=== PATIENT | female | born 1960 | race Caucasian/White ===

== ENCOUNTER 2023-03-13 11:05 | Outpatient (OUT) | payer MEDICARE, SELFPAY ==
[2023-03-13 11:37] LABS: Basophils Percent Auto 0.5 % (0.2-2.0); Eosinophils Absolute Auto 0.1 10^3/uL (0.0-0.7); Eosinophils Percent Auto 1.6 % (0.9-7.0); Hematocrit 42.7 % (36.0-48.0); Hemoglobin 14.7 g/dL (12.0-16.0); Immature Granulocytes Abs Auto 0.04 10^3/uL (0.00-0.03); Immature Granulocytes Pct Auto 0.7 % (0.0-0.5); Lymphocytes Absolute Auto 1.5 10^3/uL (1.2-3.8); Lymphocytes Percent Auto 26.3 % (20.5-60.0); Mean Corpuscular HGB Conc 34.4 g/dL (29.9-35.2); Mean Corpuscular Hemoglobin 30.5 pg (26.7-34.0); Mean Corpuscular Volume 88.6 fL (81.0-99.0); Mean Platelet Volume 9.7 fL (9.5-13.5); Monocytes Absolute Auto 0.6 10^3/uL (0.3-0.8); Monocytes Percent Auto 10.2 % (1.7-12.0); Neutrophils Absolute Auto 3.5 10^3/uL (1.4-6.5); Neutrophils Percent Auto 60.7 % (43.0-75.0); Platelet Count 196 10^3/uL (150-450); Red Blood Count 4.82 10^6/uL (4.20-5.40); Red Cell Distribution Width 14.4 % (11.0-15.0); White Blood Count 5.7 10^3/uL (4.0-11.0)
[2023-03-13 12:03] LABS: Estimated Average Glucose 97 mg/dL
[2023-03-13 12:42] LABS: Alanine Aminotransferase 31 U/L (14-59); Albumin Globulin Ratio 1.2; Albumin Level 4.4 g/dL (3.4-5.0); Alkaline Phosphatase 134 U/L (46-116); Anion Gap 17.7; Aspartate Amino Transferase 35 U/L (15-37); BUN Creatinine Ratio 5.8; Bilirubin Total 0.5 mg/dL (0.2-1.0); Calcium 9.4 mg/dL (8.5-10.1); Carbon Dioxide 20.7 mmol/L (21.0-32.0); Chloride 100 mmol/L (98-107); Chol HDL Ratio 3.2; Cholesterol 279 mg/dL (<=200); Estimated GFR (African America 55 (>=60); Estimated GFR (Non-African Ame 45 (>=60); Free T3 2.73 pg/mL (2.18-3.98); Globulin 3.6 g/dL; Glucose 124 mg/dL (74-106); HDL Cholesterol 86 mg/dL (40-60); Potassium 3.4 mmol/L (3.5-5.1); Sodium 135 mmol/L (136-145); Thyroid Stimulating Hormone 4.624 uIU/mL (0.358-3.740); Triglycerides 234 mg/dL (<=150); Uric Acid 11.4 mg/dL (2.6-6.0); VLDL CHOLESTEROL 46.8 mg/dL
[2023-03-14 15:31] LABS: Bilirubin Urine NEGATIVE (NEGATIVE); Blood Urine NEGATIVE (NEGATIVE); Clarity Urine CLEAR (CLEAR); Color Urine LT. YELLOW (YELLOW); Glucose Urine UA NEGATIVE (NEGATIVE); Ketones Urine NEGATIVE (NEGATIVE); Leukocyte Esterase Urine NEGATIVE (NEGATIVE); Nitrite Urine NEGATIVE (NEGATIVE); Protein Urine NEGATIVE (NEG/TRACE); Urobilinogen Urine 0.2 EU/dL (0.2-1.0)
[2023-03-14 15:36] LABS: Bacteria Urine NONE SEEN #/HPF (NONE SEEN); Cast Seen? NONE SEEN #/LPF (NONE SEEN); Crystals Seen? None Seen #/HPF (None Seen); Mucus Urine NONE SEEN (NONE SEEN); RBC Urine NONE SEEN #/HPF (0-2); Squamous Epithelial Cell Urine MANY #/LPF (NONE/RARE); WBC Urine NONE SEEN #/HPF (NONE SEEN)
== END 2023-03-13 11:06 | disposition home or self-care (01) ==
PROVIDERS: PCP Nurse Practitioner; Visit Provider Nurse Practitioner
DX: E03.9 Hypothyroidism, unspecified (principal); E55.9 Vitamin D deficiency, unspecified; M10.9 Gout, unspecified; R73.9 Hyperglycemia, unspecified; F10.21 Alcohol dependence, in remission
CPT/HCPCS: 36415; 80053; 80061; 81001; 82306; 82607; 83036; 84443; 84481; 84550; 85025

== ENCOUNTER 2023-10-15 09:18 | Outpatient (OUT) | payer MEDICARE, SELFPAY ==
[2023-10-15 10:01] LABS: Basophils Percent Auto 0.4 % (0.2-2.0); Eosinophils Absolute Auto 0.2 10^3/uL (0.0-0.7); Eosinophils Percent Auto 2.9 % (0.9-7.0); Hematocrit 35.9 % (36.0-48.0); Hemoglobin 11.6 g/dL (12.0-16.0); Immature Granulocytes Abs Auto 0.05 10^3/uL (0.00-0.03); Lymphocytes Absolute Auto 1.2 10^3/uL (1.2-3.8); Lymphocytes Percent Auto 23.2 % (20.5-60.0); Mean Corpuscular HGB Conc 32.3 g/dL (29.9-35.2); Mean Corpuscular Hemoglobin 31.1 pg (26.7-34.0); Mean Corpuscular Volume 96.2 fL (81.0-99.0); Monocytes Absolute Auto 0.4 10^3/uL (0.3-0.8); Monocytes Percent Auto 7.5 % (1.7-12.0); Neutrophils Absolute Auto 3.4 10^3/uL (1.4-6.5); Platelet Count 116 10^3/uL (150-450); Red Blood Count 3.73 10^6/uL (4.20-5.40); Red Cell Distribution Width 14.6 % (11.0-15.0); White Blood Count 5.2 10^3/uL (4.0-11.0)
[2023-10-15 10:39] LABS: Creatinine Urine Random 70.98 mg/dL (20.00-300.00); Microalbum Creatinine Ratio Ur 18.3 mg/g (0.0-29.9); Microalbumin Urine Random <1.3 mg/dL (<=30.0)
[2023-10-15 11:02] LABS: Alanine Aminotransferase 27 U/L (14-59); Albumin Globulin Ratio 1.3; Albumin Level 3.9 g/dL (3.4-5.0); Alkaline Phosphatase 133 U/L (46-116); Anion Gap 18.7; Aspartate Amino Transferase 27 U/L (15-37); BUN Creatinine Ratio 6.7; Bilirubin Total 0.3 mg/dL (0.2-1.0); Calcium 8.9 mg/dL (8.5-10.1); Carbon Dioxide 20.7 mmol/L (21.0-32.0); Chloride 104 mmol/L (98-107); Estimated GFR (African America >60 (>=60); Estimated GFR (Non-African Ame 53 (>=60); Glucose 122 mg/dL (74-106); Potassium 4.4 mmol/L (3.5-5.1); Sodium 139 mmol/L (136-145); TSH W/ REFLEX FT4 3.418 uIU/mL (0.358-3.740); Total Protein 6.9 g/dL (6.4-8.2)
[2023-10-15 11:29] LABS: Bilirubin Urine NEGATIVE (NEGATIVE); Blood Urine NEGATIVE (NEGATIVE); Clarity Urine CLEAR (CLEAR); Color Urine YELLOW (YELLOW); Glucose Urine UA NEGATIVE (NEGATIVE); Ketones Urine NEGATIVE (NEGATIVE); Leukocyte Esterase Urine NEGATIVE (NEGATIVE); Nitrite Urine NEGATIVE (NEGATIVE); Protein Urine NEGATIVE (NEG/TRACE); Urobilinogen Urine 0.2 EU/dL (0.2-1.0)
[2023-10-15 11:33] LABS: Urine Microscopic Indicated NO
[2023-10-15 17:06] LABS: Estimated Average Glucose 105 mg/dL; Glycohemoglobin A1C 5.3 % (4.5-6.2)
== END 2023-10-15 09:19 | disposition home or self-care (01) ==
LOC: LAB 09:20
PROVIDERS: PCP Nurse Practitioner; Visit Provider Nurse Practitioner
DX: E03.9 Hypothyroidism, unspecified (principal); E55.9 Vitamin D deficiency, unspecified; E53.8 Deficiency of other specified B group vitamins; R42 Dizziness and giddiness; I10 Essential (primary) hypertension; E59 Dietary selenium deficiency; R73.09 Other abnormal glucose
CPT/HCPCS: 36415; 80053; 81001; 81003; 82043; 82306; 82570; 82607; 83036; 84443; 85025

== ENCOUNTER 2024-01-02 16:16 | Observation (INO) | payer MEDICARE, SELFPAY ==
[2024-01-02] VITALS (31 sets, daily range): BP systolic 119–167; BP diastolic 75–108; PULSE 48–68; TEMP 36.4–36.9; O2SAT 48–99; BMI 25.4
--- NOTE | 2024-01-02 16:59 | CT_ITS ---
[facility] [address] [place], [place] [address] Patient Name: ROSENDA ALEXANDER MRN: [id number] date: 1960 Sex: F Assigned Patient Location: ER Current Patient Location: .[facility] Accession/Order Number: [id number] Exam Date: 01/02/2024 18:05 Report Date: 01/02/2024 20:01 At the request of: JEAN CLAUDE CARLOS Procedure: CT abdomen pelvis w con EXAM: CT abdomen pelvis w con HISTORY: Abdominal pain . Nausea, vomiting, diarrhea, and dizziness for one month. COMPARISON: None. TECHNIQUE: Enhanced helical acquisition obtained through the abdomen and the pelvis. FINDINGS: Moderate calcifications of the partially included coronary arteries. There is mild image degradation secondary to patient motion. The visualized lung bases and pleural spaces are clear. Hepatic steatosis. Prior cholecystectomy. The spleen, pancreas, and the adrenal glands are unremarkable. Moderate bilateral renal cortical scarring. Bilateral renal cysts, the largest arising exophytically from the posterior right renal cortex measuring 2.3 cm. Retroaortic left renal vein, anatomic variant. Moderate diffuse atherosclerotic disease throughout the abdominal aorta and iliac arteries. No enlarged lymph nodes within the abdomen or the pelvis. Normal appendix. There appears to be mild diffuse colonic wall thickening with minimal adjacent pericolonic edema, which raises concern for an underlying mild pancolitis. Trace ascites within the pelvis. CT/CT abdomen pelvis w con IMPRESSION: 1. There appears to be mild diffuse colonic wall thickening with minimal adjacent pericolonic edema which suggests a diffuse mild pancolitis. Recommend correlation for C. difficile. 2. Trace ascites. 3. Normal appendix. 4. Bilateral renal cortical scarring. Bilateral renal cysts. 5. Hepatic steatosis. Prior cholecystectomy. Electronically authenticated by: MOLLY CONTE Date: 01/02/2024 20:01
--- NOTE | 2024-01-02 16:59 | ECG_ITS ---
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
--- NOTE | 2024-01-02 17:00 | ED.GENADUL1 ---
HPI HPI - General Adult General Chief complaint: Nausea/Vomiting/Diarrhea Stated complaint: Nausea/Vomiting/Diarrhea Time Seen by Provider: 01/02/24 16:42 Source: patient Mode of arrival: walk-in Limitations: no limitations History of Present Illness HPI narrative: Patient is a 63-year-old female with a history of alcoholism who presents to the emergency department for a 1 month history of constant nausea. She reports associated vomiting and diarrhea. She states she last had 2 beers yesterday. She reports diffuse abdominal pain. She has not had any blood in her stool but states she has vomited and seen a small amount of blood. She had an EGD years ago showing a bleeding ulcer. She has not had any persistent hematemesis. She states she called her PCP office but could not get in and came to the ER. She has no fevers, upper respiratory symptoms, chest pain, syncope, urinary symptoms. Related Data Allergies Allergy/AdvReac Type Severity Reaction Status Date / Time Penicillins Allergy Mild Verified 01/02/24 16:21 Opioid HPI Opioid Management Most Recent Opioid Data: No Data to Display Review of Systems ROS Constitutional Denies: fever or chills Ears, nose, mouth, and throat Denies: throat pain or nasal congestion Cardiovascular Denies: chest pain Respiratory Denies: shortness of breath Gastrointestinal Reports: abdominal pain, nausea, vomiting and diarrhea Musculoskeletal Denies: back pain or neck pain Integumentary/Breast Denies: rash Neurological Denies: headache Hematologic/Lymphatic Denies: easy bruising or easy bleeding Exam Narrative Exam Narrative: Gen.: Awake, alert, in no distress Head: Normocephalic, atraumatic ENT: Moist mucous membranes Respiratory: No respiratory distress, lungs clear bilaterally Cardio: Regular rate and rhythm Gastrointestinal: Abdomen is soft, nondistended and nontender to palpation Extremities: Moves extremities equally Psych: Normal mood and affect Neuro: No focal neuro deficit Skin: Warm, dry, intact Constitutional Vital Signs, click to edit/add: Last Vital Signs Temp 98.5 F 01/02/24 16:21 Pulse 64 01/02/24 16:21 Resp 18 01/02/24 16:21 BP 138/75 01/02/24 16:21 Pulse Ox 99 01/02/24 16:21 O2 Del Method Room Air 01/02/24 16:21 Course Vital Signs Vital signs: Vital Signs Temperature 98.5 F 01/02/24 16:21 Pulse Rate 64 01/02/24 16:21 Respiratory Rate 18 01/02/24 16:21 Blood Pressure 138/75 01/02/24 16:21 Pulse Oximetry 99 01/02/24 16:21 Oxygen Delivery Method Room Air 01/02/24 16:21 Temperature 98.5 F 01/02/24 16:21 Pulse Rate 64 01/02/24 16:21 Respiratory Rate 18 01/02/24 16:21 Blood Pressure 138/75 01/02/24 16:21 Pulse Oximetry 99 01/02/24 16:21 Oxygen Delivery Method Room Air 01/02/24 16:21 Medical Decision Making MDM Narrative Medical decision making narrative: Patient treated with IV fluids, banana bag. Zofran given for nausea. Patient reports still feeling nauseous, she feels generally weak. Labs show low magnesium, low potassium. She was treated with a banana bag, oral potassium and IV magnesium. CT shows pancolitis with concern for possible C. difficile. Stool culture is pending, patient treated with IV Cipro and FlagylShe will be admitted for IV fluids, symptom control. Stable at time of admission to the hospitalist. She was strongly encouraged to give a stool specimen to rule out C. difficile. Medical Records Medical records reviewed: Yes I reviewed the patient's medical records Lab Data Lab results reviewed: Yes I reviewed the patient's lab results Labs: Lab Results 01/02/24 Range/Units 17:05 WBC 4.7 (4.0-11.0) 10^3/uL RBC 4.24 (4.20-5.40) 10^6/uL Hgb 13.2 (12.0-16.0) g/dL Hct 38.8 (36.0-48.0) % MCV 91.5 (81.0-99.0) fL MCH 31.1 (26.7-34.0) pg MCHC 34.0 (29.9-35.2) g/dL RDW 13.5 (11.0-15.0) % Plt Count 130 L (150-450) 10^3/uL MPV 11.2 (9.5-13.5) fL Neut % (Auto) 60.7 (43.0-75.0) % Lymph % (Auto) 26.0 (20.5-60.0) % [place] % (Auto) 9.5 (1.7-12.0) % Eos % (Auto) 2.1 (0.9-7.0) % Baso % (Auto) 0.6 (0.2-2.0) % Neut # (Auto) 2.9 (1.4-6.5) 10^3/uL Lymph # (Auto) 1.2 (1.2-3.8) 10^3/uL [place] # (Auto) 0.5 (0.3-0.8) 10^3/uL Eos # (Auto) 0.1 (0.0-0.7) 10^3/uL Baso # (Auto) 0.0 (0.0-0.1) 10^3/uL Abs Immat Gran (auto) 0.05 H (0.00-0.03) 10^3/uL Imm/Tot Granulo (auto) 1.1 H (0.0-0.5) % Sodium 138 (136-145) mmol/L Potassium 3.2 L (3.5-5.1) mmol/L Chloride 99 (98-107) mmol/L Carbon Dioxide 20.3 L (21.0-32.0) mmol/L Anion Gap 21.9 BUN 3.0 L (7.0-18.0) mg/dL Creatinine 0.84 (0.55-1.02) mg/dL Est GFR ( Amer) >60 (>=60) Est GFR (Non-Af Amer) >60 (>=60) BUN/Creatinine Ratio 3.6 Glucose 109 H (74-106) mg/dL Lactate 2.3 H* (0.4-2.0) mmol/L Calcium 9.1 (8.5-10.1) mg/dL Magnesium 1.7 L (1.8-2.4) mg/dL Total Bilirubin 0.5 (0.2-1.0) mg/dL AST 171 H (15-37) U/L ALT 104 H (14-59) U/L Alkaline Phosphatase 164 H (46-116) U/L Total Protein 7.2 (6.4-8.2) g/dL Albumin 3.4 (3.4-5.0) g/dL Globulin 3.8 g/dL Albumin/Globulin Ratio 0.9 Lipase 70.0 (16.0-77.0) U/L Ethanol Quant 4 mg/dL Imaging Data CT scan - abdomen: Attestation: I have reviewed the pertinent imaging results. Radiologist's impression: ITS Impressions Abdomen/Pelvis CT 01/02/24 16:59 IMPRESSION: 1. There appears to be mild diffuse colonic wall thickening with minimal adjacent pericolonic edema which suggests a diffuse mild pancolitis. Recommend correlation for C. difficile. 2. Trace ascites. 3. Normal appendix. 4. Bilateral renal cortical scarring. Bilateral renal cysts. 5. Hepatic steatosis. Prior cholecystectomy. Electronically authenticated by: MOLLY CONTE Date: 01/02/2024 19:33 Discharge Plan Discharge Chief Complaint: Nausea/Vomiting/Diarrhea Patient Disposition: Admitted as Observation Time of Disposition Decision: 19:54 Print Language: Belarusian Referrals: Roopa Galo NP [Primary Care Provider] - 1 week
[2024-01-02 17:11] LABS: Basophils Percent Auto 0.6 % (0.2-2.0); Eosinophils Absolute Auto 0.1 10^3/uL (0.0-0.7); Eosinophils Percent Auto 2.1 % (0.9-7.0); Hematocrit 38.8 % (36.0-48.0); Hemoglobin 13.2 g/dL (12.0-16.0); Immature Granulocytes Abs Auto 0.05 10^3/uL (0.00-0.03); Immature Granulocytes Pct Auto 1.1 % (0.0-0.5); Lymphocytes Absolute Auto 1.2 10^3/uL (1.2-3.8); Mean Corpuscular Hemoglobin 31.1 pg (26.7-34.0); Mean Corpuscular Volume 91.5 fL (81.0-99.0); Mean Platelet Volume 11.2 fL (9.5-13.5); Monocytes Absolute Auto 0.5 10^3/uL (0.3-0.8); Monocytes Percent Auto 9.5 % (1.7-12.0); Neutrophils Absolute Auto 2.9 10^3/uL (1.4-6.5); Neutrophils Percent Auto 60.7 % (43.0-75.0); Platelet Count 130 10^3/uL (150-450); Red Blood Count 4.24 10^6/uL (4.20-5.40); Red Cell Distribution Width 13.5 % (11.0-15.0); White Blood Count 4.7 10^3/uL (4.0-11.0)
[2024-01-02] MEDS: ONDANSETRON PF 4 MG/2 ML VIAL IV (17:15)
[2024-01-02] MEDS: MULTIVIT INFUSN,ADULT 4,VIT K 10 ML in 0.9 % SODIUM CHLORIDE 1,000 ML 125 ML IV (17:16)
[2024-01-02 17:33] LABS: Alanine Aminotransferase 104 U/L (14-59); Albumin Globulin Ratio 0.9; Albumin Level 3.4 g/dL (3.4-5.0); Alkaline Phosphatase 164 U/L (46-116); Anion Gap 21.9; Aspartate Amino Transferase 171 U/L (15-37); BUN Creatinine Ratio 3.6; Bilirubin Total 0.5 mg/dL (0.2-1.0); Calcium 9.1 mg/dL (8.5-10.1); Carbon Dioxide 20.3 mmol/L (21.0-32.0); Chloride 99 mmol/L (98-107); Estimated GFR (African America >60 (>=60); Estimated GFR (Non-African Ame >60 (>=60); Globulin 3.8 g/dL; Glucose 109 mg/dL (74-106); Potassium 3.2 mmol/L (3.5-5.1); Sodium 138 mmol/L (136-145); Total Protein 7.2 g/dL (6.4-8.2)
[2024-01-02 17:58] LABS: Lactate/Lactic Acid 2.3 mmol/L (0.4-2.0)
[2024-01-02 18:02] LABS: Ethanol 4 mg/dL; Magnesium 1.7 mg/dL (1.8-2.4)
[2024-01-02] MEDS: POTASSIUM CHLORIDE 10 MEQ ER TABLET 40 MEQ PO (19:58)
[2024-01-02] MEDS: PROMETHAZINE HCL 12.5 MG in 0.9 % SODIUM CHLORIDE 50 ML 202 MG IV (19:58)
[2024-01-02] MEDS: MAGNESIUM SULFATE IN WATER 2 GM/50 ML PREMIX IV (19:59)
[2024-01-02] MEDS: CIPROFLOXACIN IN 5 % DEXTROSE 400 MG/200 ML PIGGYBACK 200 MG IV (19:59)
[2024-01-02] MEDS: METRONIDAZOLE/SODIUM CHLORIDE 500 MG/100 ML PREMIX 100 MG IV (19:59)
[2024-01-02 20:27] LABS: Lactate/Lactic Acid 0.8 mmol/L (0.4-2.0)
[2024-01-02 22:18] LABS: Bilirubin Urine NEGATIVE (NEGATIVE); Blood Urine NEGATIVE (NEGATIVE); Clarity Urine CLEAR (CLEAR); Color Urine LT. YELLOW (YELLOW); Glucose Urine UA NEGATIVE (NEGATIVE); Ketones Urine NEGATIVE (NEGATIVE); Leukocyte Esterase Urine NEGATIVE (NEGATIVE); Nitrite Urine NEGATIVE (NEGATIVE); Protein Urine NEGATIVE (NEG/TRACE); Specific Gravity Urine <=1.005 (1.005-1.025); Urine Microscopic Indicated NO; pH Urine 6.5 (5.0-9.0)
[2024-01-02] MEDS: LACTATED RINGER'S SOLUTION 1,000 ML 125 ML IV (23:11)
[2024-01-02] MEDS: TRAZODONE HCL 50 MG TABLET 100 MG PO (23:11)
[2024-01-02] MEDS: CLONIDINE HCL 0.2 MG TABLET 0.200000000000000011 MG PO (23:11)
[2024-01-03] VITALS (15 sets, daily range): BP systolic 107–122; BP diastolic 66–77; PULSE 45–65; TEMP 36.3–36.8; O2SAT 49–97
[2024-01-03 05:27] LABS: Basophils Percent Auto 0.3 % (0.2-2.0); Eosinophils Absolute Auto 0.1 10^3/uL (0.0-0.7); Eosinophils Percent Auto 2.2 % (0.9-7.0); Hematocrit 33.3 % (36.0-48.0); Hemoglobin 11.1 g/dL (12.0-16.0); Immature Granulocytes Abs Auto 0.02 10^3/uL (0.00-0.03); Immature Granulocytes Pct Auto 0.5 % (0.0-0.5); Lymphocytes Absolute Auto 1.3 10^3/uL (1.2-3.8); Lymphocytes Percent Auto 36.3 % (20.5-60.0); Mean Corpuscular HGB Conc 33.3 g/dL (29.9-35.2); Mean Corpuscular Hemoglobin 31.4 pg (26.7-34.0); Mean Corpuscular Volume 94.1 fL (81.0-99.0); Mean Platelet Volume 11.1 fL (9.5-13.5); Monocytes Absolute Auto 0.5 10^3/uL (0.3-0.8); Monocytes Percent Auto 13.8 % (1.7-12.0); Neutrophils Absolute Auto 1.7 10^3/uL (1.4-6.5); Neutrophils Percent Auto 46.9 % (43.0-75.0); Platelet Count 95 10^3/uL (150-450); Red Blood Count 3.54 10^6/uL (4.20-5.40); Red Cell Distribution Width 13.8 % (11.0-15.0); White Blood Count 3.7 10^3/uL (4.0-11.0)
[2024-01-03] MEDS: METRONIDAZOLE/SODIUM CHLORIDE 500 MG/100 ML PREMIX 100 MG IV ×3 (05:41→22:31)
[2024-01-03 05:49] LABS: Alanine Aminotransferase 70 U/L (14-59); Albumin Globulin Ratio 0.9; Albumin Level 2.7 g/dL (3.4-5.0); Alkaline Phosphatase 125 U/L (46-116); Anion Gap 10.2; Aspartate Amino Transferase 80 U/L (15-37); BUN Creatinine Ratio 5.5; Bilirubin Total 0.3 mg/dL (0.2-1.0); Calcium 8.7 mg/dL (8.5-10.1); Carbon Dioxide 25.1 mmol/L (21.0-32.0); Chloride 107 mmol/L (98-107); Estimated GFR (African America >60 (>=60); Estimated GFR (Non-African Ame >60 (>=60); Globulin 2.9 g/dL; Glucose 111 mg/dL (74-106); Potassium 3.3 mmol/L (3.5-5.1); Sodium 139 mmol/L (136-145); Total Protein 5.6 g/dL (6.4-8.2)
[2024-01-03] MEDS: CLONIDINE HCL 0.2 MG TABLET 0.200000000000000011 MG PO ×2 (08:10→20:57)
[2024-01-03] MEDS: POTASSIUM CHLORIDE 10 MEQ ER TABLET 40 MEQ PO ×2 (08:10→13:19)
[2024-01-03] MEDS: ALLOPURINOL 100 MG TABLET 200 MG PO (08:11)
[2024-01-03] MEDS: THIAMINE MONONITRATE (VIT B1) 100 MG TABLET PO (08:11)
[2024-01-03] MEDS: COLCHICINE 0.6 MG TABLET 0.599999999999999978 MG PO ×2 (08:11→20:58)
[2024-01-03] MEDS: MULTIVITAMIN TABLET 1 TAB PO (08:11)
[2024-01-03] MEDS: FOLIC ACID 1 MG TABLET PO (08:11)
[2024-01-03] MEDS: METOPROLOL TARTRATE 25 MG TABLET 12.5 MG PO ×2 (08:11→20:57)
[2024-01-03] MEDS: ESCITALOPRAM 10 MG TABLET 20 MG PO (08:11)
[2024-01-03] MEDS: risperiDONE 1 MG TABLET PO (08:11)
[2024-01-03] MEDS: CIPROFLOXACIN IN 5 % DEXTROSE 400 MG/200 ML PIGGYBACK 200 MG IV ×2 (08:12→20:54)
[2024-01-03] MEDS: LACTATED RINGER'S SOLUTION 1,000 ML 125 ML IV ×2 (08:12→17:02)
[2024-01-03] MEDS: PANTOPRAZOLE SODIUM 40 MG VIAL IV (08:13)
[2024-01-03] MEDS: LORAZEPAM 1 MG TABLET PO ×2 (08:55→20:39)
[2024-01-03] MEDS: ONDANSETRON PF 4 MG/2 ML VIAL IV (08:55)
[2024-01-03 09:34] LABS: Magnesium 2.3 mg/dL (1.8-2.4)
--- NOTE | 2024-01-03 11:46 | CM.NOTE ---
Rounds made with Dr. Sosa. Samantha states she is feeling hungry now and Dr. Sosa was agreeable to advance diet as tolerated. Discussed need for stool sample. No discharge today.
--- NOTE | 2024-01-03 13:52 | P.HP_ITS ---
<Statement entered by Vic Sosa MD - 01/03/24 21:41> Patient seen and examined, agree with assessment and plan below. Presented with abdominal pain and diarrhea for several weeks. Increased pain and to ER. CT showed colitis and admitted. Started cipro and flagyl. Started clear liquid and tolerated. Resumed home medication Diagnosis: 1. Colitis 2. Abdominal pain 3. Nausea and vomiting 4. Alcohol abuse 5. HTN HPI H&P: HPI History of Present Illness Chief complaint: Nausea/Vomiting/Diarrhea, Colitis Narrative: 01/03/24 1000 This is a 63-year-old female patient with a past medical history as outlined below including hypertension, depression, anxiety, hypothyroidism, gout, tobacco dependence, and history of EtOH abuse; who presented to the ED yesterday afternoon complaining of 1 month course of nausea and vomiting and diarrhea and diffuse abdominal pain. The patient reports near daily nausea and vomiting and diarrhea up to 10 episodes per day. She reports 1 emesis mixed with blood about 3 weeks ago, but otherwise no further hematemesis. The patient reports her stools have been watery and nearly uncontrollable. She denies any fevers at home. She was trying to take care of this issue herself but finally presented to the ED for further evaluation. Workup in the ED revealed mild hypokalemia (3.2), hypomagnesemia (1.7), mild lactic acidosis (2.3, 0.8 after IV fluids), and transaminitis (AST 171, ALT 104, alk phos 164). An EtOH level was [address] of the abdomen and pelvis revealed pancolitis suspicious for C. difficile and hepatic steatosis. She was admitted in observation last night to the hospitalist service for pancolitis, rule out C. difficile, and transaminitis. At the time of my exam the patient is resting comfortably in bed. She has been unable to produce a stool sample since admission so presence of C. difficile toxin is still unknown. We will continue treatment with Cipro and Flagyl for general infectious colitis pending stool culture results. Should C. difficile be identified we will change her treatment to p.o. vancomycin. Patient's hypokalemia was repleted in the ED yesterday but it still persist on a.m. labs and we will give further KCl doses today. Additional workup for the patient's transaminitis will be ordered with an ultrasound of the liver and an acute hepatitis panel. Although we suspect alcoholic etiology, we must rule out other possible etiologies as well. Opioid HPI Opioid Management Most Recent Opioid Data: Last Pain Assessment 01/03/24 13:25 Last ORT Total Score 4 01/02/24 21:43 Last ORT Risk Category Moderate Risk 01/02/24 21:43 Review of Systems ROS Status of ROS 10 or more systems reviewed and unremark able except as noted in history and below PFSH PFS Medical History (Updated 01/03/24 @ 14:10 by Nora Dupree NP) Tobacco dependence ?F17.200 - Nicotine dependence, unspecified, uncomplicated (ICD-10) Hypertension ?I10 - Essential (primary) hypertension (ICD-10) Alcohol abuse ?F10.10 - Alcohol abuse, uncomplicated (ICD-10) Hypothyroidism ?E03.9 - Hypothyroidism, unspecified (ICD-10) Heart palpitations ?R00.2 - Palpitations (ICD-10) Anxiety ?F41.9 - Anxiety disorder, unspecified (ICD-10) Depression ?F32.A - Depression, unspecified (ICD-10) Gout ?M10.9 - Gout, unspecified (ICD-10) Family History (Updated 01/02/24 @ 21:32 by Niurka Willis RN) Other Family history of hypertension Family history of myocardial infarction Social History (Updated 01/02/24 @ 21:34 by Niurka Willis RN) Within the past year, how often did you have a drink containing alcohol: 4 or more times a week Within the past year, how many standard drinks containing alcohol did you have on a typical day: 7 to 9 Within the past year, how often did you have six or more drinks on one occasion: daily or almost daily Total score: 10 Score interpretation: A score of 3 or more indicates drinking is likely to affect patient's safety. Smoking status: Current every day smoker Non-prescribed substance use: denies use Highest level of school completed/degree received: 10th grade In a typical week, how many times do you talk on the telephone with family, friends, or neighbors: twice per week How often do you get together with friends or relatives: twice per week How often do you attend bahai or pentecostal services: never Little interest or pleasure in doing things: several days Feeling down, depressed, or hopeless: several days Feel stressed/tense/nervous/anxious/difficulty sleeping: very much Do you think of yourself as: straight/heterosexual Gender Identity: female Meds Home Medications and Allergies Home Medications ?Medication ?Instructions ?Recorded ?Confirmed ?Type allopurinol 100 mg tablet 200 mg PO DAILY 01/02/24 01/02/24 History clonidine HCl 0.2 mg tablet 0.2 mg PO Q12H 01/02/24 01/02/24 History colchicine 0.6 mg tablet 0.6 mg PO BID 01/02/24 01/02/24 History escitalopram oxalate 20 mg tablet 20 mg PO DAILY 01/02/24 01/02/24 History metoprolol tartrate 25 mg tablet 12.5 mg PO Q12H 01/02/24 01/02/24 History risperidone 1 mg tablet 1 mg PO DAILY 01/02/24 01/02/24 History trazodone 100 mg tablet 100 mg PO DAILY 01/02/24 01/02/24 History Allergies Allergy/AdvReac Type Severity Reaction Status Date / Time Penicillins Allergy Mild Verified 01/02/24 16:21 Exam Constitutional Vital Signs, click to edit/add: Last Vital Signs Temp 97.4 F L 01/03/24 13:25 Pulse 49 L 01/03/24 13:25 Resp 16 01/03/24 13:25 BP 114/71 01/03/24 13:25 Pulse Ox 95 01/03/24 13:25 O2 Del Method Room Air 01/03/24 13:25 Common normals: no apparent distress, oriented x3, alert and well nourished General appearance: cooperative Orientation/consciousness: Yes awake [facility] Common normals: normocephalic, head/scalp atraumatic, hearing grossly normal bilaterally, external nose normal and moist oral mucous membranes Eye Common normals: PERRL, EOMs intact bilaterally, conjunctivae normal and no scleral icterus Alignment: alignment normal Eyelid: eyelids normal Neck & C-Spine Common normals: full ROM, supple and no JVD Chest Common normals: inspection of chest normal Chest: symmetrical chest wall rise Respiratory Common normals: normal respiratory effort, no retractions, no use of accessory muscles and clear to auscultation bilaterally Effort & inspection: able to speak in complete sentences Auscultation: diminished lung sounds (BLL) Cardio Common normals: no JVD, regular rate, regular rhythm, S1 normal heart sound, S2 normal heart sound, no gallops, no clicks, no murmurs, no rub and peripheral pulses 2+ throughout GI Common normals: Normal to inspection, nondistended, normoactive bowel sounds present, soft to palpation, no hepatosplenomegaly, no masses and no bruits Palpation: tender (Diffuse, non-focal, mild); no guarding, not rigid and no rebound tenderness present Bladder/kidney exam: bladder normal to palpation Extremity Common normals: normal capillary refill and no pedal edema General: normal exam except as noted; no clubbing and no cyanosis Neuro Tushar Coma Scale: GCS not evaluated Common normals: CN's II-XII intact bilaterally, moves all extremities, no focal motor deficits and no sensory deficits noted Speech: speech normal Motor exam: strength 5/5 throughout Psych Common normals: mental status grossly normal, thought process normal, affect normal and activity/motor behavior normal Results Labs Labs: Short CBC 01/02/24 01/03/24 Range/Units 17:05 04:47 WBC 4.7 3.7 L (4.0-11.0) 10^3/uL Hgb 13.2 11.1 L (12.0-16.0) g/dL Hct 38.8 33.3 L (36.0-48.0) % Plt Count 130 L 95 L (150-450) 10^3/uL BMP 01/02/24 01/03/24 17:05 04:47 Sodium 138 139 Potassium 3.2 L 3.3 L Chloride 99 107 Carbon Dioxide 20.3 L 25.1 BUN 3.0 L 5.0 L Creatinine 0.84 0.91 Glucose 109 H 111 H Calcium 9.1 8.7 Liver Function 01/02/24 01/03/24 Range/Units 17:05 04:47 Total Bilirubin 0.5 0.3 (0.2-1.0) mg/dL AST 171 H 80 H (15-37) U/L ALT 104 H 70 H (14-59) U/L Alkaline Phosphatase 164 H 125 H (46-116) U/L Albumin 3.4 2.7 L (3.4-5.0) g/dL Urine 01/02/24 Range/Units 22:07 Urine Color Lt. yellow (YELLOW) Urine Clarity Clear (CLEAR) Urine pH 6.5 (5.0-9.0) Ur Specific [place] <=1.005 A (1.005-1.025) Urine Protein Negative (NEG/TRACE) mg/dL Urine Glucose (UA) Negative (NEGATIVE) mg/dL Pulse Oximetry Attestation: I have reviewed the pertinent pulse oximetry results. Imaging CT scan - abdomen: Attestation: I have reviewed the pertinent imaging results. Radiologist's impression: IMPRESSION: 1. There appears to be mild diffuse colonic wall thickening with minimal adjacent pericolonic edema which suggests a diffuse mild pancolitis. Recommend correlation for C. difficile. 2. Trace ascites. 3. Normal appendix. 4. Bilateral renal cortical scarring. Bilateral renal cysts. 5. Hepatic steatosis. Prior cholecystectomy. Assessment and Plan Assessment and Plan (1) Pancolitis: Assessment and Plan: Acute * Adm observation * IVPB Cipro/flagyl * Obtain stool sample for C-diff toxin and culture * Switch to PO Vancomycin in C-diff is positive * No stool sample to date * Clear liquid diet - AAT to bland diet * Zofran for nausea (2) Transaminitis: Assessment and Plan: Acute * Suspect 2/2 EtOH abuse * Pt report hx of 8-10 beer intake daily * More recently no more than 6 daily d/t N/V/D * No prior hx of transaminitis on previous labs * Ac hepatitis panel ordered - pending * US liver in AM to assess for cirrhosis - npo after midnight * Pt advised to pursue complete EtOH cessation (3) Hypokalemia: Assessment and Plan: Acute * Mild, K+ 3.2 in ED * Repleted w/ 40 meq PO x 1 in ED * K+ only 3.3 on AM labs today * Give additional 40 meq PO q6h x 2 doses * Likely 2/2 chronic EtOH abuse * CMP daily (4) Hypomagnesemia: Assessment and Plan: Acute * Mild, Mag 1.7 in ED * Repleted w/ 2gm Mag sulfate IVPB overnight * Recheck mag level this morning and in AM and replete as needed (5) Tobacco dependence: Assessment and Plan: Chronic * 1PPD smoking habit * Pt refuses nicoderm patch as they cause nightmares * No evidence of tobacco cravings so far (6) Hypertension: Assessment and Plan: Chronic * Continue home clonidine and lopressor (7) Alcohol abuse: Assessment and Plan: Chronic * EtOH w/d protocol w/ CIWA scoring * PRN ativan per CIWA scale * Seizure precautions * Daily multivite, folic acid, thiamine (8) Depression: Assessment and Plan: Chronic * Continue home lexapro, risperidone, and trazodone (9) Gout: Assessment and Plan: Chronic * Continue home colchicine
--- NOTE | 2024-01-03 15:22 | CM.NOTE ---
Medicare Outpatient Observation Notice reviewed and discussed with patient. Pt. verbalized understanding and signed the form. Original given to patient and copy placed in patient?s chart.
[2024-01-03] MEDS: TRAZODONE HCL 50 MG TABLET 100 MG PO (21:00)
[2024-01-04] VITALS (9 sets, daily range): BP systolic 125–153; BP diastolic 74–77; PULSE 52–70; TEMP 36.3–36.7; O2SAT 57–96
[2024-01-04] MEDS: LACTATED RINGER'S SOLUTION 1,000 ML 125 ML IV (03:33)
[2024-01-04 05:07] LABS: HBsAg Screen Negative (Negative); HCV Ab Non Reactive (Non Reactive); Hep A Ab, IgM Negative (Negative); Hep B Core Ab, IgM Negative (Negative)
[2024-01-04 05:20] LABS: Basophils Percent Auto 0.3 % (0.2-2.0); Eosinophils Absolute Auto 0.1 10^3/uL (0.0-0.7); Eosinophils Percent Auto 2.2 % (0.9-7.0); Hematocrit 31.3 % (36.0-48.0); Hemoglobin 10.3 g/dL (12.0-16.0); Immature Granulocytes Abs Auto 0.03 10^3/uL (0.00-0.03); Immature Granulocytes Pct Auto 0.9 % (0.0-0.5); Lymphocytes Absolute Auto 1.2 10^3/uL (1.2-3.8); Lymphocytes Percent Auto 37.7 % (20.5-60.0); Mean Corpuscular HGB Conc 32.9 g/dL (29.9-35.2); Mean Corpuscular Hemoglobin 31.3 pg (26.7-34.0); Mean Corpuscular Volume 95.1 fL (81.0-99.0); Mean Platelet Volume 11.7 fL (9.5-13.5); Monocytes Absolute Auto 0.5 10^3/uL (0.3-0.8); Monocytes Percent Auto 14.8 % (1.7-12.0); Neutrophils Absolute Auto 1.4 10^3/uL (1.4-6.5); Neutrophils Percent Auto 44.1 % (43.0-75.0); Platelet Count 83 10^3/uL (150-450); Red Blood Count 3.29 10^6/uL (4.20-5.40); Red Cell Distribution Width 14.3 % (11.0-15.0); White Blood Count 3.2 10^3/uL (4.0-11.0)
[2024-01-04 05:34] LABS: Alanine Aminotransferase 55 U/L (14-59); Albumin Globulin Ratio 0.9; Albumin Level 2.5 g/dL (3.4-5.0); Alkaline Phosphatase 122 U/L (46-116); Anion Gap 11.3; Aspartate Amino Transferase 50 U/L (15-37); Bilirubin Total 0.2 mg/dL (0.2-1.0); Calcium 8.9 mg/dL (8.5-10.1); Carbon Dioxide 24.1 mmol/L (21.0-32.0); Chloride 109 mmol/L (98-107); Estimated GFR (African America >60 (>=60); Estimated GFR (Non-African Ame 55 (>=60); Globulin 2.7 g/dL; Glucose 121 mg/dL (74-106); Magnesium 1.7 mg/dL (1.8-2.4); Potassium 4.4 mmol/L (3.5-5.1); Sodium 140 mmol/L (136-145); Total Protein 5.2 g/dL (6.4-8.2)
[2024-01-04] MEDS: METRONIDAZOLE/SODIUM CHLORIDE 500 MG/100 ML PREMIX 100 MG IV (06:03)
--- NOTE | 2024-01-04 07:00 | US_ITS ---
[facility] [id number] Patient Name: ROSENDA ALEXANDER MRN: [id number] date: 1960 Sex: F Assigned Patient Location: Current Patient Location: Accession/Order Number: [id number] Exam Date: 01/04/2024 08:00 Report Date: 01/04/2024 08:40 At the request of: MICHELLE MORA Procedure: US right upper quadrant EXAM: US right upper quadrant HISTORY: Assess cirrhosis vs alcoholic steatosis COMPARISON: None. TECHNIQUE: Grayscale, color and Doppler FINDINGS: The liver is normal in contour. Prominent in size measuring 19.5 cm in length. Diffuse increase in hepatic echotexture with no focal mass. Hepatopedal flow in the main portal vein. The visualized pancreas is normal. The pancreatic tail was not visualized. The gallbladder is surgically absent. Negative sonographic Chavez sign. Common bile duct measures 5.7 mm, normal. The right kidney measures 5.5 x 4.1 x 3.6 cm. The cortex measures 1.4 cm. 2.1 cm area of anechoic echogenicity upper pole, simple cyst. US/US right upper quadrant IMPRESSION: Borderline enlarged, echogenic liver suggesting hepatic steatosis Electronically authenticated by: ELEAZAR KING Date: 01/04/2024 08:40
[2024-01-04] MEDS: MAGNESIUM SULFATE IN WATER 2 GM/50 ML PREMIX IV (07:26)
--- NOTE | 2024-01-04 08:48 | CM.NOTE ---
Rounds made with Dr. Sosa. Able to tolerate a bland diet and is agreeable to discharge to home. Follow up in one week with PCP.
[2024-01-04] MEDS: CIPROFLOXACIN IN 5 % DEXTROSE 400 MG/200 ML PIGGYBACK 125 MG IV (09:02)
[2024-01-04] MEDS: MULTIVITAMIN TABLET 1 TAB PO (09:04)
[2024-01-04] MEDS: FOLIC ACID 1 MG TABLET PO (09:04)
[2024-01-04] MEDS: METOPROLOL TARTRATE 25 MG TABLET 12.5 MG PO (09:04)
[2024-01-04] MEDS: PANTOPRAZOLE SODIUM 40 MG VIAL IV (09:04)
[2024-01-04] MEDS: CLONIDINE HCL 0.2 MG TABLET 0.200000000000000011 MG PO (09:04)
[2024-01-04] MEDS: ALLOPURINOL 100 MG TABLET 200 MG PO (09:04)
[2024-01-04] MEDS: COLCHICINE 0.6 MG TABLET 0.599999999999999978 MG PO (09:04)
[2024-01-04] MEDS: ESCITALOPRAM 10 MG TABLET 20 MG PO (09:04)
[2024-01-04] MEDS: THIAMINE MONONITRATE (VIT B1) 100 MG TABLET PO (09:04)
--- NOTE | 2024-01-04 10:04 | PM.DS1 ---
DS: Providers Provider Date of admission: 01/02/24 21:03 Primary care physician: Roopa Galo NP Consults: 01/02/24 Consult to Dietitian Routine Reason for consultation: weight loss DS: Diagnosis Discharge Diagnosis (1) Pancolitis: (2) Alcoholic fatty liver: (3) Hypomagnesemia: (4) Abdominal pain: (5) Nausea & vomiting: (6) Alcohol abuse: (7) Hypertension: DS: Summary Hospital Course Hospital Course: Reason for admission: See ER note and H&P for details. 63 y/o female with history of alcohol abuse presents to ER with nausea and vomiting x 1 month. C/o diffuse abdominal pain and diarrhea. Continued pain and to ER. CT showed colitis and fatty liver. Admitted for treatment. Hospital course: Started cipro and flagyl. Initially NPO and then started clear liquids. Slowly improved. Pain mild and no further diarrhea. Tolerating clear liquids and advanced to regular. US RUQ showed fatty liver. Afebrile. Symptoms improved and discharged home. Flagyl contraindicated due to alcohol abuse and potential for disulfiram like reaction. Reports allergy to PCN and not able to use augmentin. Will discharge on 10 days of cipro. Resume home medication as directed. Follow up with PCP in 1-2 weeks. Time Spent with Patient Time attestation: Total time spent providing and/or coordinating discharge services: Time spent: greater than 30 minutes Exam Constitutional Vital Signs, click to edit/add: Last Vital Signs Temp 97.9 F 01/04/24 07:39 Pulse 70 01/04/24 09:52 Resp 20 01/04/24 07:39 BP 149/74 H 01/04/24 07:39 Pulse Ox 93 L 01/04/24 07:39 O2 Del Method Room Air 01/04/24 07:39 Documenting provider has reviewed patient's vital signs: yes Common normals: no apparent distress, oriented x3 and alert HENMT Common normals: normocephalic Eye Common normals: PERRL and EOMs intact bilaterally Respiratory Common normals: normal respiratory effort and clear to auscultation bilaterally Cardio Common normals: regular rate, regular rhythm, no gallops, no murmurs and no rub GI Auscultation: normoactive bowel sounds Palpation: tender (Mild diffuse TTP); no guarding Extremity Common normals: no pedal edema DS: Data Data Completed and Pending Labs on day of discharge: Labs from last 24 hours 01/04/24 01/02/24 04:07 17:05 WBC 3.2 L RBC 3.29 L Hgb 10.3 L Hct 31.3 L MCV 95.1 MCH 31.3 MCHC 32.9 RDW 14.3 Plt Count 83 L MPV 11.7 Neut % (Auto) 44.1 Lymph % (Auto) 37.7 [place] % (Auto) 14.8 H Eos % (Auto) 2.2 Baso % (Auto) 0.3 Neut # (Auto) 1.4 Lymph # (Auto) 1.2 [place] # (Auto) 0.5 Eos # (Auto) 0.1 Baso # (Auto) 0.0 Abs Immat Gran (auto) 0.03 Imm/Tot Granulo (auto) 0.9 H Sodium 140 Potassium 4.4 Chloride 109 H Carbon Dioxide 24.1 Anion Gap 11.3 BUN 4.0 L Creatinine 1.01 Est GFR ( Amer) >60 Est GFR (Non-Af Amer) 55 L BUN/Creatinine Ratio 4.0 Glucose 121 H Calcium 8.9 Magnesium 1.7 L Total Bilirubin 0.2 AST 50 H ALT 55 Alkaline Phosphatase 122 H Total Protein 5.2 L Albumin 2.5 L Globulin 2.7 Albumin/Globulin Ratio 0.9 Hepatitis A IgM Ab Negative Hep Bs Antigen Negative Hep B Core IgM Ab Negative Hepatitis C Antibody Non reactive Hepatitis C Interp Comment Discharge Plan Discharge Disposition: Home, Self-Care Condition: Good Discharge Medications: New ondansetron 4 mg tablet,disintegrating 4 mg PO Q6H PRN (Reason: nausea and vomiting) Qty: 20 0RF ciprofloxacin HCl 500 mg tablet 500 mg PO BID 10 Days Qty: 20 0RF Continued clonidine HCl 0.2 mg tablet 0.2 mg PO Q12H allopurinol 100 mg tablet 200 mg PO DAILY colchicine 0.6 mg tablet 0.6 mg PO BID escitalopram oxalate 20 mg tablet 20 mg PO DAILY metoprolol tartrate 25 mg tablet 12.5 mg PO Q12H risperidone 1 mg tablet 1 mg PO DAILY trazodone 100 mg tablet 100 mg PO DAILY Patient Comments: at bedtime Activity: increase activity as tolerated Diet: advance to your usual diet Print Language: Turkmen Patient Instructions: Ciprofloxacin (By mouth), Ondansetron (By mouth), Abdominal Pain (DC) Forms: Portal Instructions
--- NOTE | 2024-01-07 15:37 | CM.DCFOLLOWU ---
1st attempt 01/07/24, no answer
--- NOTE | 2024-01-08 15:21 | CM.DCFOLLOWU ---
Person spoke with: patient How are you feeling? well How is your pain? fine Did you understand your discharge instructions? yes Do you have any questions about your discharge instructions? no Were you given any prescriptions at discharge? yes Were you able to get your prescriptions filled? yes Do you understand how to take your medications as ordered? yes Do you have any questions about your follow up appointment and do you plan to keep your follow up appointment? no questions, has follow up Is there anything else that you would like to discuss? no Questions/Comments/Concerns/Other: no
== END 2024-01-04 11:47 | disposition home or self-care (01) ==
LOC: ER 19:54 → MS 21:07
PROVIDERS: Nurse Practitioner; Physician Assistant; Registered Nurse; Admitting Provider Family Medicine; Emergency Provider Emergency Medicine; PCP Nurse Practitioner; Visit Provider Family Medicine
DX: K52.9 Noninfective gastroenteritis and colitis, unspecified (principal); K70.0 Alcoholic fatty liver; E83.42 Hypomagnesemia; R10.9 Unspecified abdominal pain; R11.2 Nausea with vomiting, unspecified; F10.10 Alcohol abuse, uncomplicated; I10 Essential (primary) hypertension; F41.9 Anxiety disorder, unspecified; F32.A Depression, unspecified; E03.9 Hypothyroidism, unspecified; R74.01 Elevation of levels of liver transaminase levels; E87.6 Hypokalemia; M1A.9XX0 Chronic gout, unspecified, without tophus (tophi); F17.200 Nicotine dependence, unspecified, uncomplicated; Z79.899 Other long term (current) drug therapy
CPT/HCPCS: 36415; 74177; 76705; 80053; 80074; 80320; 81003; 83605; 83690; 83735; 85025; 87045; 87493; 93005; 96361; 96365; 96366; 96368; 96375; 96376; 99285; G0378; J0744; J1836; J2250; J2405; J3475; Q9967

== ENCOUNTER 2024-01-28 08:44 | Outpatient (OUT) | payer MEDICARE, SELFPAY ==
--- OUTSIDE RECORDS SUMMARY | 2024-01-28 09:07 | XMS_ITS | CCD ---
Author Organization [facility] Care Team Providers Care Supervisor Component Assembler Name Role Phone INDURTI, PAUL V Unavailable Unavailable INDURTI, PAUL V Unavailable Unavailable CONSUELO, JOYCE Unavailable Unavailable Manav Lo Admitting Unavailable Manav Lo Attending Unavailable Manav Lo Primary Care Unavailable Charli Laurent Admitting Unavailable Charli Laurent Attending Unavailable Charli Laurent Referring Unavailable NONE, XXXX Primary Care Unavailable AICHHOLZ, INSURANCE CLAIMS EXAMINER CHEMA Admitting Unavailable AICHHOLZ, INSURANCE CLAIMS EXAMINER CHEMA Attending Unavailable AICHHOLZ, INSURANCE CLAIMS EXAMINER CHEMA Primary Care Unavailable AICHHOLZ, INSURANCE CLAIMS EXAMINER CHEMA Consulting Unavailable BEDOCS, DR DAVID Alston Admitting Unavailable BEDOCS, DR DAVID Alston Attending Unavailable AICHHOLZ, INSURANCE CLAIMS EXAMINER CHEMA Primary Care Unavailable BEDOCS, DR DAVID Alston Consulting Unavailable AICHHOLZ, CHEMA Attending Unavailable AICHHOLZ, CHEMA Attending Unavailable AICHHOLZ, CHEMA Attending Unavailable Allergies Allergy Classification Reported Allergen(s) Allergy Type Date of Onset Reaction(s) Facility (1 source) Clindamycin Drug Allergy 02-27-2014 [facility] Repository (1 source) Penicillins Drug allergy (disorder) [facility] Problems Problem Classification Problem Date Documented Da te Episodic/Chronic Gout and other crystal arthropathies (1 source) Gout, unspecified; Translations: [GOUT UNSPECIFIED] Onset: 03-01-2022 Chronic Nutritional deficiencies (1 source) Vitamin D deficiency, unspecified; Translations: [VITAMIN D DEFICIENCY UNSPECIFIED] Onset: 03-01-2022 Chronic Other inflammatory condition of skin (4 sources) Psoriasis vulgaris; Translations: [PSORIASIS VULGARIS] Onset: 03-30-2022 Chronic Other inflammatory condition of skin (1 source) Other psoriatic arthropathy; Translations: [OTHER PSORIATIC ARTHROPATHY] Onset: 04-02-2022 Chronic Skin and subcutaneous tissue infections (1 source) Cutaneous abscess of left hand; Translations: [Cutaneous abscess of left hand] Onset: 10-30-2017 Episodic Thyroid disorders (4 sources) Hypothyroidism, unspecified; Translations: [HYPOTHYROIDISM UNSPECIFIED] Onset: 02-27-2022 Chronic Results Test Name Value Interpretation Reference Range Facility QUANTIFERON TB GOLD PLUSon 0 04-01-2022 QuantiFERON Criteria Comment Normal [facility] Comment on above: Result Comment: Juan tiFERON-TB Gold Plus is a qualitative indirect test for M tuberculosis infection (including disease) and is intended for use in conjunction with risk assessment, radiography, and other medical and diagnostic evaluations. The QuantiFERON-TB Gold Plus result is determined by subtracting the Nil value from either TB antigen (Ag) value. The Mitogen tube serves as a control for the test. Performed By: #### Q NTTB #### [facility] [address] [place] [address] Dr. Jewel Rascon QuantiFERON Incubation Incubation performed. Normal [facility] Comment on above: Performed By: #### Q NTTB #### [facility] [address] [place] [address] Dr. Jewel Rascon QuantiFERON Mitogen Value >10.00 Normal [facility] Comment on above: Performed By: #### Q NTTB #### [facility] [address] [place] [address] Dr. Jewel Rascon QuantiFERON Nil Value 0.03 IU/mL Normal [facility] Comment on above: Performed By: #### Q NTTB #### [facility] [address] [place] [address] Dr. Jewel Rascon QuantiFERON TB1 Ag Value 0.09 IU/mL Normal [facility] Comment on above: Performed By: #### Q NTTB #### [facility] [address] [place] [address] Dr. Jewel Rascon QuantiFERON TB2 Ag Value 0.08 IU/mL Normal [facility] Comment on above: Performed By: #### Q NTTB #### [facility] [address] [place] [address] Dr. Jewel Rascon QuantiFERON-TB Gold Plus Negative Normal Negative [facility] Comment on above: Result Comment: No r esponse to M tuberculosis antigens detected. Infection with M tuberculosis is unlikely, but high risk individuals should be considered for additional testing (ATS/IDSA/CDC Clinical Practice Guidelines, 2017). The reference range is an Antigen minus Nil result of <0.35 IU/mL. Chemiluminescence immunoassay methodology Performed By: #### Q NTTB #### [facility] [address] [place] [address] Dr. Jewel Rascon HEP B COREon 03-31-2022 Hep B Core Ab, Tot Negative Normal Negative [facility] Comment on above: Performed By: #### H BCORE #### [facility] [address] [place] [address] Dr. Jewel Rascon HEP B SURFACE ANTIGEN SCREEN on 03-31-2022 HBsAg Screen Negative Normal Negative [facility] Comment on above: Performed By: #### H EPBSRF #### [facility] [address] [place] [address] Dr. Jewel Rascon HEPATITIS B SURFACE ANTIBODY , QUANTon 03-31-2022 Hepatitis B Surf AB Quant <3.1 Critically low Immunity>9. 9 [facility] Comment on above: Result Comment: Stat us of Immunity Anti-HBs Level Inconsistent with Immunity 0.0 - 9.9 Consistent with Immunity >9.9 Performed By: #### H EPBSRF #### [facility] [address] [place] [address] Dr. Jewel Rascon HEPATITIS C ANTIBODYon 03-31 Hep C Virus Ab <0.1 Normal 0.0-0.9 [facility] Comment on above: Result Comment: Nega tive: < 0.8 Indeterminate: 0.8 - 0.9 Positive: > 0.9 . HCV antibody alone does not differentiate between previous resolved infection and active infection. The CDC and current clinical guidelines recommend that a positive HCV antibody result be followed up with an HCV RNA test to support the diagnosis of acute HCV infection. [facility] offers Hepatitis C Virus (HCV) RNA, Diagnosis, MEGHAN (303539) and Hepatitis C Virus (HCV) Antibody with reflex to Quantitative Real-time PCR (610321). Performed By: #### H CV #### [facility] [address] [address] [address] Jewel Rascon CBC AUTO DIFFon 03-30-2022 BASO # 0.0 103/ul Normal 0.0-0.1 [facility] Comment on above: Performed By: #### C BC #### [facility] [address] [address] [address] Jewel Rascon Basophils/100 WBC (Bld) 0.8 % Normal 0.2-2.0 [facility] Comment on above: Performed By: #### C BC #### [facility] [address] [place] [address] Dr. Jewel Rascon EO # 0.2 103/ul Normal 0.0-0.7 [facility] Comment on above: Performed By: #### C BC #### [facility] [address] [place] [address] Dr. Jewel Rascon Eosinophils/100 WBC (Bld) 3.0 % Normal 0.9-7.0 [facility] Comment on above: Performed By: #### C BC #### [facility] [address] [place] [address] Dr. Jewel Rascon Erythrocyte distribution width (RBC) [Ratio] 13.3 % Normal 11.0-15.0 [facility] Comment on above: Performed By: #### C BC #### [facility] [address] [place] [address] Dr. Jewel Rascon Hematocrit (Bld) [Volume fraction] 35.8 % Critically low 36.0-48.0 [facility] Comment on above: Performed By: #### C BC #### [facility] [address] [place] [address] Dr. Jewel Rasocn Hemoglobin (Bld) [Mass/Vol] 11.6 g/dL Critically low 12.0-16.0 [facility] Comment on above: Performed By: #### C BC #### [facility] [address] [place] [address] Dr. Jewel Rascon IG # 0.02 10e3/ul Normal 0.00-0.03 [facility] Comment on above: Performed By: #### C BC #### [facility] [address] [place] [address] Dr. Jewel Rascon IG % 0.4 % Normal 0.0-0.5 [facility] Comment on above: Performed By: #### C BC #### [facility] [address] [place] [address] Dr. Jewel Rascon LYMPH # 1.7 103/ul Normal 1.2-3.8 [facility] Comment on above: Performed By: #### C BC #### [facility] [address] [place] [address] Dr. Jewel Rascon Lymphocytes/100 WBC (Bld) 32.2 % Normal 20.5-60.0 [facility] Comment on above: Performed By: #### C BC #### [facility] [address] [place] [address] Dr. Jewel Rascon MANUAL DIFF REQ NO Normal [facility] Comment on above: Performed By: #### C BC #### [facility] [address] [place] [address] Dr. Jewel Rascon MCH (RBC) [Entitic mass] 29.4 pg Normal 26.7-34.0 [facility] Comment on above: Performed By: #### C BC #### [facility] [address] [place] [address] Dr. Jewel Rascon MCHC (RBC) [Mass/Vol] 32.4 g/dL Normal 29.9-35.2 [facility] Comment on above: Performed By: #### C BC #### [facility] [address] [place] [address] Dr. Jewel Rascon MCV (RBC) [Entitic vol] 90.9 fL Normal 81.0-99.0 [facility] Comment on above: Performed By: #### C BC #### [facility] [address] [place] [address] Dr. Jewel Rascon MONO # 0.5 103/ul Normal 0.3-0.8 [facility] Comment on above: Performed By: #### C BC #### [facility] [address] [address] [address] Jewel Rascon Monocytes/100 WBC (Bld) 9.3 % Normal 1.7-12.0 [facility] Comment on above: Performed By: #### C BC #### [facility] [address] [address] [address] Jewel Rascon NEUT # 2.9 103/ul Normal 1.4-6.5 [facility] Comment on above: Performed By: #### C BC #### [facility] [address] [place] [address] Dr. Jewel Rascon Neutrophils/100 WBC (Bld) 54.3 % Normal 43.0-75.0 [facility] Comment on above: Performed By: #### C BC #### [facility] [address] [place] [address] Dr. Jewel Rascon Platelet mean volume (Bld) [Entitic vol] 9.6 fL Normal 9.5-13.5 [facility] Comment on above: Performed By: #### C BC #### [facility] [address] [place] [address] Dr. Jewel Rascon PLT 186 103/ul Normal 150-450 [facility] Comment on above: Performed By: #### C BC #### [facility] [address] [place] [address] Dr. Jewel Rascon RBC 3.94 106/ul Critically low 4.20-5.40 [facility] Comment on above: Performed By: #### C BC #### [facility] [address] [place] [address] Dr. Jewel Rascon WBC 5.3 103/ul Normal 4.0-11.0 [facility] Comment on above: Performed By: #### C BC #### [facility] [address] [place] [address] Dr. Jewel Rascon LIPID PROFILEon 03-30-2022 CHOL-HDL RATIO NORM SEE BELOW Normal [facility] Comment on above: Result Comment: 3.3 - 4.4 LOW RISK 4.4 - 7.1 AVERAGE RISK 7.1 - 11.0 MODERATE RISK >11.0 HIGH RISK Performed By: #### L IPID, LIVER, BMP #### [facility] [address] [place] [address] Dr. Jewel Rascon Cholesterol [Mass/Vol] 192 mg/dL Normal <=200 Th [facility] Comment on above: Performed By: #### L IPID, LIVER, BMP #### [facility] [address] [place] [address] Dr. Jewel Rascon Cholesterol in HDL [Mass/Vol] 57 mg/dL Normal 40-60 [facility] Comment on above: Performed By: #### L IPID, LIVER, BMP #### [facility] [address] [place] [address] Dr. Jewel Rascon Cholesterol in LDL [Mass/Vol] 82.2 mg/dL Normal [facility] Comment on above: Performed By: #### L IPID, LIVER, BMP #### [facility] [address] [place] [address] Dr. Jewel Rascon Cholesterol.total/Choles terol in HDL [Mass ratio] 3.4 {ratio} Normal [facility] Comment on above: Performed By: #### L IPID, LIVER, BMP #### [facility] [address] [place] [address] Dr. Jewel Rascon HDL NORMAL > or = 60 mg/dl - LO W CARDIOVASCULAR RISK <40 mg/dl - HIGH CARDIOVASCULAR RISK Normal [facility] Comment on above: Performed By: #### L IPID, LIVER, BMP #### [facility] [address] [place] [address] Dr. Jewel Rascon LDL CALC NORMAL SEE BELOW Normal [facility] Comment on above: Result Comment: <100 mg/dl OPTIMAL 100 - 129 mg/dl NEAR OR ABOVE OPTIMAL 130 - 159 mg/dl BORDERLINE HIGH 160 - 189 mg/dl HIGH >190 mg/dl VERY HIGH Performed By: #### L IPID, LIVER, BMP #### [facility] [address] [place] [address] Dr. Jewel Rascon Triglyceride [Mass/Vol] 264 mg/dL Critically high <=150 [facility] Comment on above: Performed By: #### L IPID, LIVER, BMP #### [facility] [address] [address] [address] Jewel Rascon VLDL CALC 52.8 mg/dL Normal [facility] Comment on above: Performed By: #### L IPID, LIVER, BMP #### [facility] [address] [place] [address] Dr. Jewel Rascon LIVER PROFILEon 03-30-2022 Albumin [Mass/Vol] 3.9 g/dL Normal 3.4-5.0 [facility] Comment on above: Performed By: #### L IPID, LIVER, BMP #### [facility] [address] [place] [address] Dr. Jewel Rascon Albumin/Globulin [Mass ratio] 1.1 {ratio} Normal [facility] Comment on above: Performed By: #### L IPID, LIVER, BMP #### [facility] [address] [place] [address] Dr. Jewel Rascon ALP [Catalytic activity/Vol] 150 U/L Critically high 46-116 [facility] Comment on above: Performed By: #### L IPID, LIVER, BMP #### [facility] [address] [place] [address] Dr. Jewel Rascon ALT [Catalytic activity/Vol] 31 U/L Normal 14-59 [facility] Comment on above: Performed By: #### L IPID, LIVER, BMP #### [facility] [address] [place] [address] Dr. Jewel Rascon AST [Catalytic activity/Vol] 27 U/L Normal 15-37 [facility] Comment on above: Performed By: #### L IPID, LIVER, BMP #### [facility] [address] [place] [address] Dr. Jewel Rascon BILI, CONJUGATED 0.1 mg/dL Normal 0.0-0.2 [facility] Comment on above: Performed By: #### L IPID, LIVER, BMP #### [facility] [address] [place] [address] Dr. Jewel Rascon Bilirubin [Mass/Vol] 0.2 mg/dL Normal 0.2-1.0 [facility] Comment on above: Performed By: #### L IPID, LIVER, BMP #### [facility] [address] [address] [address] Jewel Rascon Globulin (S) [Mass/Vol] 3.6 g/dL Normal T [facility] Comment on above: Performed By: #### L IPID, LIVER, BMP #### [facility] [address] [address] [address] Jewel Rascon Protein [Mass/Vol] 7.5 g/dL Normal 6.4-8.2 [facility] Comment on above: Performed By: #### L IPID, LIVER, BMP #### [facility] [address] [place] [address] Dr. Jewel Rascon PROF CHEM 8 (BAS METB)on Anion gap [Moles/Vol] 16.7 mmol/L Normal [facility] Comment on above: Performed By: #### L IPID, LIVER, BMP #### [facility] [address] [address] [address] Jewel Rascon Calcium [Mass/Vol] 9.4 mg/dL Normal 8.5-10.1 [facility] Comment on above: Performed By: #### L IPID, LIVER, BMP #### [facility] [address] [address] [address] Jewel Rascon Chloride [Moles/Vol] 108 mmol/L Critically high 98-107 [facility] Comment on above: Performed By: #### L IPID, LIVER, BMP #### [facility] [address] [address] [address] Jewel Rascon CO2 [Moles/Vol] 20.5 mmol/L Critically low 21.0-32.0 [facility] Comment on above: Performed By: #### L IPID, LIVER, BMP #### [facility] [address] [address] [address] Jewel Rascon Creatinine [Mass/Vol] 1.09 mg/dL Critically high 0.55-1.02 [facility] Comment on above: Performed By: #### L IPID, LIVER, BMP #### [facility] [address] [address] [address] Jewel Rascon EGFR-AF CENTRAL AFRICAN >60 Normal >=60 [facility] Comment on above: Performed By: #### L IPID, LIVER, BMP #### [facility] [address] [address] [address] Jewel Rascon EGFR-NON AF CENTRAL AFRICAN 51 mL/min/1.73m2 Critically low >=60 [facility] Comment on above: Performed By: #### L IPID, LIVER, BMP #### [facility] [address] [place] [address] Dr. Jewel Rascon Glucose [Mass/Vol] 108 mg/dL Critically high 74-106 T [facility] Comment on above: Performed By: #### L IPID, LIVER, BMP #### [facility] [address] [place] [address] Dr. Jewel Rascon Potassium [Moles/Vol] 4.2 mmol/L Normal 3.5-5.1 [facility] Comment on above: Performed By: #### L IPID, LIVER, BMP #### [facility] [address] [place] [address] Dr. Jewel Rascon Sodium [Moles/Vol] 141 mmol/L Normal 136-145 [facility] Comment on above: Performed By: #### L IPID, LIVER, BMP #### [facility] [address] [place] [address] Dr. Jewel Rascon Urea nitrogen [Mass/Vol] 14.0 mg/dL Normal 7.0-18.0 [facility] Comment on above: Performed By: #### L IPID, LIVER, BMP #### [facility] [address] [place] [address] Dr. Jewel Rascon Urea nitrogen/Creatinine [Mass ratio] 12.8 mg/mg Normal [facility] Comment on above: Performed By: #### L IPID, LIVER, BMP #### [facility] [address] [place] [address] Dr. Jewel Rascon VIT D 25-OH LABCORPon 2021 Vitamin D, 25-Hydroxy 50.9 ng/mL Normal 30.0-100.0 [facility] Comment on above: Result Comment: Stefanie min D deficiency has been defined by the [place] of [employer] and an Endocrine Society practice guideline as a level of serum 25-OH vitamin D less than 20 ng/mL (1,2). The Endocrine Society went on to further define vitamin D insufficiency as a level between 21 and 29 ng/mL (2). 1. IOM ([place] of [employer]). 2010. Dietary reference intakes for calcium and D. [place]: The National Academies Press. 2. Lety MF, Vipin NC, Elke TERESA, et al. Evaluation, treatment, and prevention of vitamin D deficiency: an Endocrine Society clinical practice guideline. JCEM. 2010; 96(7):1911-30. Performed By: #### V ITADLC #### [facility] [address] [address] [address] Jewel Rascon FREE T4on 02-27-2022 Free T4 [Mass/Vol] 0.80 ng/dL Normal 0.76-1.46 [facility] Comment on above: Performed By: #### F T4 #### [facility] [address] [place] [address] Dr. Jewel Rascon TSHon 02-27-2022 TSH 2.639 uIU/mL Normal 0.358-3.740 [facility] Comment on above: Performed By: #### H EPBSRF #### [facility] [address] [address] [address] Jewel Rascon URIC ACID SERUMon 02-27-2022 Urate [Mass/Vol] 8.7 mg/dL Critically high 2.6-6.0 [facility] Comment on above: Performed By: #### H EPBSRF #### [facility] [address] [place] [address] Dr. Jewel Rascon Coding Summary.on 08-17-2018 Coding Summary. CODING DATE: 019 [facility] STATUS: Home (Routine DC) PAYOR: Medicare APC DESCRIPTION 5522 Level 2 Imaging without Contrast ADMIT DX: REASON FOR VISIT DX: M79.662 Pain in left lower leg FINAL DX: PRINCIPAL: M79.662 Pain in left lower leg SECONDARY: PYMT PROC APC STAT DESCRIPTION DOCTOR NAME DATE NOTE: The code number assigned matches the documented diagnosis and / or procedure in the patient's chart. However, the narrative phrase printed from the coding software may appear abbreviated, or result in slightly different terminology. Coded By: Sunshine Stokes CphT Date Saved: 08/17/2018 07:12 am [facility] US LE Venous Duplex Lefton 0 08-10-2018 LE Venous Duplex Left Exam Date/Time: 08/09/2018 17:32 EST Reason for Exam: PAIN LEFT LOWER LEG Report IMPRESSION: NO DEEP VEIN THROMBOSIS CLINICAL HISTORY: PAIN LEFT LOWER LEG COMPARISON: NONE. FINDINGS: Left lower extremity venous duplex sonogram was performed. Deep veins are easily compressible. Normal deep venous blood flow is documented with color Doppler images and pulsed Doppler waveform images. Incidentally noted was evidence of venous insufficiency in the greater saphenous vein. FINAL REPORT Dictated: 08/10/2018 12:07 pm Aydee SALDIVAR, Denny Ponce. Signed (Electronic Signature): 08/10/2018 12:07 pm Signed by: Denny Bajwa MD Transcribed by: DWIGHT Technologist: ALO [facility] Cult,Funguson 12-03-2017 Cult,Fungus Specimen Description .HAND Performed at [address] [address] Special Requests NOT REPORTEDCulture NO GROWTH 30 DAYS Performed at [address] [address] Report Status FINAL 12/03/2017 [facility] Comment on above: Performed By: #### C DP, CP, TSH, LIPR ####[address] [address] #### T3, T4 ####[address] [address] DISCHARGE SUMMARYon 11-06-19 18 DISCHARGE SUMMARY [address] [id number] DISCHARGE SUMMARYPATIENT NAME: ROSENDA ALEXANDER : 1960MED REC NO: [id number] [id number]: [id number] ADMIT DATE: 10/30/2017PROVIDER: Paul Buckley DISCH DATE:HISTORY OF PRESENTING ILLNESS AND REASON FOR CURRENT ADMISSION: Thepatient is a 57-year-old female who is feeling depressed and sad, havingsuicidal thoughts and is planning to kill himself by inhaling fumes fromcar and . She is also drinking and she had long-term history of alcoholdependence. She had recent DUI that is her fifth or sixth one and she isgoing to go to alf for it.PAST PSYCHIATRIC HISTORY: History of major depression and alcoholdependence.MEDICAL AND SURGICAL HISTORY: She has hypothyroidism, psoriasis, liverdisease, hypertension and abscess of left hand, which was incised anddrained.ALLERGIES: She is allergic to CLINDAMYCIN and PENICILLINS.COURSE DURING THE HOSPITAL STAY: After getting admitted to the hospital,she was started on Rexulti 1 mg daily, colchicine 0.6 mg p.o. daily,Trintellix 10 mg p.o. daily. With this, she stabilized and she is beingdischarged home.MENTAL STATUS EXAMINATION: At the time of discharge, the patient iscooperative. She has adequate psychomotor activity. She has adequaterapport. Her speech is within normal limits. Her mood subjectively okay,objectively appears to be euthymic. She has appropriate affect. Thoughtprocess within normal limits. Thought contents predominantly within normallimits. She denies any hallucinations or delusion. She denies anysuicidal or homicidal thoughts or plans. She is of average intelligence. She is oriented to time, place and person. Her memory to recent, remoteand immediate events are within normal limits. She has adequate attentionand concentration. Her insight and judgment are fair. Her abstraction isfair.DIAGNOSIS: Major depressive disorder, alcohol dependence, psoriasis, gout,arthritis, abscess in the hand.TREATMENT AND PLAN: The patient is discharged. [facility]PAUL ANNID: 11/04/2017 22:01:58 [id number]#: [id number] Doc#: [id number]: Normal [facility] Cult,Aerobe/Anaerobeon 11-04 Cult,Aerobe/Anaerobe Specimen Descriptio n .HAND Performed at [address] [address] Special Requests NOT REPORTEDDirect Exam MODERATE NEUTROPHILS FEW GRAM POSITIVE COCCI IN PAIRS Culture METHICILLIN RESISTANT STAPHYLOCOCCUS AUREUS LIGHT GROWTH NO ANAEROBIC ORGANISMS ISOLATED AT 5 DAYS Performed at [address] [address] Report Status FINAL 11/07/2017SUSCEPTIBILITYO rganism MRSAMethod MICPenicillin >=0.5 RESISTANTCefoxitin Screen NOT REPORTEDCiprofloxacin NOT REPORTEDClindamycin <=0.25 SUSCEPTIBLEErythromycin 0.5 SUSCEPTIBLEGentamicin <=0.5 SUSCEPTIBLEInduced Clind Resist NOT REPORTEDLevofloxacin 1 SUSCEPTIBLELinezolid NOT REPORTEDMoxifloxacin NOT REPORTEDNitrofurantoin NOT REPORTEDOxacillin >=4 RESISTANTSynercid NOT REPORTEDRifampin NOT REPORTEDTetracycline <=1 SUSCEPTIBLETigecycline NOT REPORTEDTrimethoprim/Sulf a <=10 SUSCEPTIBLEVancomycin 1 SUSCEPTIBLE Normal [facility] Comment on above: Performed By: #### C DP, CP, TSH, LIPR ####[address] [address] #### T3, T4 ####[place] [address] APTTon 11-02-2017 aPTT 23.8 s Normal 23.0-31.0 [facility] Comment on above: Result Comment: IV H eparin Therapy Range: 64.3-87.8Performed at [address] [address] Performed By: #### C DP, CP, TSH, LIPR ####[address] [address] #### T3, T4 ####[facility] [facility] [place] [address] CBCon 11-02-2017 Erythrocyte distribution width Auto Ratio (RBC) 13.6 % Normal 11.5-14.9 [facility] Comment on above: Performed By: #### C BC, PT, PTT ####[facility] [place] [address] Erythrocytes (RBC) 3.73 10*6/uL Low 4.0-5.2 [facility] Comment on above: Performed By: #### C BC, PT, PTT ####[facility] [place] [address] Hematocrit (HCT) 34.2 % Low 36-46 [facility] Comment on above: Performed By: #### C BC, PT, PTT ####[facility] [place] [address] Hemoglobin mass conc (Bld) 11.1 g/dL Low 12.0-16.0 [facility] Comment on above: Performed By: #### C BC, PT, PTT ####[facility] [place] [address] MCH 29.7 pg Normal 26-34 [facility] Comment on above: Performed By: #### C BC, PT, PTT ####[facility] [place] [address] MCHC mass conc (RBC) 32.4 g/dL Normal 31-37 [facility] Comment on above: Performed By: #### C BC, PT, PTT ####[facility] [place] [address] MCV 91.7 fL Normal 80-100 [facility] Comment on above: Performed By: #### C BC, PT, PTT ####[address] [place] [address] Platelet mean volume (PMV) 8.1 fL Normal 6.0-12.0 [facility] Comment on above: Result Comment: Perf ormed at [address] [place] [address] Performed By: #### C BC, PT, PTT ####[address] [address] Platelets 208 10*3/uL Normal 150-450 [facility] Comment on above: Performed By: #### C BC, PT, PTT ####[address] [address] WBC (Leukocytes) 7.5 10*3/uL Normal 3.5-11.0 [facility] Comment on above: Performed By: #### C BC, PT, PTT ####[address] [address] Erythrocytes (RBC) NOT REPORTED Normal [facility] Comment on above: Performed By: #### C BC, PT, PTT ####[address] [address] PTon 11-02-2017 INR Coag RelTime (PPP) 0.9 {INR} Normal [facility] Comment on above: Result Comment: Non- therapeutic Range: INR = 0.9-1.2Therapeutic Range: Moderate Anticoagulant Intensity: INR = 2.0-3.0 High Anticoagulant Intensity: INR = 2.5-3.5Performed at [address] [address] Performed By: #### C DP, CP, TSH, LIPR ####[address] [address] #### T3, T4 ####[facility] [place] [address] Prothrombin time (PT) Coag time (PPP) 9.4 s Low 9.7-12.0 [facility] Comment on above: Performed By: #### C DP, CP, TSH, LIPR ####[facility] [place] [address] #### T3, T4 ####[address] [address] Lipid Profileon 11-01-2017 Cholesterol to HDL Ratio 1.7 {ratio} Normal <5 [facility] Comment on above: Performed By: #### L IPR ####[address] [address] HDL Cholesterol 132 mg/dL Normal >40 [facility] Comment on above: Result Comment: HDL Guidelines: <40 Undesirable 40-59 Borderline >59 Desirable Performed By: #### L IPR ####[facility] [place] [address] LDL Cholesterol 64 mg/dL Normal 0-130 [facility] Comment on above: Result Comment: LDL Guidelines: <100 Desirable 100-129 Near to/above Desirable 130-159 Borderline >159 UndesirableDirect (measured) LDL and calculated LDL are not interchangeable tests. Performed By: #### L IPR ####[facility] [place] [address] Cholesterol 218 mg/dL High <200 [facility] Comment on above: Result Comment: Chol esterol Guidelines: <200 Desirable 200-240 Borderline >240 Undesirable Performed By: #### L IPR ####[address] [place] [address] Triglyceride 108 mg/dL Normal <150 [facility] Comment on above: Result Comment: Trig lyceride Guidelines: <150 Desirable 150-199 Borderline 200-499 High >499 Very high Based on AHA Guidelines for fasting triglyceride, April 2012.Performed at [facility] [address] [place] [address] Performed By: #### L IPR ####[facility] [place] [address] Cholesterol in VLDL mass conc NOT REPORTED Normal 08-21 [facility] Comment on above: Performed By: #### L IPR ####[facility] [place] [address] XR HAND LEFT (2 VIEWS)on eGFR (non-black) EXAMINATION:2 VIEWS LEFT HAND11/01/2017 6:59 pmCOMPARISON:None.HISTORY :ORDERING SYSTEM PROVIDED HISTORY: pus draining from palm, check for foreignbodyTECHNOLOGIST PROVIDED HISTORY:Reason for exam:->pus draining from palm, check for foreign bodyOrdering Physician Provided Reason for Exam: Absess or wound on palm of [facility].FINDINGS:No radiopaque foreign body or subcutaneous gas.There is no evidence of acute fracture. There is normal alignment. No acutejoint abnormality. No focal osseous lesion. No focal soft tissue abnormality.IMPRESSION: No acute osseous abnormality.Interpreted by:JIMENA Garrettigned by:Teodoro Manley MD11/01/17inal result Normal [facility] CBC with Diffon 10-31-2017 Abs. Basophil 0.10 k/uL Normal 0.0-0.2 [facility] Comment on above: Result Comment: Perf ormed at [facility] [address] [place] [address] Performed By: #### C DP, CP, TSH, LIPR ####[facility] [place] [address] #### T3, T4 ####[address] [place] [address] Abs.Neutrophil (Seg) 7.30 k/uL Normal 1.3-9.1 [facility] Comment on above: Performed By: #### C DP, CP, TSH, LIPR ####[address] [address] #### T3, T4 ####[address] [address] Basophils/100 WBC Auto (Bld) 1 % Normal 0-2 [facility] Comment on above: Performed By: #### C DP, CP, TSH, LIPR ####[facility] [place] [address] #### T3, T4 ####[address] [address] Eosinophils 0.10 10*3/uL Normal 0.0-0.4 [facility] Comment on above: Performed By: #### C DP, CP, TSH, LIPR ####[address] [address] #### T3, T4 ####[address] [address] Eosinophils/100 leukocytes 1 % Normal 0-4 [facility] Comment on above: Performed By: #### C DP, CP, TSH, LIPR ####[address] [address] #### T3, T4 ####[address] [address] Erythrocyte distribution width Auto Ratio (RBC) 13.7 % Normal 11.5-14.9 [facility] Comment on above: Performed By: #### C DP, CP, TSH, LIPR ####[address] [address] #### T3, T4 ####[address] [address] Erythrocytes (RBC) 4.17 10*6/uL Normal 4.0-5.2 [facility] Comment on above: Performed By: #### C DP, CP, TSH, LIPR ####[facility] [place] [address] #### T3, T4 ####[address] [address] Hematocrit (HCT) 38.0 % Normal 36-46 [facility] Comment on above: Performed By: #### C DP, CP, TSH, LIPR ####[address] [address] #### T3, T4 ####[address] [address] Hemoglobin mass conc (Bld) 12.3 g/dL Normal 12.0-16.0 [facility] Comment on above: Performed By: #### C DP, CP, TSH, LIPR ####[address] [address] #### T3, T4 ####[address] [address] Lymphocytes 1.70 10*3/uL Normal 1.0-4.8 [facility] Comment on above: Performed By: #### C DP, CP, TSH, LIPR ####[facility] [place] [address] #### T3, T4 ####[address] [address] Lymphocytes/100 leukocytes 17 % Low 24-44 [facility] Comment on above: Performed By: #### C DP, CP, TSH, LIPR ####[facility] [place] [address] #### T3, T4 ####[address] [address] MCH 29.5 pg Normal 26-34 [facility] Comment on above: Performed By: #### C DP, CP, TSH, LIPR ####[address] [address] #### T3, T4 ####[address] [address] MCHC mass conc (RBC) 32.4 g/dL Normal 31-37 [facility] Comment on above: Performed By: #### C DP, CP, TSH, LIPR ####[address] [address] #### T3, T4 ####[address] [address] MCV 91.1 fL Normal 80-100 [facility] Comment on above: Performed By: #### C DP, CP, TSH, LIPR ####[address] [address] #### T3, T4 ####[address] [address] Monocytes 1.00 10*3/uL Normal 0.1-1.3 [facility] Comment on above: Performed By: #### C DP, CP, TSH, LIPR ####[address] [address] #### T3, T4 ####[address] [address] Monocytes/100 leukocytes 10 % High 1-7 [facility] Comment on above: Performed By: #### C DP, CP, TSH, LIPR ####[address] [address] #### T3, T4 ####[address] [address] Neutrophil (Seg) 71 % High 36-66 [facility] Comment on above: Performed By: #### C DP, CP, TSH, LIPR ####[address] [address] #### T3, T4 ####[address] [address] Platelet mean volume (PMV) 8.0 fL Normal 6.0-12.0 [facility] Comment on above: Performed By: #### C DP, CP, TSH, LIPR ####[address] [address] #### T3, T4 ####[address] [address] Platelets 271 10*3/uL Normal 150-450 [facility] Comment on above: Performed By: #### C DP, CP, TSH, LIPR ####[address] [address] #### T3, T4 ####[address] [address] WBC (Leukocytes) 10.2 10*3/uL Normal 3.5-11.0 [facility] Comment on above: Performed By: #### C DP, CP, TSH, LIPR ####[address] [address] #### T3, T4 ####[address] [address] Auto Diff Performed NOT REPORTED Normal [facility] Comment on above: Performed By: #### C DP, CP, TSH, LIPR ####[address] [address] #### T3, T4 ####[address] [address] Erythrocyte morphology NOT REPORTED Normal [facility] Comment on above: Performed By: #### C DP, CP, TSH, LIPR ####[address] [address] #### T3, T4 ####[address] [address] Erythrocytes (RBC) NOT REPORTED Normal [facility] Comment on above: Performed By: #### C DP, CP, TSH, LIPR ####[address] [address] #### T3, T4 ####[address] [address] Granulocytes/100 WBC (Bld) NOT REPORTED Normal 0.00-0.30 [facility] Comment on above: Performed By: #### C DP, CP, TSH, LIPR ####[address] [place] [address] #### T3, T4 ####[address] [address] Immature granulocytes #/vol (Bld) NOT REPORTED Normal 0 [facility] Comment on above: Performed By: #### C DP, CP, TSH, LIPR ####[address] [address] #### T3, T4 ####[address] [address] Platelets NOT REPORTED Normal [facility] Comment on above: Performed By: #### C DP, CP, TSH, LIPR ####[address] [address] #### T3, T4 ####[address] [address] WBC Morphology NOT REPORTED Normal [facility] Comment on above: Performed By: #### C DP, CP, TSH, LIPR ####[address] [address] #### T3, T4 ####[address] [address] Comp Metabolic Profon 2017 (cont.) Normal [facility] Comment on above: Result Comment: Aver age GFR for 50-59 years old: 93 mL/min/1.73sq mChronic Kidney Disease: <60 mL/min/1.73sq mKidney failure: <15 mL/min/1.73sq meGFR calculated using average adult body mass. Additional eGFR calculator available at:http://www.[employer]/multiple_crcl_2011.htmPerformed at [facility] [address] [place] [address] Performed By: #### C DP, CP, TSH, LIPR ####[address] [place] [address] #### T3, T4 ####[address] [place] [address] Alanine aminotransferase (ALT) 21 U/L Normal 5-33 [facility] Comment on above: Performed By: #### C DP, CP, TSH, LIPR ####[address] [place] [address] #### T3, T4 ####[address] [place] [address] Albumin 4.2 g/dL Normal 3.5-5.2 [facility] Comment on above: Performed By: #### C DP, CP, TSH, LIPR ####[address] [place] [address] #### T3, T4 ####[address] [address] Alkaline Phos 109 U/L High 35-104 [facility] Comment on above: Performed By: #### C DP, CP, TSH, LIPR ####[address] [place] [address] #### T3, T4 ####[address] [address] Anion gap 11 mmol/L Normal 9-17 [facility] Comment on above: Performed By: #### C DP, CP, TSH, LIPR ####[facility] [place] [address] [place] [address] #### T3, T4 ####[address] [address] Aspartate aminotransferase (AST) 23 U/L Normal <32 [facility] Comment on above: Performed By: #### C DP, CP, TSH, LIPR ####[address] [place] [address] #### T3, T4 ####[address] [address] Bilirubin Ql (U) 0.22 mg/dL Low 0.3-1.2 [facility] Comment on above: Performed By: #### C DP, CP, TSH, LIPR ####[address] [place] [address] #### T3, T4 ####[address] [address] Calcium 9.1 mg/dL Normal 8.6-10.4 [facility] Comment on above: Performed By: #### C DP, CP, TSH, LIPR ####[facility] [place] [address] #### T3, T4 ####[address] [address] Chloride 100 mmol/L Normal 98-107 [facility] Comment on above: Performed By: #### C DP, CP, TSH, LIPR ####[address] [address] #### T3, T4 ####[address] [address] CO2 26 mmol/L Normal 20-31 [facility] Comment on above: Performed By: #### C DP, CP, TSH, LIPR ####[facility] [place] [address] #### T3, T4 ####[address] [address] Creatinine 0.63 mg/dL Normal 0.50-0.90 [facility] Comment on above: Performed By: #### C DP, CP, TSH, LIPR ####[facility] [place] [address] #### T3, T4 ####[address] [address] eGFR (non-black) mL/min/{1.73_m2} Normal >[address] [facility] Comment on above: Performed By: #### C DP, CP, TSH, LIPR ####[facility] [place] [address] #### T3, T4 ####[facility] [place] [address] Glucose mass conc 89 mg/dL Normal 70-99 [facility] Comment on above: Performed By: #### C DP, CP, TSH, LIPR ####[facility] [place] [address] #### T3, T4 ####[facility] [place] [address] Potassium molar conc 4.0 mmol/L Normal 3.7-5.3 [facility] Comment on above: Performed By: #### C DP, CP, TSH, LIPR ####[address] [address] #### T3, T4 ####[address] [address] Protein 6.9 g/dL Normal 6.4-8.3 [facility] Comment on above: Performed By: #### C DP, CP, TSH, LIPR ####[address] [address] #### T3, T4 ####[address] [address] Sodium 137 mmol/L Normal 135-144 [facility] Comment on above: Performed By: #### C DP, CP, TSH, LIPR ####[address] [address] #### T3, T4 ####[address] [address] Urea nitrogen 16 mg/dL Normal 6-20 [facility] Comment on above: Performed By: #### C DP, CP, TSH, LIPR ####[facility] [place] [address] #### T3, T4 ####[address] [address] Albumin/Globulin Ratio NOT REPORTED Normal 1.0-2.5 [facility] Comment on above: Performed By: #### C DP, CP, TSH, LIPR ####[facility] [place] [address] [place] [address] #### T3, T4 ####[address] [address] BUN/CRE Ratio NOT REPORTED Normal 9-20 [facility] Comment on above: Performed By: #### C DP, CP, TSH, LIPR ####[facility] [place] [address] [place] [address] #### T3, T4 ####[address] [address] Staging: NOT REPORTED Normal [facility] Comment on above: Performed By: #### C DP, CP, TSH, LIPR ####[address] [place] [address] #### T3, T4 ####[address] [address] Lipid Profileon 10-31-2017 Cholesterol to HDL Ratio 1.5 {ratio} Normal <5 [facility] Comment on above: Performed By: #### C DP, CP, TSH, LIPR ####[address] [place] [address] #### T3, T4 ####[address] [address] HDL Cholesterol 142 mg/dL Normal >40 [facility] Comment on above: Result Comment: HDL Guidelines: <40 Undesirable 40-59 Borderline >59 Desirable Performed By: #### C DP, CP, TSH, LIPR ####[facility] [place] [address] #### T3, T4 ####[address] [address] LDL Cholesterol 52 mg/dL Normal 0-130 [facility] Comment on above: Result Comment: LDL Guidelines: <100 Desirable 100-129 Near to/above Desirable 130-159 Borderline >159 UndesirableDirect (measured) LDL and calculated LDL are not interchangeable tests. Performed By: #### C DP, CP, TSH, LIPR ####[address] [address] #### T3, T4 ####[address] [address] Cholesterol 220 mg/dL High <200 [facility] Comment on above: Result Comment: Chol esterol Guidelines: <200 Desirable 200-240 Borderline >240 Undesirable Performed By: #### C DP, CP, TSH, LIPR ####[address] [address] #### T3, T4 ####[address] [address] Triglyceride 131 mg/dL Normal <150 [facility] Comment on above: Result Comment: Trig lyceride Guidelines: <150 Desirable 150-199 Borderline 200-499 High >499 Very high Based on AHA Guidelines for fasting triglyceride, April 2012.Performed at [facility] [address] [place] [address] Performed By: #### C DP, CP, TSH, LIPR ####[address] [address] #### T3, T4 ####[address] [address] Cholesterol in VLDL mass conc NOT REPORTED Normal 08-21 [facility] Comment on above: Performed By: #### C DP, CP, TSH, LIPR ####[facility] [place] [address] #### T3, T4 ####[address] [address] Thyroid Stim. Horm.on 2017 Thyroid stimulating hormone (TSH) 5.28 m[IU]/L High 0.30-5.00 [facility] Comment on above: Result Comment: Perf ormed at [facility] [address] [place] [address] Performed By: #### C DP, CP, TSH, LIPR ####[facility] [place] [address] #### T3, T4 ####[address] [address] Thyroxine T4on 10-31-2017 Thyroxine (T4) 6.6 ug/dL Normal 4.5-12.0 [facility] Comment on above: Result Comment: Perf ormed at [address] [address] Performed By: #### C DP, CP, TSH, LIPR ####[facility] [place] [address] #### T3, T4 ####[address] [address] Triiodothyronine T3on 2017 Triiodothyronine T3 143 ng/dL Normal 80-200 [facility] Comment on above: Result Comment: Perf ormed at [address] [id number] [phone] Performed By: #### C DP, CP, TSH, LIPR ####[facility] [facility] [place] [address] #### T3, T4 ####[address] [place] [address] PSYCHIATRIC EVALUATIONon PSYCHIATRIC EVALUATION [address] [address] PSYCHIATRIC EVALUATIONPATIENT NAME: ROSENDA ALEXANDER : 1960MED REC NO: [id number] ROOM: [id number] NO: [id number] ADMIT DATE: 10/30/2017PROVIDER: Paul CasillasurtiCOMPREHENSIVE PSYCHIATRIC EVALUATIONHISTORY OF PRESENT ILLNESS: The patient is a 57-year-old female who isfeeling depressed and sad. She apparently got her fifth or sixth DUI, wassitting in the car, wanting to inhale carbon monoxide and kill herself. She feels that everybody in the family are against her, and they want tokill her and hurt her. She is angry, irritable and wants to end her life. With this, she is admitted from [facility].PAST PSYCHIATRIC HISTORY: History of major depressive disorder and alcoholdependence.MEDICAL AND SURGICAL HISTORY: She has a history of gout.ALLERGIES: She is allergic to CLINDAMYCIN and PENICILLIN.PERSONAL FAMILY AND SOCIAL HISTORY: The patient is refusing to give anydetails. She is upset, and she feels that she has no support, and she doesnot want to be with anybody.MENTAL STATUS EXAM: The patient is tearful, angry, irritable. She iscooperative to some extent. She has poor rapport and poor eye contact. Her psychomotor activity is mildly increased. Her speech is within normallimits. Her mood subjectively sad, objectively appears to have dysphoricmode and affect. Thought process within normal limits. She feelsdepressed, sad and suicidal, wants to kill herself and . She feels thatfamily members are against her, and they are trying to harm her. Shedenies any homicidal thoughts or plans. She denies any hallucinations. She is of average intelligence. She is oriented to time, place and person.Her memory to recent, remote and immediate events are within normal limits.She has poor attention and concentration. Her insight and judgment areimpaired. Her abstraction is concrete.DIAGNOSES:1. Major depressive disorder.2. Alcohol dependence.3. Gout.4. History of hypothyroidism.5. Hypertension.TREATMENT AND PLAN: Admit her. Start her back on medications. Stabilizeher. Treat the alcohol withdrawal.ESTIMATED LENGTH OF STAY: 10 days.PAUL INDURTID: 10/30/2017 17:32:31 SI/V_OPRIT_INJob#: [id number] Doc#: [id number]: Normal [facility] Coding Summary.on 09-12-2017 Coding Summary. CODING DATE: 018 [facility] STATUS: Home (Routine DC) PAYOR: Medicare ADMIT DX: REASON FOR VISIT DX: E78.5 Hyperlipidemia, unspecified FINAL DX: PRINCIPAL: E78.5 Hyperlipidemia, unspecified SECONDARY: I10 Essential (primary) hypertension E55.9 Vitamin D deficiency, unspecified R53.83 Other fatigue R63.4 Abnormal weight loss N95.1 Menopausal and female climacteric states L65.9 Nonscarring hair loss, unspecified PROCEDURES DOCTOR NAME DATE NOTE: The code number assigned matches the documented diagnosis and / or procedure in the patient's chart. However, the narrative phrase printed from the coding software may appear abbreviated, or result in slightly different terminology. Coded By: Alejandra Bowles Date Saved: 09/12/2017 06:55 am Normal [facility] Cortisolon 09-12-2017 Cortisol mass conc 14.9 microgram/dL [facility] Comment on above: Result Comment: [place] isol AM 6.2 - 19.4 Cortisol PM 2.3 - 11.9 Performed at: [facility] [id number] PhD Wilda Gunter Performed By: #### 2 375837, 4845869, 40590180, 9808509, 56855369, 5504432, 6835737, 3872701, 4442102, 5152268, 5191093, 7561202, 99317249, 8475082, 5706055 #### [facility] [address] [place] [address] DHEASon 09-12-2017 Dehydroepiandrosterone sulfate (DHEA-S) mass conc 54.3 microgram/dL 29.4-220.5 [facility] Comment on above: Result Comment: Perf ormed at: [address] [id number] PhD Wilda Gunter Performed By: #### 2 961707, 5058272, 48182199, 6915392, 82404960, 2655900, 5402812, 0211215, 4421855, 0341925, 0583722, 0984603, 83010314, 9459246, 8113979 #### [facility] [address] [place] [address] Estradiolon 09-12-2017 Estradiol (E2) mass conc pg/mL [facility] Comment on above: Result Comment: Adul t Female: Follicular phase 12.5 - 166.0 Ovulation phase 85.8 - 498.0 Luteal phase 43.8 - 211.0 Postmenopausal <6.0 - 54.7 1st trimester 215.0 - >4300.0 Girls (1-10 years) 6.0 - 27.0 Adeel ECLIA methodology Performed at: [address] [id number] PhD Wilda Gunter Performed By: #### 2 332547, 3319313, 85239108, 4504691, 53710150, 6254588, 5478579, 0774153, 5418362, 6872665, 6999579, 3576270, 84140722, 1559954, 9108447 #### [facility] [address] [place] [address] Testost Totalon 09-12-2017 Testosterone mass conc 12 ng/dL 3-41 [facility] Comment on above: Result Comment: Perf ormed at: [id number] [place], [place] [id number] PhD Wilda Gunter Performed By: #### 2 554637, 7084810, 71367734, 5090591, 49914673, 8782340, 9689517, 6134535, 0330639, 8164800, 0517701, 1688600, 59485129, 1300885, 7145493 #### [facility] [address] [place] [address] Auto Diffon 09-11-2017 Basophils #/vol (Bld) 0.7 % Normal 0.0-2.0 [facility] Comment on above: Order Comment: Order Added by Discern Expert. Performed By: #### 2 164149, 6715817, 93493223, 9386181, 40659644, 4608665, 1372728, 0414625, 1638327, 2644736, 0310656, 9377559, 16726205, 0741888, 9802981 #### [facility] [address] [place] [address] Basophils/Leukocytes Auto Pure number fraction (Bld) 0.0 E9/L Normal 0.0-0.2 [facility] Comment on above: Order Comment: Order Added by Discern Expert. Performed By: #### 2 676093, 0905066, 31721927, 8202656, 01804588, 5696219, 4408872, 5565562, 7102243, 3771229, 9724608, 1717451, 19057843, 9053828, 0549930 #### [facility] [address] [place] [address] Eosinophils/100 WBC (Bld) 3.1 % Normal 0.0-8.0 [facility] Comment on above: Order Comment: Order Added by Discern Expert. Performed By: #### 2 302534, 7186661, 37257111, 4311030, 77222196, 3650833, 5953698, 9748114, 7433724, 8685963, 6003374, 0083633, 68072632, 1249733, 1021693 #### [facility] [address] [place] [address] Eosinophils/Leukocytes Auto Pure number fraction (Bld) 0.2 E9/L Normal 0.0-0.5 [facility] Comment on above: Order Comment: Order Added by Discern Expert. Performed By: #### 2 840126, 3540425, 50631972, 4252910, 66727449, 5251627, 2364800, 2033639, 0619698, 8309791, 9038302, 6978616, 45033575, 6790007, 6928616 #### [facility] [address] [place] [address] Lymphocytes/100 WBC (Bld) 21.1 % Normal 14.0-50.0 [facility] Comment on above: Order Comment: Order Added by Discern Expert. Performed By: #### 2 734251, 8435071, 57912125, 1674176, 71401696, 4815210, 7562004, 1597873, 8987743, 9568996, 9582191, 0806599, 50218798, 4137688, 0969262 #### [facility] [address] [place] [address] Lymphocytes/Leukocytes Auto Pure number fraction (Bld) 1.1 E9/L Normal 1.0-4.0 [facility] Comment on above: Order Comment: Order Added by Discern Expert. Performed By: #### 2 031006, 2367906, 64094686, 3526702, 25168724, 4319137, 3922432, 1758065, 7819883, 3732898, 8379682, 7868917, 14374411, 6547163, 9958048 #### [facility] [address] [place] [address] Monocytes/100 WBC (Bld) 8.0 % Normal 4.0-14.0 [facility] Comment on above: Order Comment: Order Added by Discern Expert. Performed By: #### 2 174905, 2599519, 49003910, 8852828, 70272655, 7197684, 3602752, 0507524, 4357653, 9345728, 4217032, 9388470, 11451938, 5157955, 3438463 #### [facility] [address] [place] [address] Monocytes/Leukocytes Auto Pure number fraction (Bld) 0.4 E9/L Normal 0.2-1.0 [facility] Comment on above: Order Comment: Order Added by Discern Expert. Performed By: #### 2 574033, 2654354, 74377837, 9819268, 68873469, 7902084, 9794715, 6919184, 7181089, 3639248, 6080873, 3654562, 79848007, 5560369, 1169534 #### [facility] [address] [place] [address] Neutrophils/100 WBC (Bld) 67.1 % Normal 36.0-75.0 [facility] Comment on above: Order Comment: Order Added by Discern Expert. Performed By: #### 2 331407, 8371601, 47463094, 2626372, 32737504, 5330039, 5632335, 4438356, 1021528, 7197552, 1865745, 0973725, 53812440, 0484043, 7437694 #### [facility] [address] [place] [address] Neutrophils/Leukocytes Auto Pure number fraction (Bld) 3.5 E9/L Normal 2.0-7.5 [facility] Comment on above: Order Comment: Order Added by Discern Expert. Performed By: #### 2 797869, 7035332, 89993672, 7261628, 80005079, 3898440, 7266912, 0899948, 1889651, 5211866, 4083498, 2134423, 10766288, 6821852, 9073021 #### [facility] [address] [place] [address] CBC w/ Auto Diffon 8 Erythrocyte distribution width Ratio (RBC) 14.0 % Normal 10.9-14.2 [facility] Comment on above: Performed By: #### 2 477945, 4433888, 74093481, 4748516, 04484559, 9199605, 4424826, 4844024, 8803748, 9923891, 6386019, 0669479, 38516422, 3787371, 2572268 #### [facility] [address] [place] [address] Hematocrit Volume Fraction (Bld) 37.7 % Normal 34.0-46.0 [facility] Comment on above: Performed By: #### 2 241334, 5947907, 24381112, 5504293, 12309209, 2200958, 0497568, 4991502, 8141399, 2841246, 3308047, 2349444, 97298615, 2834874, 0960599 #### [facility] [address] [place] [address] Hemoglobin mass conc (Bld) 12.7 g/dL Normal 12.0-16.0 [facility] Comment on above: Performed By: #### 2 584802, 7279406, 43621791, 2154552, 50297331, 3507354, 7931785, 2670139, 3681133, 9326713, 2740609, 7471076, 69754191, 7858214, 6832776 #### [facility] [address] [place] [address] MCH Entitic mass (RBC) 31.5 pg Normal 27.0-34.0 [facility] Comment on above: Performed By: #### 2 515777, 9334251, 23329032, 1413964, 06423717, 3534106, 9253490, 5871796, 3560298, 7488277, 6571234, 4408646, 82058973, 3942585, 5772981 #### [facility] [address] [place] [address] MCHC mass conc (RBC) 33.8 g/dL Normal 31.4-39.3 [facility] Comment on above: Performed By: #### 2 531489, 1370756, 32814739, 0084993, 36955847, 6882628, 3189834, 7356560, 6043447, 0829371, 7715179, 9515401, 19418354, 2872767, 7322488 #### [facility] [address] [place] [address] MCV Entitic volume (RBC) 93.1 fL Normal 80.0-100.0 [facility] Comment on above: Performed By: #### 2 118648, 7621352, 84462582, 3430527, 65166667, 4331593, 5301759, 1247524, 6495529, 6034121, 7207599, 2110791, 32257323, 9179492, 2463154 #### [facility] [address] [place] [address] Platelet mean volume Entitic volume (Bld) 7.5 fL Normal 6.4-10.8 [facility] Comment on above: Performed By: #### 2 649150, 8028487, 81812282, 5217364, 72651724, 3121273, 1253101, 1309794, 6229758, 8031858, 5100223, 9342190, 62032739, 9028557, 7880165 #### [facility] [address] [place] [address] Platelets #/vol (Bld) 229.0 E9/L Normal 150.0-500.0 [facility] Comment on above: Performed By: #### 2 587027, 5940915, 95064799, 3996536, 51572330, 3530793, 8518997, 8869467, 8106292, 2814361, 4847207, 6801136, 58532791, 7611959, 2273238 #### [facility] [address] [place] [address] RBC #/vol (Bld) 4.0 E12/L Low 4.3-5.9 [facility] Comment on above: Performed By: #### 2 091769, 7816732, 90569829, 8796124, 70028599, 4100733, 7989251, 3635806, 8524572, 7542410, 8383318, 4200670, 77522918, 3049591, 0518148 #### [facility] [address] [place] [address] WBC corrected for nucl RBC Auto #/vol (Bld) 5.2 E9/L Normal 4.0-11.0 [facility] Comment on above: Performed By: #### 2 706607, 9058299, 46440938, 5175971, 52277769, 5068811, 1136731, 3715940, 4180867, 0423764, 1080249, 0376282, 74014345, 1897378, 0071413 #### [facility] [address] [place] [address] CMPon 09-11-2017 Albumin mass conc 1.4 g/dL Normal 1.1-2.2 [facility] Comment on above: Performed By: #### 2 705942, 3846978, 48387725, 0471361, 31214008, 4054632, 5354293, 4766084, 1931196, 4681976, 6233061, 7587082, 20579979, 1724442, 0150128 #### [facility] [address] [place] [address] Albumin mass conc 4.2 g/dL Normal 3.3-5.0 [facility] Comment on above: Performed By: #### 2 662921, 3144186, 19909308, 0803164, 94304443, 7001962, 3433751, 0092923, 8642872, 4674364, 3676271, 0729902, 90483340, 6259027, 0167396 #### [facility] [address] [place] [address] ALP enzyme act/vol 105 Int._Unit/L High 21-98 [facility] Comment on above: Performed By: #### 2 248088, 9530452, 54662610, 3428912, 76691110, 7352359, 5014670, 4818422, 2259090, 4776481, 7882478, 4426349, 37718966, 3656403, 9473179 #### [facility] [address] [place] [address] ALT No additional P-5'-P enzyme act/vol 18 Int._Unit/L Normal 6-46 [facility] Comment on above: Performed By: #### 2 420341, 3128119, 71009470, 1261922, 61089591, 3038632, 9790995, 8101417, 6501642, 0895157, 7273854, 4811164, 96421419, 9627693, 9622643 #### [facility] [address] [place] [address] Anion gap molar conc 11 mmol/L Normal 6-16 [facility] Comment on above: Performed By: #### 2 674324, 2903482, 91765757, 2130764, 33724675, 3646030, 5761261, 3327554, 5796346, 6947378, 0296699, 7489011, 95576241, 6990620, 1085716 #### [facility] [address] [place] [address] AST enzyme act/vol 26 Int._Unit/L Normal 5-43 [facility] Comment on above: Performed By: #### 2 858752, 1292308, 77796985, 4628395, 15875773, 5716849, 2458135, 4266113, 0639048, 6857870, 4412760, 3114706, 91672779, 7309054, 4818113 #### [facility] [address] [place] [address] Bilirubin mass conc 0.5 mg/dL Normal 0.0-1.1 [facility] Comment on above: Performed By: #### 2 741584, 5851639, 41855092, 1490376, 77439832, 3146508, 4348349, 5078142, 0542636, 6430027, 9370025, 8648488, 33500534, 1252667, 1273959 #### [facility] [address] [place] [address] Calcium mass conc 9.7 mg/dL Normal 8.9-11.1 [facility] Comment on above: Performed By: #### 2 807358, 3943600, 63946162, 3545276, 07137383, 1238576, 0909009, 2040790, 1156480, 8506582, 3296464, 0246068, 50902254, 0773937, 0990851 #### [facility] [address] [place] [address] Chloride molar conc 107 mmol/L Normal 101-111 [facility] Comment on above: Performed By: #### 2 732226, 2851179, 24333162, 3466398, 26395422, 4548930, 5709584, 5761432, 2032261, 2734324, 3962456, 7067424, 03887512, 9470829, 4954928 #### [facility] [address] [place] [address] CO2 molar conc 26 mmol/L Normal 21-31 [facility] Comment on above: Performed By: #### 2 028231, 4238388, 51359051, 7724974, 78482448, 4861513, 2033991, 7099191, 8796579, 9048241, 7609821, 8390855, 96901026, 1816809, 0467032 #### [facility] [address] [place] [address] Creatinine mass conc 0.6 mg/dL Normal 0.5-1.3 [facility] Comment on above: Performed By: #### 2 148513, 1057476, 27805098, 4158704, 76069004, 3562589, 7410659, 0144978, 7444408, 7979733, 5849710, 6794075, 63438446, 0756825, 7179165 #### [facility] [address] [place] [address] Globulin mass conc (S) 2.9 g/dL Normal 1.4-4.0 [facility] Comment on above: Performed By: #### 2 456026, 5554977, 53743606, 7367703, 80941304, 3317619, 6599715, 4517075, 4175587, 4363281, 5588680, 0914491, 67698755, 3347878, 9876217 #### [facility] [address] [place] [address] Glucose mass conc 88 mg/dL Normal 55-199 [facility] Comment on above: Result Comment: If t his glucose result represents a fasting glucose, interpretation should refer to the following reference range: 55-99 mg/dL Performed By: #### 2 878296, 2527746, 45023193, 1913408, 81806325, 7943109, 4573244, 5978253, 5607051, 9096589, 4142313, 7993628, 13893961, 9710821, 3690970 #### [facility] [address] [place] [address] Potassium molar conc 5.6 mmol/L High 3.5-5.3 [facility] Comment on above: Performed By: #### 2 705812, 1117019, 97896038, 4185131, 05268963, 4907966, 6162634, 6998692, 2599835, 3123366, 3365414, 8264086, 69982545, 0268815, 4976855 #### [facility] [address] [place] [address] Protein mass conc 7.1 g/dL Normal 6.0-7.8 [facility] Comment on above: Performed By: #### 2 237450, 1578691, 78756250, 5119258, 42574549, 9432361, 6602058, 5431922, 9914720, 5245689, 3901771, 9054727, 55967406, 9891071, 3239128 #### [facility] [address] [place] [address] Sodium molar conc 138 mmol/L Normal 135-145 [facility] Comment on above: Performed By: #### 2 169026, 3750177, 62466203, 3818035, 28664904, 1902636, 9295521, 2789335, 7003465, 7957780, 2345435, 9126786, 36303603, 7671302, 7773797 #### [facility] [address] [place] [address] Urea nitrogen mass conc 15 mg/dL Normal 5-21 [facility] Comment on above: Performed By: #### 2 531871, 6759226, 92010695, 5120189, 22693435, 7723214, 1691667, 3169450, 6419846, 9429682, 3565375, 6101869, 15104873, 8151753, 8850687 #### [facility] [address] [place] [address] Urea nitrogen/Creatinine mass ratio 25 No Units High - [facility] Comment on above: Performed By: #### 2 957802, 1752872, 39108751, 8632584, 75762396, 8382091, 5719123, 9822879, 4295707, 8778071, 3643783, 3164170, 17515951, 8128992, 6134170 #### [facility] [address] [place] [address] CRPon 09-11-2017 CRP mass conc mg/L Normal <=1.9 [facility] Comment on above: Performed By: #### 2 278124, 7671707, 95965982, 0349635, 86623390, 5048676, 8375560, 1832784, 5169845, 1229347, 8759268, 4552805, 70997816, 1929299, 6242356 #### [facility] [address] [place] [address] Free T4on 09-11-2017 T4 free mass conc 0.57 ng/dL Low 0.58-1.64 [facility] Comment on above: Performed By: #### 2 480691, 2093469, 80223804, 4191432, 04756882, 0079210, 2473849, 4818741, 7623231, 3194222, 5685343, 5960773, 09787811, 2747869, 9666456 #### [facility] [address] [place] [address] Lipid Panelon 09-11-2017 Cholesterol in HDL mass conc 126 mg/dL [facility] Comment on above: Result Comment: HDL > or equal to 60 mg/dL: Low cardiovascular risk HDL < 40 mg/dL : High cardiovascular risk Performed By: #### 2 903876, 2637343, 25282307, 9641080, 21424558, 4190380, 3619828, 8770841, 1463519, 5712039, 4921897, 7400196, 34786571, 7033548, 9598214 #### [facility] [address] [place] [address] Cholesterol in LDL mass conc 76 mg/dL Normal <=129 [facility] Comment on above: Performed By: #### 2 371129, 5740861, 44598167, 6090320, 68447046, 8936463, 9290240, 4318012, 9676079, 4442897, 1800901, 3321354, 29987141, 1242331, 2867809 #### [facility] [address] [place] [address] Cholesterol in VLDL mass conc 12 mg/dL Normal 7-40 [facility] Comment on above: Performed By: #### 2 085096, 9943356, 79272489, 3290160, 54000681, 3972688, 8509927, 4718222, 1940313, 3364646, 3110598, 2287204, 03462081, 7056574, 3214467 #### [facility] [address] [place] [address] Cholesterol mass conc 225 mg/dL High 120-200 [facility] Comment on above: Performed By: #### 2 754551, 2677183, 65138435, 0092186, 45532778, 8244841, 1473478, 3769272, 1980217, 8002765, 7893999, 1913857, 03338837, 6638660, 6028695 #### [facility] [address] [place] [address] Triglyceride mass conc 61 mg/dL Normal <=149 [facility] Comment on above: Performed By: #### 2 312208, 1319667, 92990980, 6568961, 10007911, 6876548, 8092934, 2768820, 1563703, 0810097, 9515843, 7142059, 30256399, 3723628, 4383301 #### [facility] [address] [place] [address] Progesteroneon 09-11-2017 Progesterone mass conc 0.30 ng/mL [facility] Comment on above: Result Comment: REFE RENCE RANGE Males 0.14-2.06 ng/mL Non- Females Follicular 0.10-0.60 ng/mL Luteal 3.00-17.5 ng/mL Midluteal 3.30-18.6 ng/mL Post-Menopausal 0.10-0.40 ng/mL First Trimester 8.30-66.5 ng/mL Second Trimester 18.9-66.1 ng/mL Third Trimester 35.8-312.4 ng/mL Performed By: #### 2 191543, 2604597, 52944741, 5217501, 70388398, 7257250, 5108397, 4815958, 8958168, 0605330, 9502265, 2957472, 43056832, 9566718, 0286479 #### [facility] [address] [place] [address] Sed Rate Automatedon 018 ESR Velocity (Bld) 13 mm/h Normal 0-34 [facility] Comment on above: Performed By: #### 2 331263, 5209220, 75260294, 2998070, 70819470, 7508592, 2280712, 0383587, 7944315, 7968814, 4555934, 8668044, 87359228, 4961787, 1434495 #### [facility] [address] [place] [address] TSHon 09-11-2017 Thyrotropin Qn 5.15 mcIU/mL Normal 0.34-5.60 [facility] Comment on above: Performed By: #### 2 317938, 8940257, 20897969, 3040520, 75298114, 3977973, 4247323, 8213809, 5462397, 7362965, 8892412, 7773149, 90650117, 4954269, 3855726 #### [facility] [address] [place] [address] Uric Acidon 09-11-2017 Urate mass conc 5.4 mg/dL Normal 2.2-7.4 [facility] Comment on above: Performed By: #### 2 794655, 1826634, 64122972, 4349709, 84994195, 8579177, 5745728, 7860243, 9786084, 8061878, 7443267, 2561084, 85159802, 9027945, 1188165 #### [facility] [address] [place] [address] eGFRon 09-11-2017 GFR/1.73 sq M predicted among blacks MDRD vol rate/area (S/P/Bld) mL/min/{1.73_m2} Normal >=59 [facility] Comment on above: Order Comment: Order added by Discern Expert. Result Comment: eGFR is race adjusted. AA=. Performed By: #### 2 919677, 2330885, 46132928, 0512011, 03759519, 9262943, 3571831, 5455359, 8735027, 0360682, 2478480, 9510291, 97134595, 5706647, 2299888 #### [facility] [address] [place] [address] GFR/1.73 sq M predicted among non-blacks MDRD vol rate/area (S/P/Bld) mL/min/{1.73_m2} Normal >=59 [facility] Comment on above: Order Comment: Order added by Discern Expert. Result Comment: [place]er leon kidney disease could be indicated at eGFR's of less than 60 mL/min/1.73m2. Kidney failure is indicated at less than 15 mL/min/1.73m2. Performed By: #### 2 171599, 9159795, 19029429, 2541237, 52329560, 0754684, 1305323, 9643217, 1607341, 1514113, 2646017, 9207629, 77077717, 3371913, 2186913 #### [facility] [address] [place] [address] Encounters Encounter Date Encounter Type Care Provider Facility Start: 01-10-2024 End: 01-10-2024 ambulatory CHEMA AICHHOLZ Not Available Start: 10-10-2023 End: 10-10-2023 ambulatory CHEMA AICHHOLZ Not Available Start: 07-10-2023 End: 07-10-2023 ambulatory CHEMA AICHHOLZ Not Available Start: 03-30-2022 End: 03-31-[address] DAVID MADRID Facility:[facility] Start: 02-27-2022 End: 02-28-2022 ambulatory PERNELL CHEMA AICHHOLZ Facility:[facility] Start: 08-09-2018 End: 08-10-2018 Patient encounter procedure Charli Laurent [place] Start: 10-30-2017 End: 11-05-2017 Evaluation and management of inpatient PAUL V INDURTI [facility] Start: 09-11-2017 End: 09-12-2017 Patient encounter procedure Manav Lo [place] Procedures Date Procedure Procedure Detail Performing Clinician Start: 11-05-2017 DISCHARGE PATIENT SREEK ANTH INDURTI Start: 11-02-2017 DIET GENERAL PAUL INDURTI Start: 11-02-2017 WOUND CARE PAUL INDURTI Start: 11-02-2017 FUNGUS CULTURE SREEKANT H INDURTI Start: 11-02-2017 ANAEROBIC AND AEROBIC CULTURE PAUL INDURTI Start: 11-02-2017 TRANSFER PATIENT SREEKA NTH INDURTI Start: 11-02-2017 PLACE INTERMITTENT P NEUMATIC COMPRESSION DEVICE PAUL INDURTI Start: 11-02-2017 APTT PAUL INDURTI Start: 11-02-2017 CBC PAUL INDURTI Start: 11-02-2017 PROTIME-INR PAUL INDURTI Start: 11-01-2017 Radex hand 2 views AUSTIN ARON INDURTI Start: 11-01-2017 IP CONSULT TO PEDIAT TARIQ SURGERY PAUL INDURTI Start: 11-01-2017 PATIENT STATUS (DIRECT) PAUL INDURTI Start: 11-01-2017 Lipid panel PAUL INDURTI Start: 10-31-2017 DIETARY NUTRITION SUPPLEMENTS PAUL INDURTI Start: 10-31-2017 EKG 12-LEAD PAUL INDURTI Start: 10-31-2017 CBC WITH AUTO DIFFERENTIAL PAUL INDURTI Start: 10-31-2017 COMPREHENSIVE METABOLIC PANEL PAUL INDURTI Start: 10-31-2017 Lipid panel PAUL INDURTI Start: 10-31-2017 T3 PAUL INDURTI Start: 10-31-2017 T4 PAUL INDURTI Start: 10-31-2017 TSH WITHOUT REFLEX AUSTIN ARON INDURTI Start: 10-30-2017 FULL CODE PAUL INDURTI Start: 10-30-2017 URINE DRUG SCREEN SREEK ANTH INDURTI Start: 10-30-2017 IP CONSULT TO HISTOR Y AND PHYSICAL PAUL INDURTI Payers Date Payer Category Payer Medicare [id number] 1960 Medicare [id number] 1960 Unknown [id number] 2.16.84 [id number] 1960 Unknown [id number] 2.16.84 [id number] 1959 Unknown [id number] 2.16.84 [id number] 1959 Unknown [id number] 2.16.84 [id number] 1959 Unknown [id number] 2.16.84 [id number] 1959 Unknown [id number] 2.16.84 [id number] 1959 Unknown [id number] 2.16.840 .[id number] Summary Purpose Family History No Family History Records FoundNo Family History Records FoundNo Family History Records FoundNo Family History Records Found Advance Directives No Advanced Directives Records FoundNo Advanced Directives Records FoundNo Advanced Directives Records FoundNo Advanced Directives Records Found Additional Source Comments INFORMATION SOURCE (unrecogn ized section and content) DATE CREATED AUTHOR 01/09/2018 [facility] DATE CREATED AUTHOR AUTHOR'S ORGANIZ ATION 08/29/2018 [facility] DATE CREATED AUTHOR AUTHOR'S ORGANIZ ATION 11/14/[address] [facility] DATE CREATED AUTHOR AUTHOR'S ORGANIZ ATION 01/11/2024 [facility] FOR RECORDS PERTAINING TO PATIENTS WHO ARE OR HAVE BEEN ENROLLED IN A CHEMICAL DEPENDENCY/SUBSTANCEABUSE PROGRAM, SOME INFORMATION MAY BE OMITTED. This clinical summary was aggregated from multiple sources. Caution should be exercised in using it in the provision of clinical care. This summary normalizes information from multiple sources, and as a consequence, information in this document may materially change the coding, format and clinical context of patient data. In addition, data may be omitted in some cases. CLINICAL DECISIONS SHOULD BE BASED ON THE PRIMARY CLINICAL RECORDS. [employer] provides no warranty or guarantee of the accuracy or completeness of information in this document.
[2024-01-28 09:15] LABS: Basophils Percent Auto 0.5 % (0.2-2.0); Eosinophils Absolute Auto 0.1 10^3/uL (0.0-0.7); Eosinophils Percent Auto 2.6 % (0.9-7.0); Hemoglobin 11.5 g/dL (12.0-16.0); Immature Granulocytes Abs Auto 0.01 10^3/uL (0.00-0.03); Immature Granulocytes Pct Auto 0.3 % (0.0-0.5); Lymphocytes Absolute Auto 1.3 10^3/uL (1.2-3.8); Lymphocytes Percent Auto 34.1 % (20.5-60.0); Mean Corpuscular HGB Conc 32.9 g/dL (29.9-35.2); Mean Corpuscular Hemoglobin 31.4 pg (26.7-34.0); Mean Corpuscular Volume 95.6 fL (81.0-99.0); Mean Platelet Volume 9.5 fL (9.5-13.5); Monocytes Absolute Auto 0.5 10^3/uL (0.3-0.8); Monocytes Percent Auto 12.4 % (1.7-12.0); Neutrophils Absolute Auto 1.9 10^3/uL (1.4-6.5); Neutrophils Percent Auto 50.1 % (43.0-75.0); Platelet Count 114 10^3/uL (150-450); Red Blood Count 3.66 10^6/uL (4.20-5.40); Red Cell Distribution Width 14.8 % (11.0-15.0); White Blood Count 3.9 10^3/uL (4.0-11.0)
[2024-01-28 09:55] LABS: Alanine Aminotransferase 31 U/L (14-59); Albumin Globulin Ratio 1.1; Albumin Level 3.5 g/dL (3.4-5.0); Alkaline Phosphatase 161 U/L (46-116); Anion Gap 18.7; Aspartate Amino Transferase 37 U/L (15-37); BUN Creatinine Ratio 14.8; Bilirubin Total 0.5 mg/dL (0.2-1.0); Calcium 8.8 mg/dL (8.5-10.1); Carbon Dioxide 21.5 mmol/L (21.0-32.0); Chloride 103 mmol/L (98-107); Estimated GFR (African America >60 (>=60); Estimated GFR (Non-African Ame >60 (>=60); Free T3 2.56 pg/mL (2.18-3.98); Globulin 3.3 g/dL; Glucose 103 mg/dL (74-106); Magnesium 1.7 mg/dL (1.8-2.4); Potassium 4.2 mmol/L (3.5-5.1); Sodium 139 mmol/L (136-145); Thyroid Stimulating Hormone 1.891 uIU/mL (0.358-3.740); Total Protein 6.8 g/dL (6.4-8.2)
[2024-01-28 11:01] LABS: Free T4 0.67 ng/dL (0.76-1.46)
== END 2024-01-28 08:45 | disposition home or self-care (01) ==
LOC: LAB 08:46
PROVIDERS: PCP Nurse Practitioner; Visit Provider Nurse Practitioner
DX: D64.89 Other specified anemias (principal); F10.20 Alcohol dependence, uncomplicated; E83.42 Hypomagnesemia
CPT/HCPCS: 36415; 80053; 83735; 84439; 84443; 84481; 85025

== ENCOUNTER 2024-01-29 10:08 | Outpatient (OUT) | payer MEDICARE, SELFPAY | END 2024-01-29 10:09 | disposition home or self-care (01) | LOC: CARD 10:09 | PROVIDERS: PCP Nurse Practitioner; Visit Provider Nurse Practitioner | DX: R42 Dizziness and giddiness (principal); R00.1 Bradycardia, unspecified | CPT/HCPCS: 93246 ==

== ENCOUNTER 2024-03-13 08:17 | Outpatient (OUT) | payer MEDICARE, SELFPAY ==
--- OUTSIDE RECORDS SUMMARY | 2024-03-13 08:23 | XMS_ITS | CCD ---
Author Organization [facility] Care Team Providers Care Synthetic Filament Extruder Name Role Phone INDURTI, PAUL V Unavailable Unavailable INDURTI, PAUL V Unavailable Unavailable CONSUELO, JOYCE Unavailable Unavailable Manav Lo Admitting Unavailable Manav Lo Attending Unavailable Manav Lo Primary Care Unavailable Charli Laurent Admitting Unavailable Charli Laurent Attending Unavailable Charli Laurent Referring Unavailable NONE, XXXX Primary Care Unavailable AICHHOLZ, NURSE CASE MANAGEMENT CHEMA Admitting Unavailable AICHHOLZ, NURSE CASE MANAGEMENT CHEMA Attending Unavailable AICHHOLZ, NURSE CASE MANAGEMENT CHEMA Primary Care Unavailable AICHHOLZ, NURSE CASE MANAGEMENT CHEMA Consulting Unavailable BEDOCS, DR DAVID Alston Admitting Unavailable BEDOCS, DR DAVID Alston Attending Unavailable AICHHOLZ, NURSE CASE MANAGEMENT CHEMA Primary Care Unavailable BEDOCS, DR DAVID Alston Consulting Unavailable AICHHOLZ, CHEMA Attending Unavailable AICHHOLZ, CHEMA Attending Unavailable AICHHOLZ, CHEMA Attending Unavailable Allergies Allergy Classification Reported Allergen(s) Allergy Type Date of Onset Reaction(s) Facility (1 source) Clindamycin Drug Allergy 02-27-2014 [facility] Repository (1 source) Penicillins Drug allergy (disorder) [facility] Problems Problem Classification Problem Date Documented [...] PLUSon 0 04-01-2022 QuantiFERON Criteria Comment Normal [facility] Comment on above: Result Comment: Juan tiFERON-TB [...] test. Performed By: #### Q NTTB #### [facility] [address] [place] [address] Dr. Jewel Rascon QuantiFERON Incubation Incubation performed. Normal [facility] Comment on above: Performed By: #### Q NTTB #### [facility] [address] [place] [address] Dr. Jewel Rascon QuantiFERON Mitogen Value >10.00 Normal [facility] Comment on above: Performed By: #### Q NTTB #### [facility] [address] [place] [address] Dr. Jewel Rascon QuantiFERON Nil Value 0.03 IU/mL Normal [facility] Comment on above: Performed By: #### Q NTTB #### [facility] [address] [place] [address] Dr. Jewel Rascon QuantiFERON TB1 Ag Value 0.09 IU/mL Normal [facility] Comment on above: Performed By: #### Q NTTB #### [facility] [address] [place] [address] Dr. Jewel Rascon QuantiFERON TB2 Ag Value 0.08 IU/mL Normal [facility] Comment on above: Performed By: #### Q NTTB #### [facility] [address] [place] [address] Dr. Jewel Rascon QuantiFERON-TB Gold Plus Negative Normal Negative [facility] Comment on above: Result Comment: No r esponse to M tuberculosis antigens detected. Infection with M tuberculosis is unlikely, but high risk individuals should be considered for additional testing (ATS/IDSA/CDC Clinical Practice Guidelines, 2017). The reference range is an Antigen minus Nil result of <0.35 IU/mL. Chemiluminescence immunoassay methodology Performed By: #### Q NTTB #### [facility] [address] [place] [address] Dr. Jewel Rascon HEP B COREon 03-31-2022 Hep B Core Ab, Tot Negative Normal Negative [facility] Comment on above: Performed By: #### H BCORE #### [facility] [address] [place] [address] Dr. Jewel Rascon HEP B SURFACE ANTIGEN SCREEN on 03-31-2022 HBsAg Screen Negative Normal Negative [facility] Comment on above: Performed By: #### H EPBSRF #### [facility] [address] [place] [address] Dr. Jewel Rascon HEPATITIS B SURFACE ANTIBODY , QUANTon 03-31-2022 Hepatitis B Surf AB Quant <3.1 Critically low Immunity>9. 9 [facility] Comment on above: Result Comment: Stat us of Immunity Anti-HBs Level Inconsistent with Immunity 0.0 - 9.9 Consistent with Immunity >9.9 Performed By: #### H EPBSRF #### [facility] [address] [place] [address] Dr. Jewel Rascon HEPATITIS C ANTIBODYon 03-31 Hep C Virus Ab <0.1 Normal 0.0-0.9 [facility] Comment on above: Result Comment: Nega tive: [...] Hepatitis C Virus (HCV) RNA, Diagnosis, MEGHAN ([id number]) and Hepatitis C Virus (HCV) Antibody with reflex to Quantitative Real-time PCR ([id number]). Performed By: #### H CV #### [facility] [address] [address] [address] Jewel Rascon CBC AUTO DIFFon 03-30-2022 BASO # 0.0 103/ul Normal 0.0-0.1 [facility] Comment on above: Performed By: #### C BC #### [facility] [address] [address] [address] Jewel Rascon Basophils/100 WBC (Bld) 0.8 % Normal 0.2-2.0 [facility] Comment on above: Performed By: #### C BC #### [facility] [address] [place] [address] Dr. Jewel Rascon EO # 0.2 103/ul Normal 0.0-0.7 [facility] Comment on above: Performed By: #### C BC #### [facility] [address] [place] [address] Dr. Jewel Rascon Eosinophils/100 WBC (Bld) 3.0 % Normal 0.9-7.0 [facility] Comment on above: Performed By: #### C BC #### [facility] [address] [place] [address] Dr. Jewel Rascon Erythrocyte distribution width (RBC) [Ratio] 13.3 % Normal 11.0-15.0 [facility] Comment on above: Performed By: #### C BC #### [facility] [address] [place] [address] Dr. Jewel Rascon Hematocrit (Bld) [Volume fraction] 35.8 % Critically low 36.0-48.0 [facility] Comment on above: Performed By: #### C BC #### [facility] [address] [place] [address] Dr. Jewel Rascon Hemoglobin (Bld) [Mass/Vol] 11.6 g/dL Critically low 12.0-16.0 [facility] Comment on above: Performed By: #### C BC #### [facility] [address] [place] [address] Dr. Jewel Rascon IG # 0.02 10e3/ul Normal 0.00-0.03 [facility] Comment on above: Performed By: #### C BC #### [facility] [address] [place] [address] Dr. Jewel Rascon IG % 0.4 % Normal 0.0-0.5 [facility] Comment on above: Performed By: #### C BC #### [facility] [address] [place] [address] Dr. Jewel Rascon LYMPH # 1.7 103/ul Normal 1.2-3.8 [facility] Comment on above: Performed By: #### C BC #### [facility] [address] [place] [address] Dr. Jewel Rascon Lymphocytes/100 WBC (Bld) 32.2 % Normal 20.5-60.0 [facility] Comment on above: Performed By: #### C BC #### [facility] [address] [place] [address] Dr. Jewel Rascon MANUAL DIFF REQ NO Normal [facility] Comment on above: Performed By: #### C BC #### [facility] [address] [place] [address] Dr. Jewel Rascon MCH (RBC) [Entitic mass] 29.4 pg Normal 26.7-34.0 [facility] Comment on above: Performed By: #### C BC #### [facility] [address] [place] [address] Dr. Jewel Rascon MCHC (RBC) [Mass/Vol] 32.4 g/dL Normal 29.9-35.2 [facility] Comment on above: Performed By: #### C BC #### [facility] [address] [place] [address] Dr. Jewel Rascon MCV (RBC) [Entitic vol] 90.9 fL Normal 81.0-99.0 [facility] Comment on above: Performed By: #### C BC #### [facility] [address] [place] [address] Dr. Jewel Rascon MONO # 0.5 103/ul Normal 0.3-0.8 [facility] Comment on above: Performed By: #### C BC #### [facility] [address] [address] [address] Jewel Rascon Monocytes/100 WBC (Bld) 9.3 % Normal 1.7-12.0 [facility] Comment on above: Performed By: #### C BC #### [facility] [address] [address] [address] Jewel Rascon NEUT # 2.9 103/ul Normal 1.4-6.5 [facility] Comment on above: Performed By: #### C BC #### [facility] [address] [place] [address] Dr. Jewel Rascon Neutrophils/100 WBC (Bld) 54.3 % Normal 43.0-75.0 [facility] Comment on above: Performed By: #### C BC #### [facility] [address] [place] [address] Dr. Jewel Rascon Platelet mean volume (Bld) [Entitic vol] 9.6 fL Normal 9.5-13.5 [facility] Comment on above: Performed By: #### C BC #### [facility] [address] [place] [address] Dr. Jewel Rascon PLT 186 103/ul Normal 150-450 [facility] Comment on above: Performed By: #### C BC #### [facility] [address] [place] [address] Dr. Jewel Rascon RBC 3.94 106/ul Critically low 4.20-5.40 [facility] Comment on above: Performed By: #### C BC #### [facility] [address] [place] [address] Dr. Jewel Rascon WBC 5.3 103/ul Normal 4.0-11.0 [facility] Comment on above: Performed By: #### C BC #### [facility] [address] [place] [address] Dr. Jewel Rascon LIPID PROFILEon 03-30-2022 CHOL-HDL RATIO NORM SEE BELOW Normal [facility] Comment on above: Result Comment: 3.3 - 4.4 LOW RISK 4.4 - 7.1 AVERAGE RISK 7.1 - 11.0 MODERATE RISK >11.0 HIGH RISK Performed By: #### L IPID, LIVER, BMP #### [facility] [address] [place] [address] Dr. Jewel Rascon Cholesterol [Mass/Vol] 192 mg/dL Normal <=200 Th [facility] Comment on above: Performed By: #### L IPID, LIVER, BMP #### [facility] [address] [place] [address] Dr. Jewel Rascon Cholesterol in HDL [Mass/Vol] 57 mg/dL Normal 40-60 [facility] Comment on above: Performed By: #### L IPID, LIVER, BMP #### [facility] [address] [place] [address] Dr. Jewel Rascon Cholesterol in LDL [Mass/Vol] 82.2 mg/dL Normal [facility] Comment on above: Performed By: #### L IPID, LIVER, BMP #### [facility] [address] [place] [address] Dr. Jewel Rascon Cholesterol.total/Choles terol in HDL [Mass ratio] 3.4 {ratio} Normal [facility] Comment on above: Performed By: #### L IPID, LIVER, BMP #### [facility] [address] [place] [address] Dr. Jewel Rascon HDL NORMAL > or = 60 mg/dl - LO W CARDIOVASCULAR RISK <40 mg/dl - HIGH CARDIOVASCULAR RISK Normal [facility] Comment on above: Performed By: #### L IPID, LIVER, BMP #### [facility] [address] [place] [address] Dr. Jewel Rascon LDL CALC NORMAL SEE BELOW Normal [facility] Comment on above: Result Comment: <100 mg/dl OPTIMAL 100 - 129 mg/dl NEAR OR ABOVE OPTIMAL 130 - 159 mg/dl BORDERLINE HIGH 160 - 189 mg/dl HIGH >190 mg/dl VERY HIGH Performed By: #### L IPID, LIVER, BMP #### [facility] [address] [place] [address] Dr. Jewel Rascon Triglyceride [Mass/Vol] 264 mg/dL Critically high <=150 [facility] Comment on above: Performed By: #### L IPID, LIVER, BMP #### [facility] [address] [address] [address] Jewel Rascon VLDL CALC 52.8 mg/dL Normal [facility] Comment on above: Performed By: #### L IPID, LIVER, BMP #### [facility] [address] [place] [address] Dr. Jewel Rascon LIVER PROFILEon 03-30-2022 Albumin [Mass/Vol] 3.9 g/dL Normal 3.4-5.0 [facility] Comment on above: Performed By: #### L IPID, LIVER, BMP #### [facility] [address] [place] [address] Dr. Jewel Rascon Albumin/Globulin [Mass ratio] 1.1 {ratio} Normal [facility] Comment on above: Performed By: #### L IPID, LIVER, BMP #### [facility] [address] [place] [address] Dr. Jewel Rascon ALP [Catalytic activity/Vol] 150 U/L Critically high 46-116 [facility] Comment on above: Performed By: #### L IPID, LIVER, BMP #### [facility] [address] [place] [address] Dr. Jewel Rascon ALT [Catalytic activity/Vol] 31 U/L Normal 14-59 [facility] Comment on above: Performed By: #### L IPID, LIVER, BMP #### [facility] [address] [place] [address] Dr. Jewel Rascon AST [Catalytic activity/Vol] 27 U/L Normal 15-37 [facility] Comment on above: Performed By: #### L IPID, LIVER, BMP #### [facility] [address] [place] [address] Dr. Jewel Rascon BILI, CONJUGATED 0.1 mg/dL Normal 0.0-0.2 [facility] Comment on above: Performed By: #### L IPID, LIVER, BMP #### [facility] [address] [place] [address] Dr. Jewel Rascon Bilirubin [Mass/Vol] 0.2 mg/dL Normal 0.2-1.0 [facility] Comment on above: Performed By: #### L IPID, LIVER, BMP #### [facility] [address] [address] [address] Jewel Rascon Globulin (S) [Mass/Vol] 3.6 g/dL Normal [facility] Comment on above: Performed By: #### L IPID, LIVER, BMP #### [facility] [address] [address] [address] Jewel Rascon Protein [Mass/Vol] 7.5 g/dL Normal 6.4-8.2 [facility] Comment on above: Performed By: #### L IPID, LIVER, BMP #### [facility] [address] [place] [address] Dr. Jewel Rascon PROF CHEM 8 (BAS METB)on Anion gap [Moles/Vol] 16.7 mmol/L Normal [facility] Comment on above: Performed By: #### L IPID, LIVER, BMP #### [facility] [address] [address] [address] Jewel Rascon Calcium [Mass/Vol] 9.4 mg/dL Normal 8.5-10.1 [facility] Comment on above: Performed By: #### L IPID, LIVER, BMP #### [facility] [address] [address] [address] Jewel Rascon Chloride [Moles/Vol] 108 mmol/L Critically high 98-107 [facility] Comment on above: Performed By: #### L IPID, LIVER, BMP #### [facility] [address] [address] [address] Jewel Rascon CO2 [Moles/Vol] 20.5 mmol/L Critically low 21.0-32.0 [facility] Comment on above: Performed By: #### L IPID, LIVER, BMP #### [facility] [address] [address] [address] Jewel Rascon Creatinine [Mass/Vol] 1.09 mg/dL Critically high 0.55-1.02 [facility] Comment on above: Performed By: #### L IPID, LIVER, BMP #### [facility] [address] [address] [address] Jewel Rascon EGFR-AF UZBEK >60 Normal >=60 [facility] Comment on above: Performed By: #### L IPID, LIVER, BMP #### [facility] [address] [address] [address] Jewel Rascon EGFR-NON AF UZBEK 51 mL/min/1.73m2 Critically low >=60 [facility] Comment on above: Performed By: #### L IPID, LIVER, BMP #### [facility] [address] [place] [address] Dr. Jewel Rascon Glucose [Mass/Vol] 108 mg/dL Critically high 74-106 [facility] Comment on above: Performed By: #### L IPID, LIVER, BMP #### [facility] [address] [place] [address] Dr. Jewel Rascon Potassium [Moles/Vol] 4.2 mmol/L Normal 3.5-5.1 [facility] Comment on above: Performed By: #### L IPID, LIVER, BMP #### [facility] [address] [place] [address] Dr. Jewel Rascon Sodium [Moles/Vol] 141 mmol/L Normal 136-145 [facility] Comment on above: Performed By: #### L IPID, LIVER, BMP #### [facility] [address] [place] [address] Dr. Jewel Rascon Urea nitrogen [Mass/Vol] 14.0 mg/dL Normal 7.0-18.0 [facility] Comment on above: Performed By: #### L IPID, LIVER, BMP #### [facility] [address] [place] [address] Dr. Jewel Rascon Urea nitrogen/Creatinine [Mass ratio] 12.8 mg/mg Normal [facility] Comment on above: Performed By: #### L IPID, LIVER, BMP #### [facility] [address] [place] [address] Dr. Jewel Rascon VIT D 25-OH LABCORPon 2021 Vitamin D, 25-Hydroxy 50.9 ng/mL Normal 30.0-100.0 [facility] Comment on above: Result Comment: Stefanie min D deficiency has been defined by the [place] of [employer] and an Endocrine Society practice guideline as a level of serum 25-OH vitamin D less than 20 ng/mL (1,2). The Endocrine Society went on to further define vitamin D insufficiency as a level between 21 and 29 ng/mL (2). 1. IOM ([place] [employer]). 2010. Dietary reference intakes for calcium and D. [place]: The National Academies Press. 2. Lety MF, Vipin [place], Elke TERESA, et al. Evaluation, treatment, and prevention of vitamin D deficiency: an Endocrine Society clinical practice guideline. JCEM. 2010; 96(7):1911-30. Performed By: #### V ITADLC #### [facility] [address] [address] [address] Jewel Rascon FREE T4on 02-27-2022 Free T4 [Mass/Vol] 0.80 ng/dL Normal 0.76-1.46 [facility] Comment on above: Performed By: #### F T4 #### [facility] [address] [place] [address] Dr. Jewel Rascon TSHon 02-27-2022 TSH 2.639 uIU/mL Normal 0.358-3.740 [facility] Comment on above: Performed By: #### H EPBSRF #### [facility] [address] [address] [address] Jewel Rascon URIC ACID SERUMon 02-27-2022 Urate [Mass/Vol] 8.7 mg/dL Critically high 2.6-6.0 [facility] Comment on above: Performed By: #### H EPBSRF #### [facility] [address] [place] [address] Dr. Jewel Rascon Coding Summary.on 08-17-2018 Coding Summary. CODING DATE: 019 [facility] STATUS: Home (Routine DC) PAYOR: Medicare APC [...] Stokes CphT Date Saved: 08/17/2018 07:12 am [facility] US LE Venous Duplex Lefton 0 08-10-2018 [...] Bajwa MD Transcribed by: DWIGHT Technologist: ALO [facility] Cult,Funguson 12-03-2017 Cult,Fungus Specimen Description .HAND Performed at [address] [address] Special Requests NOT REPORTEDCulture NO GROWTH 30 DAYS Performed at [address] [address] Report Status FINAL 12/03/2017 [facility] Comment on above: Performed By: #### C DP, CP, TSH, LIPR ####[address] [address] #### T3, T4 ####[address] [address] DISCHARGE SUMMARYon 11-06-19 18 DISCHARGE SUMMARY [address] [address] DISCHARGE SUMMARYPATIENT NAME: ROSENDA ALEXANDER : 1960MED REC NO: [id number] [id number] [id number] ADMIT DATE: 10/30/2017PROVIDER: Paul Buckley DISCH DATE:HISTORY [...] one and she isgoing to go to skilled nursing for it.PAST PSYCHIATRIC HISTORY: History of major [...] The patient is discharged. [facility]PAUL ANNID: 11/04/2017 22:01:58 [id number]_IJob#: [id number] Doc#: [id number]: Normal [facility] Cult,Aerobe/Anaerobeon 11-04 Cult,Aerobe/Anaerobe Specimen Descriptio n .HAND Performed at [address] [address] Special Requests NOT REPORTEDDirect Exam MODERATE NEUTROPHILS FEW GRAM POSITIVE COCCI IN PAIRS Culture METHICILLIN RESISTANT STAPHYLOCOCCUS AUREUS LIGHT GROWTH NO ANAEROBIC ORGANISMS ISOLATED AT 5 DAYS Performed at [address] [address] Report Status FINAL 11/07/2017SUSCEPTIBILITYO rganism MRSAMethod MICPenicillin >=0.5 RESISTANTCefoxitin Screen NOT REPORTEDCiprofloxacin NOT REPORTEDClindamycin <=0.25 SUSCEPTIBLEErythromycin 0.5 SUSCEPTIBLEGentamicin <=0.5 SUSCEPTIBLEInduced Clind Resist NOT REPORTEDLevofloxacin 1 SUSCEPTIBLELinezolid NOT REPORTEDMoxifloxacin NOT REPORTEDNitrofurantoin NOT REPORTEDOxacillin >=4 RESISTANTSynercid NOT REPORTEDRifampin NOT REPORTEDTetracycline <=1 SUSCEPTIBLETigecycline NOT REPORTEDTrimethoprim/Sulf a <=10 SUSCEPTIBLEVancomycin 1 SUSCEPTIBLE Normal [facility] Comment on above: Performed By: #### C DP, CP, TSH, LIPR ####[address] [address] #### T3, T4 ####[place] [address] APTTon 11-02-2017 aPTT 23.8 s Normal 23.0-31.0 [facility] Comment on above: Result Comment: IV H eparin Therapy Range: 64.3-87.8Performed at [address] [address] Performed By: #### C DP, CP, TSH, LIPR ####[address] [address] #### T3, T4 ####[facility] [place] [address] CBCon 11-02-2017 Erythrocyte distribution width Auto Ratio (RBC) 13.6 % Normal 11.5-14.9 [facility] Comment on above: Performed By: #### C BC, PT, PTT ####[facility] [place] [address] Erythrocytes (RBC) 3.73 10*6/uL Low 4.0-5.2 [facility] Comment on above: Performed By: #### C BC, PT, PTT ####[facility] [place] [address] Hematocrit (HCT) 34.2 % Low 36-46 [facility] Comment on above: Performed By: #### C BC, PT, PTT ####[facility] [place] [address] Hemoglobin mass conc (Bld) 11.1 g/dL Low 12.0-16.0 [facility] Comment on above: Performed By: #### C BC, PT, PTT ####[facility] [place] [address] MCH 29.7 pg Normal 26-34 [facility] Comment on above: Performed By: #### C BC, PT, PTT ####[facility] [place] [address] MCHC mass conc (RBC) 32.4 g/dL Normal 31-37 [facility] Comment on above: Performed By: #### C BC, PT, PTT ####[facility] [place] [address] MCV 91.7 fL Normal 80-100 [facility] Comment on above: Performed By: #### C BC, PT, PTT ####[address] [place] [address] Platelet mean volume (PMV) 8.1 fL Normal 6.0-12.0 [facility] Comment on above: Result Comment: Perf ormed at [id number] [place] [address] Performed By: #### C BC, PT, PTT ####[address] [address] Platelets 208 10*3/uL Normal 150-450 [facility] Comment on above: Performed By: #### C BC, PT, PTT ####[address] [address] WBC (Leukocytes) 7.5 10*3/uL Normal 3.5-11.0 [facility] Comment on above: Performed By: #### C BC, PT, PTT ####[address] [address] Erythrocytes (RBC) NOT REPORTED Normal [facility] Comment on above: Performed By: #### C BC, PT, PTT ####[address] [address] PTon 11-02-2017 INR Coag RelTime (PPP) 0.9 {INR} Normal [facility] Comment on above: Result Comment: Non- therapeutic Range: INR = 0.9-1.2Therapeutic Range: Moderate Anticoagulant Intensity: INR = 2.0-3.0 High Anticoagulant Intensity: INR = 2.5-3.5Performed at [address] [address] Performed By: #### C DP, CP, TSH, LIPR ####[address] [address] #### T3, T4 ####[facility] [place] [address] Prothrombin time (PT) Coag time (PPP) 9.4 s Low 9.7-12.0 [facility] Comment on above: Performed By: #### C DP, CP, TSH, LIPR ####[facility] [place] [address] #### T3, T4 ####[address] [address] Lipid Profileon 11-01-2017 Cholesterol to HDL Ratio 1.7 {ratio} Normal <5 [facility] Comment on above: Performed By: #### L IPR ####[address] [address] HDL Cholesterol 132 mg/dL Normal >40 [facility] Comment on above: Result Comment: HDL Guidelines: <40 Undesirable 40-59 Borderline >59 Desirable Performed By: #### L IPR ####[facility] [place] [address] LDL Cholesterol 64 mg/dL Normal 0-130 [facility] Comment on above: Result Comment: LDL Guidelines: <100 Desirable 100-129 Near to/above Desirable 130-159 Borderline >159 UndesirableDirect (measured) LDL and calculated LDL are not interchangeable tests. Performed By: #### L IPR ####[facility] [place] [address] Cholesterol 218 mg/dL High <200 [facility] Comment on above: Result Comment: Chol esterol Guidelines: <200 Desirable 200-240 Borderline >240 Undesirable Performed By: #### L IPR ####[address] [place] [address] Triglyceride 108 mg/dL Normal <150 [facility] Comment on above: Result Comment: Trig lyceride Guidelines: <150 Desirable 150-199 Borderline 200-499 High >499 Very high Based on AHA Guidelines for fasting triglyceride, April 2012.Performed at [facility] [address] [place] [address] Performed By: #### L IPR ####[facility] [place] [address] Cholesterol in VLDL mass conc NOT REPORTED Normal 08-21 [facility] Comment on above: Performed By: #### L IPR ####[facility] [place] [address] XR HAND LEFT (2 VIEWS)on eGFR (non-black) EXAMINATION:2 VIEWS LEFT HAND11/01/2017 6:59 pmCOMPARISON:None.HISTORY :ORDERING SYSTEM PROVIDED HISTORY: pus draining from palm, check for foreignbodyTECHNOLOGIST PROVIDED HISTORY:Reason for exam:->pus draining from palm, check for foreign bodyOrdering Physician Provided Reason for Exam: Absess or wound on palm of [facility].FINDINGS:No radiopaque foreign body or subcutaneous gas.There is no evidence of acute fracture. There is normal alignment. No acutejoint abnormality. No focal osseous lesion. No focal soft tissue abnormality.IMPRESSION: No acute osseous abnormality.Interpreted by:JIMENA Garrettigned by:Teodoro Manley MD11/01/17inal result Normal [facility] CBC with Diffon 10-31-2017 Abs. Basophil 0.10 k/uL Normal 0.0-0.2 [facility] Comment on above: Result Comment: Perf ormed at [facility] [address] [place] [address] Performed By: #### C DP, CP, TSH, LIPR ####[facility] [place] [address] #### T3, T4 ####[address] [place] [address] Abs.Neutrophil (Seg) 7.30 k/uL Normal 1.3-9.1 [facility] Comment on above: Performed By: #### C DP, CP, TSH, LIPR ####[address] [address] #### T3, T4 ####[address] [address] Basophils/100 WBC Auto (Bld) 1 % Normal 0-2 [facility] Comment on above: Performed By: #### C DP, CP, TSH, LIPR ####[facility] [place] [address] #### T3, T4 ####[address] [address] Eosinophils 0.10 10*3/uL Normal 0.0-0.4 [facility] Comment on above: Performed By: #### C DP, CP, TSH, LIPR ####[address] [address] #### T3, T4 ####[address] [address] Eosinophils/100 leukocytes 1 % Normal 0-4 [facility] Comment on above: Performed By: #### C DP, CP, TSH, LIPR ####[address] [address] #### T3, T4 ####[address] [address] Erythrocyte distribution width Auto Ratio (RBC) 13.7 % Normal 11.5-14.9 [facility] Comment on above: Performed By: #### C DP, CP, TSH, LIPR ####[address] [address] #### T3, T4 ####[address] [address] Erythrocytes (RBC) 4.17 10*6/uL Normal 4.0-5.2 [facility] Comment on above: Performed By: #### C DP, CP, TSH, LIPR ####[facility] [place] [address] #### T3, T4 ####[address] [address] Hematocrit (HCT) 38.0 % Normal 36-46 [facility] Comment on above: Performed By: #### C DP, CP, TSH, LIPR ####[address] [address] #### T3, T4 ####[address] [address] Hemoglobin mass conc (Bld) 12.3 g/dL Normal 12.0-16.0 [facility] Comment on above: Performed By: #### C DP, CP, TSH, LIPR ####[address] [address] #### T3, T4 ####[address] [address] Lymphocytes 1.70 10*3/uL Normal 1.0-4.8 [facility] Comment on above: Performed By: #### C DP, CP, TSH, LIPR ####[facility] [place] [address] #### T3, T4 ####[address] [address] Lymphocytes/100 leukocytes 17 % Low 24-44 [facility] Comment on above: Performed By: #### C DP, CP, TSH, LIPR ####[facility] [place] [address] #### T3, T4 ####[address] [address] MCH 29.5 pg Normal 26-34 [facility] Comment on above: Performed By: #### C DP, CP, TSH, LIPR ####[address] [address] #### T3, T4 ####[address] [address] MCHC mass conc (RBC) 32.4 g/dL Normal 31-37 [facility] Comment on above: Performed By: #### C DP, CP, TSH, LIPR ####[address] [address] #### T3, T4 ####[address] [address] MCV 91.1 fL Normal 80-100 [facility] Comment on above: Performed By: #### C DP, CP, TSH, LIPR ####[address] [address] #### T3, T4 ####[address] [address] Monocytes 1.00 10*3/uL Normal 0.1-1.3 [facility] Comment on above: Performed By: #### C DP, CP, TSH, LIPR ####[address] [address] #### T3, T4 ####[address] [address] Monocytes/100 leukocytes 10 % High 1-7 [facility] Comment on above: Performed By: #### C DP, CP, TSH, LIPR ####[address] [address] #### T3, T4 ####[address] [address] Neutrophil (Seg) 71 % High 36-66 [facility] Comment on above: Performed By: #### C DP, CP, TSH, LIPR ####[address] [address] #### T3, T4 ####[address] [address] Platelet mean volume (PMV) 8.0 fL Normal 6.0-12.0 [facility] Comment on above: Performed By: #### C DP, CP, TSH, LIPR ####[address] [address] #### T3, T4 ####[address] [address] Platelets 271 10*3/uL Normal 150-450 [facility] Comment on above: Performed By: #### C DP, CP, TSH, LIPR ####[address] [address] #### T3, T4 ####[address] [address] WBC (Leukocytes) 10.2 10*3/uL Normal 3.5-11.0 [facility] Comment on above: Performed By: #### C DP, CP, TSH, LIPR ####[address] [address] #### T3, T4 ####[address] [address] Auto Diff Performed NOT REPORTED Normal [facility] Comment on above: Performed By: #### C DP, CP, TSH, LIPR ####[address] [address] #### T3, T4 ####[address] [address] Erythrocyte morphology NOT REPORTED Normal [facility] Comment on above: Performed By: #### C DP, CP, TSH, LIPR ####[address] [address] #### T3, T4 ####[address] [address] Erythrocytes (RBC) NOT REPORTED Normal [facility] Comment on above: Performed By: #### C DP, CP, TSH, LIPR ####[address] [address] #### T3, T4 ####[address] [address] Granulocytes/100 WBC (Bld) NOT REPORTED Normal 0.00-0.30 [facility] Comment on above: Performed By: #### C DP, CP, TSH, LIPR ####[address] [place] [address] #### T3, T4 ####[address] [address] Immature granulocytes #/vol (Bld) NOT REPORTED Normal 0 [facility] Comment on above: Performed By: #### C DP, CP, TSH, LIPR ####[address] [address] #### T3, T4 ####[address] [address] Platelets NOT REPORTED Normal [facility] Comment on above: Performed By: #### C DP, CP, TSH, LIPR ####[address] [address] #### T3, T4 ####[address] [address] WBC Morphology NOT REPORTED Normal [facility] Comment on above: Performed By: #### C DP, CP, TSH, LIPR ####[address] [address] #### T3, T4 ####[address] [address] Comp Metabolic Profon 2017 (cont.) Normal [facility] Comment on above: Result Comment: Aver age GFR for 50-59 years old: 93 mL/min/1.73sq mChronic Kidney Disease: <60 mL/min/1.73sq mKidney failure: <15 mL/min/1.73sq meGFR calculated using average adult body mass. Additional eGFR calculator available at:http://[email or web address]/multiple_crcl_2011.htmPerformed at [facility] [address] [place] [address] Performed By: #### C DP, CP, TSH, LIPR ####[address] [place] [address] #### T3, T4 ####[address] [place] [address] Alanine aminotransferase (ALT) 21 U/L Normal 5-33 [facility] Comment on above: Performed By: #### C DP, CP, TSH, LIPR ####[address] [place] [address] #### T3, T4 ####[address] [place] [address] Albumin 4.2 g/dL Normal 3.5-5.2 [facility] Comment on above: Performed By: #### C DP, CP, TSH, LIPR ####[address] [place] [address] #### T3, T4 ####[address] [address] Alkaline Phos 109 U/L High 35-104 [facility] Comment on above: Performed By: #### C DP, CP, TSH, LIPR ####[address] [place] [address] #### T3, T4 ####[address] [address] Anion gap 11 mmol/L Normal 9-17 [facility] Comment on above: Performed By: #### C DP, CP, TSH, LIPR ####[facility] [place] [address] [place] [address] #### T3, T4 ####[address] [address] Aspartate aminotransferase (AST) 23 U/L Normal <32 [facility] Comment on above: Performed By: #### C DP, CP, TSH, LIPR ####[address] [place] [address] #### T3, T4 ####[address] [address] Bilirubin Ql (U) 0.22 mg/dL Low 0.3-1.2 [facility] Comment on above: Performed By: #### C DP, CP, TSH, LIPR ####[address] [place] [address] #### T3, T4 ####[address] [address] Calcium 9.1 mg/dL Normal 8.6-10.4 [facility] Comment on above: Performed By: #### C DP, CP, TSH, LIPR ####[facility] [place] [address] #### T3, T4 ####[address] [address] Chloride 100 mmol/L Normal 98-107 [facility] Comment on above: Performed By: #### C DP, CP, TSH, LIPR ####[address] [address] #### T3, T4 ####[address] [address] CO2 26 mmol/L Normal 20-31 [facility] Comment on above: Performed By: #### C DP, CP, TSH, LIPR ####[facility] [place] [address] #### T3, T4 ####[address] [address] Creatinine 0.63 mg/dL Normal 0.50-0.90 [facility] Comment on above: Performed By: #### C DP, CP, TSH, LIPR ####[facility] [place] [address] #### T3, T4 ####[address] [address] eGFR (non-black) mL/min/{1.73_m2} Normal >60 [facility] Comment on above: Performed By: #### C DP, CP, TSH, LIPR ####[facility] [place] [address] #### T3, T4 ####[facility] [place] [address] Glucose mass conc 89 mg/dL Normal 70-99 [facility] Comment on above: Performed By: #### C DP, CP, TSH, LIPR ####[facility] [place] [address] #### T3, T4 ####[facility] [place] [address] Potassium molar conc 4.0 mmol/L Normal 3.7-5.3 [facility] Comment on above: Performed By: #### C DP, CP, TSH, LIPR ####[address] [address] #### T3, T4 ####[address] [address] Protein 6.9 g/dL Normal 6.4-8.3 [facility] Comment on above: Performed By: #### C DP, CP, TSH, LIPR ####[address] [address] #### T3, T4 ####[address] [address] Sodium 137 mmol/L Normal 135-144 [facility] Comment on above: Performed By: #### C DP, CP, TSH, LIPR ####[address] [address] #### T3, T4 ####[address] [address] Urea nitrogen 16 mg/dL Normal 6-20 [facility] Comment on above: Performed By: #### C DP, CP, TSH, LIPR ####[facility] [place] [address] #### T3, T4 ####[address] [address] Albumin/Globulin Ratio NOT REPORTED Normal 1.0-2.5 [facility] Comment on above: Performed By: #### C DP, CP, TSH, LIPR ####[facility] [place] [address] [place] [address] #### T3, T4 ####[address] [address] BUN/CRE Ratio NOT REPORTED Normal 9-20 [facility] Comment on above: Performed By: #### C DP, CP, TSH, LIPR ####[facility] [place] [address] [place] [address] #### T3, T4 ####[address] [address] Staging: NOT REPORTED Normal [facility] Comment on above: Performed By: #### C DP, CP, TSH, LIPR ####[address] [place] [address] #### T3, T4 ####[address] [address] Lipid Profileon 10-31-2017 Cholesterol to HDL Ratio 1.5 {ratio} Normal <5 [facility] Comment on above: Performed By: #### C DP, CP, TSH, LIPR ####[address] [place] [address] #### T3, T4 ####[address] [address] HDL Cholesterol 142 mg/dL Normal >40 [facility] Comment on above: Result Comment: HDL Guidelines: <40 Undesirable 40-59 Borderline >59 Desirable Performed By: #### C DP, CP, TSH, LIPR ####[facility] [place] [address] #### T3, T4 ####[address] [address] LDL Cholesterol 52 mg/dL Normal 0-130 [facility] Comment on above: Result Comment: LDL Guidelines: <100 Desirable 100-129 Near to/above Desirable 130-159 Borderline >159 UndesirableDirect (measured) LDL and calculated LDL are not interchangeable tests. Performed By: #### C DP, CP, TSH, LIPR ####[address] [address] #### T3, T4 ####[address] [address] Cholesterol 220 mg/dL High <200 [facility] Comment on above: Result Comment: Chol esterol Guidelines: <200 Desirable 200-240 Borderline >240 Undesirable Performed By: #### C DP, CP, TSH, LIPR ####[address] [address] #### T3, T4 ####[address] [address] Triglyceride 131 mg/dL Normal <150 [facility] Comment on above: Result Comment: Trig lyceride Guidelines: <150 Desirable 150-199 Borderline 200-499 High >499 Very high Based on AHA Guidelines for fasting triglyceride, April 2012.Performed at [facility] [address] [place] [address] Performed By: #### C DP, CP, TSH, LIPR ####[address] [address] #### T3, T4 ####[address] [address] Cholesterol in VLDL mass conc NOT REPORTED Normal 08-21 [facility] Comment on above: Performed By: #### C DP, CP, TSH, LIPR ####[facility] [place] [address] #### T3, T4 ####[address] [address] Thyroid Stim. Horm.on 2017 Thyroid stimulating hormone (TSH) 5.28 m[IU]/L High 0.30-5.00 [facility] Comment on above: Result Comment: Perf ormed at [facility] [address] [place] [address] Performed By: #### C DP, CP, TSH, LIPR ####[facility] [place] [address] #### T3, T4 ####[address] [address] Thyroxine T4on 10-31-2017 Thyroxine (T4) 6.6 ug/dL Normal 4.5-12.0 [facility] Comment on above: Result Comment: Perf ormed at [address] [address] Performed By: #### C DP, CP, TSH, LIPR ####[facility] [place] [address] #### T3, T4 ####[address] [address] Triiodothyronine T3on 2017 Triiodothyronine T3 143 ng/dL Normal 80-200 [facility] Comment on above: Result Comment: Perf ormed at [address] [id number] [phone] Performed By: #### C DP, CP, TSH, LIPR ####[facility] [facility] [place] [address] #### T3, T4 ####[address] [place] [address] PSYCHIATRIC EVALUATIONon PSYCHIATRIC EVALUATION [address] [address] PSYCHIATRIC EVALUATIONPATIENT NAME: ROSENDA ALEXANDER : 1960MED REC NO: [id number] ROOM: 0235ACCOUNT NO: [id number] ADMIT DATE: 10/30/2017PROVIDER: Paul CasillasurtiCOMPREHENSIVE PSYCHIATRIC EVALUATIONHISTORY [...] life. With this, she is admitted from [facility].PAST PSYCHIATRIC HISTORY: History of major depressive disorder [...] STAY: 10 days.PAUL INDURTID: 10/30/2017 17:32:31 [id number]#: [id number] Doc#: [id number]: Normal [facility] Coding Summary.on 09-12-2017 Coding Summary. CODING DATE: 018 [facility] STATUS: Home (Routine DC) PAYOR: Medicare ADMIT [...] Bowles Date Saved: 09/12/2017 06:55 am Normal [facility] Cortisolon 09-12-2017 Cortisol mass conc 14.9 microgram/dL [facility] Comment on above: Result Comment: Chester isol AM 6.2 - 19.4 Cortisol PM 2.3 - 11.9 Performed at: [facility] [id number] PhD Wilda Gunter Performed By: #### 2 [id number], 2786852, 42097124, 8894559, 69007844, 4242124, 6142336, 1414881, 5692597, 4131409, 6281067, 2429684, 31251087, 7955344, 6354005 #### [facility] [address] [place] [address] DHEASon 09-12-2017 Dehydroepiandrosterone sulfate (DHEA-S) mass conc 54.3 microgram/dL 29.4-220.5 [facility] Comment on above: Result Comment: Perf ormed at: [address] [id number] PhD Wilda Gunter Performed By: #### 2 539730, 6387701, 61631852, 7412081, 80505099, 7898282, 7437483, 5873301, 5114731, 6969753, 0720300, 8102603, 84067276, 7078258, 9298556 #### [facility] [address] [place] [address] Estradiolon 09-12-2017 Estradiol (E2) mass conc pg/mL [facility] Comment on above: Result Comment: Adul t Female: Follicular phase 12.5 - 166.0 Ovulation phase 85.8 - 498.0 Luteal phase 43.8 - 211.0 Postmenopausal <6.0 - 54.7 1st trimester 215.0 - >4300.0 Girls (1-10 years) 6.0 - 27.0 Adeel ECLIA methodology Performed at: [address] [id number] PhD Wilda Gunter Performed By: #### 2 256234, 0984535, 98938785, 7888337, 80714619, 9358725, 2437475, 7586946, 9704701, 4448818, 8416267, 8749150, 51145698, 6646973, 6172216 #### [facility] [address] [place] [address] Testost Totalon 09-12-2017 Testosterone mass conc 12 ng/dL 3-41 [facility] Comment on above: Result Comment: Perf ormed at: [id number] [place], [place] [id number] PhD Wilda Gunter Performed By: #### 2 493746, 0391057, 27257604, 6299714, 80198477, 9072746, 1841207, 3913932, 4866312, 9200162, 4632989, 8216649, 58410987, 4111410, 4981383 #### [facility] [address] [place] [address] Auto Diffon 09-11-2017 Basophils #/vol (Bld) 0.7 % Normal 0.0-2.0 [facility] Comment on above: Order Comment: Order Added by Discern Expert. Performed By: #### 2 089589, 5478904, 85764534, 9200991, 12289895, 1614518, 0298812, 0933415, 0997212, 4132676, 7357704, 5614028, 62737432, 3876003, 1102438 #### [facility] [address] [place] [address] Basophils/Leukocytes Auto Pure number fraction (Bld) 0.0 E9/L Normal 0.0-0.2 [facility] Comment on above: Order Comment: Order Added by Discern Expert. Performed By: #### 2 681892, 6822457, 49175976, 7367664, 98317252, 1872082, 4523768, 0286070, 8500950, 9353199, 0888160, 0217823, 46519111, 4927561, 5518978 #### [facility] [address] [place] [address] Eosinophils/100 WBC (Bld) 3.1 % Normal 0.0-8.0 [facility] Comment on above: Order Comment: Order Added by Discern Expert. Performed By: #### 2 461204, 2380612, 80138226, 9086418, 02979773, 2611720, 3366839, 7382945, 7853690, 3438382, 4536991, 3505641, 32453872, 2970187, 1218606 #### [facility] [address] [place] [address] Eosinophils/Leukocytes Auto Pure number fraction (Bld) 0.2 E9/L Normal 0.0-0.5 [facility] Comment on above: Order Comment: Order Added by Discern Expert. Performed By: #### 2 512135, 1618159, 97059042, 3716336, 67020035, 9880238, 6891990, 6080129, 9712322, 5043201, 2425874, 5792637, 43545420, 5223890, 2473402 #### [facility] [address] [place] [address] Lymphocytes/100 WBC (Bld) 21.1 % Normal 14.0-50.0 [facility] Comment on above: Order Comment: Order Added by Discern Expert. Performed By: #### 2 849768, 1081061, 43554770, 0967706, 06342418, 8590503, 2051537, 3534200, 4885895, 0066044, 8438705, 4360801, 31209154, 8912889, 0149909 #### [facility] [address] [place] [address] Lymphocytes/Leukocytes Auto Pure number fraction (Bld) 1.1 E9/L Normal 1.0-4.0 [facility] Comment on above: Order Comment: Order Added by Discern Expert. Performed By: #### 2 978692, 3608751, 81637282, 0513110, 29539637, 5804388, 9353047, 5565866, 9463658, 2735379, 3110290, 7347999, 89205821, 2322690, 7706534 #### [facility] [address] [place] [address] Monocytes/100 WBC (Bld) 8.0 % Normal 4.0-14.0 [facility] Comment on above: Order Comment: Order Added by Discern Expert. Performed By: #### 2 101476, 7967186, 56095205, 1670348, 32572812, 6011710, 9848713, 2668443, 9756808, 8605238, 6505260, 6424468, 39998762, 5656173, 8847914 #### [facility] [address] [place] [address] Monocytes/Leukocytes Auto Pure number fraction (Bld) 0.4 E9/L Normal 0.2-1.0 [facility] Comment on above: Order Comment: Order Added by Discern Expert. Performed By: #### 2 029998, 7823562, 12058293, 7571901, 63360843, 4391153, 3654627, 3664449, 4640867, 8618879, 4273557, 2623839, 31302560, 8925809, 7872248 #### [facility] [address] [place] [address] Neutrophils/100 WBC (Bld) 67.1 % Normal 36.0-75.0 [facility] Comment on above: Order Comment: Order Added by Discern Expert. Performed By: #### 2 196470, 9136374, 54916510, 9591311, 83344097, 7749729, 5798774, 5595354, 7332146, 5217862, 1698803, 0001723, 88512384, 9073670, 8309665 #### [facility] [address] [place] [address] Neutrophils/Leukocytes Auto Pure number fraction (Bld) 3.5 E9/L Normal 2.0-7.5 [facility] Comment on above: Order Comment: Order Added by Discern Expert. Performed By: #### 2 035113, 2295905, 83936514, 6859357, 60017866, 4073034, 1155747, 2646325, 5639861, 1265628, 6788363, 1040231, 14609338, 9834647, 9041933 #### [facility] [address] [place] [address] CBC w/ Auto Diffon 8 Erythrocyte distribution width Ratio (RBC) 14.0 % Normal 10.9-14.2 [facility] Comment on above: Performed By: #### 2 579181, 6306136, 55259636, 3297414, 97433459, 0151681, 6114065, 3005735, 4727468, 0186996, 7996483, 4507471, 07866360, 1251717, 4564310 #### [facility] [address] [place] [address] Hematocrit Volume Fraction (Bld) 37.7 % Normal 34.0-46.0 [facility] Comment on above: Performed By: #### 2 648032, 9866742, 64963227, 1109730, 69960137, 9686203, 3999033, 0403271, 1769168, 8791976, 1524421, 6492907, 49032271, 9040916, 5172899 #### [facility] [address] [place] [address] Hemoglobin mass conc (Bld) 12.7 g/dL Normal 12.0-16.0 [facility] Comment on above: Performed By: #### 2 040227, 0288913, 70075174, 7904540, 63253161, 7438697, 6347740, 8636892, 2399872, 3647624, 3908020, 4213234, 11328360, 9895822, 2113970 #### [facility] [address] [place] [address] MCH Entitic mass (RBC) 31.5 pg Normal 27.0-34.0 [facility] Comment on above: Performed By: #### 2 010529, 3424408, 82738050, 4179083, 18996200, 3434407, 1806591, 1757107, 6935582, 8108137, 1583794, 0152946, 99615434, 0990079, 3565132 #### [facility] [address] [place] [address] MCHC mass conc (RBC) 33.8 g/dL Normal 31.4-39.3 [facility] Comment on above: Performed By: #### 2 560127, 6659351, 61807907, 5502525, 70792179, 0671669, 2040221, 6988641, 8517846, 1085239, 5855151, 5018629, 99349847, 0650254, 5905776 #### [facility] [address] [place] [address] MCV Entitic volume (RBC) 93.1 fL Normal 80.0-100.0 [facility] Comment on above: Performed By: #### 2 426305, 7554563, 56571629, 0686975, 43403803, 4293213, 3224979, 0094569, 7264016, 6027203, 2716590, 7112214, 25318017, 6073141, 6505854 #### [facility] [address] [place] [address] Platelet mean volume Entitic volume (Bld) 7.5 fL Normal 6.4-10.8 [facility] Comment on above: Performed By: #### 2 536264, 0989745, 69319257, 6798850, 25488864, 0960638, 8185534, 2514784, 8026604, 7701117, 6661310, 7762586, 44118194, 7755259, 9415549 #### [facility] [address] [place] [address] Platelets #/vol (Bld) 229.0 E9/L Normal 150.0-500.0 [facility] Comment on above: Performed By: #### 2 319250, 3161932, 59286412, 0506260, 15938955, 0087044, 0388405, 1013899, 6851501, 7716323, 9677954, 5498428, 45475956, 4901563, 0081207 #### [facility] [address] [place] [address] RBC #/vol (Bld) 4.0 E12/L Low 4.3-5.9 [facility] Comment on above: Performed By: #### 2 172513, 5069737, 69121601, 1908220, 23575879, 9430604, 7403557, 6924198, 9545853, 9779599, 1566744, 1340654, 79927604, 1685435, 7250997 #### [facility] [address] [place] [address] WBC corrected for nucl RBC Auto #/vol (Bld) 5.2 E9/L Normal 4.0-11.0 [facility] Comment on above: Performed By: #### 2 630553, 4382215, 06693299, 3338529, 72087643, 7296278, 3606841, 3556521, 3498697, 5218171, 2116639, 1994283, 38199430, 4205298, 0966322 #### [facility] [address] [place] [address] CMPon 09-11-2017 Albumin mass conc 1.4 g/dL Normal 1.1-2.2 [facility] Comment on above: Performed By: #### 2 700127, 2624827, 77675773, 9109935, 28104094, 9733340, 4517407, 4722356, 1852363, 0614063, 6063845, 6572676, 88879863, 4388225, 1815076 #### [facility] [address] [place] [address] Albumin mass conc 4.2 g/dL Normal 3.3-5.0 [facility] Comment on above: Performed By: #### 2 275066, 2834734, 09660317, 1465365, 63957335, 7833999, 8052043, 5835808, 4606000, 3706278, 5165109, 0941231, 58306617, 2683301, 0918264 #### [facility] [address] [place] [address] ALP enzyme act/vol 105 Int._Unit/L High 21-98 [facility] Comment on above: Performed By: #### 2 601678, 8614570, 42452667, 5751030, 36907139, 9159609, 2432125, 5212327, 4588239, 2413434, 4280537, 8469504, 20888690, 7086463, 0024559 #### [facility] [address] [place] [address] ALT No additional P-5'-P enzyme act/vol 18 Int._Unit/L Normal 6-46 [facility] Comment on above: Performed By: #### 2 837546, 0248577, 42439224, 9229265, 06343268, 0701565, 9547678, 5098605, 4123821, 3834254, 3962680, 2450673, 18229689, 5398258, 5873437 #### [facility] [address] [place] [address] Anion gap molar conc 11 mmol/L Normal 6-16 [facility] Comment on above: Performed By: #### 2 286650, 1036276, 33072668, 5848944, 07284146, 0298606, 2475417, 9673675, 1789611, 8760771, 9824199, 1540937, 66755540, 6375229, 7080482 #### [facility] [address] [place] [address] AST enzyme act/vol 26 Int._Unit/L Normal 5-43 [facility] Comment on above: Performed By: #### 2 984899, 1336694, 48790876, 8460123, 97854390, 1034789, 1882980, 8309502, 2390649, 5359006, 8002534, 2954980, 24179470, 9726566, 8350745 #### [facility] [address] [place] [address] Bilirubin mass conc 0.5 mg/dL Normal 0.0-1.1 [facility] Comment on above: Performed By: #### 2 436125, 5373192, 18630040, 0800505, 84733389, 3412507, 4701369, 9114048, 9995658, 3630197, 2965665, 8692530, 77452170, 9986801, 2574103 #### [facility] [address] [place] [address] Calcium mass conc 9.7 mg/dL Normal 8.9-11.1 [facility] Comment on above: Performed By: #### 2 197635, 8348439, 22351137, 7161372, 92911912, 4602880, 6900041, 2479639, 4758130, 8871966, 5652527, 0841717, 93260193, 6577002, 8199928 #### [facility] [address] [place] [address] Chloride molar conc 107 mmol/L Normal 101-111 [facility] Comment on above: Performed By: #### 2 076056, 3758336, 26024016, 2083216, 94012183, 9930062, 8681026, 1380531, 1948774, 1856938, 7035118, 9692727, 39545914, 7706259, 4820278 #### [facility] [address] [place] [address] CO2 molar conc 26 mmol/L Normal 21-31 [facility] Comment on above: Performed By: #### 2 548430, 2875798, 88086055, 1894617, 26466101, 9590422, 6689520, 2286322, 1506880, 2726655, 0049684, 7772661, 93976208, 6922890, 5816921 #### [facility] [address] [place] [address] Creatinine mass conc 0.6 mg/dL Normal 0.5-1.3 [facility] Comment on above: Performed By: #### 2 849295, 9290646, 72859599, 9808628, 89857294, 9367012, 7736036, 6488474, 4265958, 8495606, 3975792, 5743243, 54664955, 4562740, 0952621 #### [facility] [address] [place] [address] Globulin mass conc (S) 2.9 g/dL Normal 1.4-4.0 [facility] Comment on above: Performed By: #### 2 499512, 8959922, 53784944, 1799721, 71009542, 7624750, 0180052, 6764915, 0686295, 3355807, 9154953, 1559075, 90214759, 1284688, 3438221 #### [facility] [address] [place] [address] Glucose mass conc 88 mg/dL Normal 55-199 [facility] Comment on above: Result Comment: If t his glucose result represents a fasting glucose, interpretation should refer to the following reference range: 55-99 mg/dL Performed By: #### 2 420788, 0122871, 00539541, 5755764, 95965559, 9604673, 0260071, 9941558, 7526575, 0099336, 4078863, 1401861, 24250118, 9833251, 7171861 #### [facility] [address] [place] [address] Potassium molar conc 5.6 mmol/L High 3.5-5.3 [facility] Comment on above: Performed By: #### 2 780820, 9421781, 79306266, 5860566, 81349070, 5858586, 2559132, 4705697, 3592518, 2778373, 4869444, 4835927, 67510989, 5548639, 5538144 #### [facility] [address] [place] [address] Protein mass conc 7.1 g/dL Normal 6.0-7.8 [facility] Comment on above: Performed By: #### 2 774529, 8530492, 36611002, 8668018, 02003781, 1039451, 7266012, 7985880, 9380121, 1312232, 8979233, 6269205, 05396942, 2485813, 3689028 #### [facility] [address] [place] [address] Sodium molar conc 138 mmol/L Normal 135-145 [facility] Comment on above: Performed By: #### 2 365674, 3376806, 37345704, 4454133, 11472984, 0222157, 8795297, 7320402, 5861187, 0060348, 4151237, 0119157, 82514397, 8915405, 5173257 #### [facility] [address] [place] [address] Urea nitrogen mass conc 15 mg/dL Normal 5-21 [facility] Comment on above: Performed By: #### 2 395616, 5609623, 77247333, 4460817, 46968882, 3782029, 9173050, 9653533, 6620435, 5626886, 9841602, 4534140, 03745417, 0914038, 3593467 #### [facility] [address] [place] [address] Urea nitrogen/Creatinine mass ratio 25 No Units High - [facility] Comment on above: Performed By: #### 2 197968, 9781410, 74798800, 3850548, 12880530, 8047787, 7068194, 2050671, 0248885, 8831649, 4902760, 1701161, 62160659, 8335448, 0976215 #### [facility] [address] [place] [address] CRPon 09-11-2017 CRP mass conc mg/L Normal <=1.9 [facility] Comment on above: Performed By: #### 2 993727, 1243674, 54350895, 3035566, 60360632, 4623495, 4134942, 9080386, 2717387, 8255383, 5454072, 5561096, 53225289, 3972549, 5450394 #### [facility] [address] [place] [address] Free T4on 09-11-2017 T4 free mass conc 0.57 ng/dL Low 0.58-1.64 [facility] Comment on above: Performed By: #### 2 036715, 3392013, 91848513, 6751036, 41883699, 1242566, 1997953, 0659329, 0326500, 1724283, 0225443, 4184923, 34195609, 5883260, 3143605 #### [facility] [address] [place] [address] Lipid Panelon 09-11-2017 Cholesterol in HDL mass conc 126 mg/dL [facility] Comment on above: Result Comment: HDL > or equal to 60 mg/dL: Low cardiovascular risk HDL < 40 mg/dL : High cardiovascular risk Performed By: #### 2 685502, 0554136, 45034639, 4849630, 40933379, 7243771, 3746542, 6633541, 4344794, 3353719, 7608394, 7210248, 74209021, 9690095, 8005521 #### [facility] [address] [place] [address] Cholesterol in LDL mass conc 76 mg/dL Normal <=129 [facility] Comment on above: Performed By: #### 2 682753, 8049883, 77134496, 7387920, 37596781, 9001546, 3039619, 1104460, 2662192, 2056754, 2129079, 2266395, 93131005, 9187575, 3665470 #### [facility] [address] [place] [address] Cholesterol in VLDL mass conc 12 mg/dL Normal 7-40 [facility] Comment on above: Performed By: #### 2 015635, 4718208, 99678186, 5580732, 46433133, 9715933, 6450159, 7198030, 5968495, 9298272, 6722365, 2869667, 97435863, 9881894, 1189905 #### [facility] [address] [place] [address] Cholesterol mass conc 225 mg/dL High 120-200 [facility] Comment on above: Performed By: #### 2 359208, 2183209, 23217036, 4159378, 13761018, 9970385, 6176272, 0639322, 3272874, 4130623, 6750334, 5347300, 72605927, 7353085, 0393086 #### [facility] [address] [place] [address] Triglyceride mass conc 61 mg/dL Normal <=149 [facility] Comment on above: Performed By: #### 2 398068, 0398967, 54906934, 0289936, 28493302, 3630654, 8814637, 8409000, 7615907, 3432123, 7856988, 2797434, 94813190, 5382534, 9603511 #### [facility] [address] [place] [address] Progesteroneon 09-11-2017 Progesterone mass conc 0.30 ng/mL [facility] Comment on above: Result Comment: REFE RENCE RANGE Males 0.14-2.06 ng/mL Non- Females Follicular 0.10-0.60 ng/mL Luteal 3.00-17.5 ng/mL Midluteal 3.30-18.6 ng/mL Post-Menopausal 0.10-0.40 ng/mL First Trimester 8.30-66.5 ng/mL Second Trimester 18.9-66.1 ng/mL Third Trimester 35.8-312.4 ng/mL Performed By: #### 2 091183, 4220197, 99684764, 9056427, 69801960, 9926149, 0151371, 5930932, 0612249, 7833025, 2531548, 7514372, 94434168, 9700115, 0657021 #### [facility] [address] [place] [address] Sed Rate Automatedon 018 ESR Velocity (Bld) 13 mm/h Normal 0-34 [facility] Comment on above: Performed By: #### 2 189864, 2176326, 08003340, 7332525, 49313671, 7540565, 6965693, 2062350, 4567132, 2170190, 4299839, 3029244, 81120583, 7902944, 0460392 #### [facility] [address] [place] [address] TSHon 09-11-2017 Thyrotropin Qn 5.15 mcIU/mL Normal 0.34-5.60 [facility] Comment on above: Performed By: #### 2 836847, 2819066, 71546194, 1951866, 43682576, 5707742, 3109272, 9609572, 2311899, 1927563, 3695102, 8743819, 05573820, 5920341, 3553556 #### [facility] [address] [place] [address] Uric Acidon 09-11-2017 Urate mass conc 5.4 mg/dL Normal 2.2-7.4 [facility] Comment on above: Performed By: #### 2 476444, 5768726, 04620388, 3906575, 48623241, 5163024, 7220493, 0053217, 4256710, 3379553, 9760655, 9643320, 91902718, 2593596, 4020559 #### [facility] [address] [place] [address] eGFRon 09-11-2017 GFR/1.73 sq M predicted among blacks MDRD vol rate/area (S/P/Bld) mL/min/{1.73_m2} Normal >=59 [facility] Comment on above: Order Comment: Order added by Discern Expert. Result Comment: eGFR is race adjusted. AA=. Performed By: #### 2 549452, 9654574, 56103179, 4325785, 42988374, 3393498, 0796579, 2587662, 6645245, 1438887, 1693600, 5770766, 32206068, 3058552, 4617411 #### [facility] [address] [place] [address] GFR/1.73 sq M predicted among non-blacks MDRD vol rate/area (S/P/Bld) mL/min/{1.73_m2} Normal >=59 [facility] Comment on above: Order Comment: Order added by Discern Expert. Result Comment: [employer] Supervisor leon kidney disease could be indicated at eGFR's of less than 60 mL/min/1.73m2. Kidney failure is indicated at less than 15 mL/min/1.73m2. Performed By: #### 2 329992, 2743849, 78003085, 0125579, 32225652, 3487584, 1164077, 7318192, 3257590, 5554530, 1123657, 3315622, 32508122, 7760915, 8614904 #### [facility] [address] [place] [address] Encounters Encounter Date Encounter Type Care Provider Facility Start: 01-10-2024 End: 01-10-2024 ambulatory CHEMA AICHHOLZ Not Available Start: 10-10-2023 End: 10-10-2023 ambulatory CHEMA AICHHOLZ Not Available Start: 07-10-2023 End: 07-10-2023 ambulatory CHEMA AICHHOLZ Not Available Start: 03-30-2022 End: 03-31-[address] DAVID MADRID Facility:[facility] Start: 02-27-2022 End: 02-28-2022 ambulatory PERNELL CHEMA AICHHOLZ Facility:[facility] Start: 08-09-2018 End: 08-10-2018 Patient encounter procedure Charli Laurent Facility:[facility] Start: 10-30-2017 End: 11-05-2017 Evaluation and management of inpatient PAUL V INDURTI [facility] Start: 09-11-2017 End: 09-12-2017 Patient encounter procedure Manav Lo Facility:[facility] Procedures Date Procedure Procedure Detail Performing Clinician [...] INDURTI Payers Date Payer Category Payer Medicare [id number] 1960 Medicare [id number] 1960 Unknown [id number] 2.16.84 [id number] 1960 Unknown [id number] 2.16.84 [id number] 1959 Unknown [id number] 2.16.84 [id number] 1959 Unknown [id number] 2.16.84 [id number] 1959 Unknown [id number] 2.16.84 0.1.198312.3.579.2.1259 1959 Unknown [id number] 2.16.84 [id number] 1959 Unknown [id number] 2.16.840 .[id number] Summary Purpose Family History No Family History Records FoundNo Family History Records FoundNo Family History Records FoundNo Family History Records Found Advance Directives No Advanced Directives Records FoundNo Advanced Directives Records FoundNo Advanced Directives Records FoundNo Advanced Directives Records Found Additional Source Comments INFORMATION SOURCE (unrecogn ized section and content) DATE CREATED AUTHOR 01/09/2018 [facility] DATE CREATED AUTHOR AUTHOR'S ORGANIZ ATION 08/29/2018 [facility] DATE CREATED AUTHOR AUTHOR'S ORGANIZ ATION 11/14/2022 [facility] DATE CREATED AUTHOR AUTHOR'S ORGANIZ ATION 01/11/2024 [facility] FOR RECORDS PERTAINING TO PATIENTS WHO ARE [...] BE BASED ON THE PRIMARY CLINICAL RECORDS. [employer] provides no warranty or guarantee of the accuracy or completeness of information in this document.
[2024-03-13 08:54] LABS: Basophils Percent Auto 0.3 % (0.2-2.0); Eosinophils Absolute Auto 0.1 10^3/uL (0.0-0.7); Eosinophils Percent Auto 1.6 % (0.9-7.0); Hematocrit 34.7 % (36.0-48.0); Hemoglobin 11.6 g/dL (12.0-16.0); Immature Granulocytes Abs Auto 0.02 10^3/uL (0.00-0.03); Immature Granulocytes Pct Auto 0.5 % (0.0-0.5); Lymphocytes Absolute Auto 0.8 10^3/uL (1.2-3.8); Lymphocytes Percent Auto 22.3 % (20.5-60.0); Mean Corpuscular HGB Conc 33.4 g/dL (29.9-35.2); Mean Corpuscular Volume 98.6 fL (81.0-99.0); Mean Platelet Volume 10.8 fL (9.5-13.5); Monocytes Absolute Auto 0.4 10^3/uL (0.3-0.8); Monocytes Percent Auto 9.8 % (1.7-12.0); Neutrophils Absolute Auto 2.5 10^3/uL (1.4-6.5); Neutrophils Percent Auto 65.5 % (43.0-75.0); Platelet Count 97 10^3/uL (150-450); Red Blood Count 3.52 10^6/uL (4.20-5.40); Red Cell Distribution Width 15.9 % (11.0-15.0); White Blood Count 3.8 10^3/uL (4.0-11.0)
[2024-03-13 09:15] LABS: Free T4 0.67 ng/dL (0.76-1.46)
[2024-03-13 09:18] LABS: Magnesium 1.1 mg/dL (1.8-2.4)
== END 2024-03-13 08:18 | disposition home or self-care (01) ==
LOC: LAB 08:20
PROVIDERS: PCP Nurse Practitioner; Visit Provider Nurse Practitioner
DX: D69.6 Thrombocytopenia, unspecified (principal); E83.42 Hypomagnesemia; E03.9 Hypothyroidism, unspecified
CPT/HCPCS: 36415; 83735; 84439; 84443; 85025

== ENCOUNTER 2024-04-30 12:40 | Emergency (ER) | payer MEDICARE, SELFPAY ==
[2024-04-30] VITALS (24 sets, daily range): BP systolic 122–145; BP diastolic 67–87; PULSE 49–79; TEMP 36.9; O2SAT 98–100; BMI 24.2
--- OUTSIDE RECORDS SUMMARY | 2024-04-30 13:17 | XMS_ITS | CCD ---
Author Organization [facility] Care Team Providers Care Ginner Helper Name Role Phone INDURTI, PAUL V Unavailable Unavailable INDURTI, PAUL V Unavailable Unavailable CONSUELO, JOYCE Unavailable Unavailable Manav Lo Admitting Unavailable Manav Lo Attending Unavailable Manav Lo Primary Care Unavailable Charli Laurent Admitting Unavailable Charli Laurent Attending Unavailable Charli Laurent Referring Unavailable NONE, XXXX Primary Care Unavailable AICHHOLZ, SAND BUFFER CHEMA Admitting Unavailable AICHHOLZ, SAND BUFFER CHEMA Attending Unavailable AICHHOLZ, SAND BUFFER CHEMA Primary Care Unavailable AICHHOLZ, SAND BUFFER CHEMA Consulting Unavailable BEDOCS, DR DAVID Alston Admitting Unavailable BEDOCS, DR DAVID Alston Attending Unavailable AICHHOLZ, SAND BUFFER CHEMA Primary Care Unavailable BEDOCS, DR DAVID Alston Consulting Unavailable AICHHOLZ, CHEMA Attending Unavailable AICHHOLZ, CHEMA Attending Unavailable AICHHOLZ, CHEMA Attending Unavailable Allergies Allergy Classification Reported Allergen(s) Allergy Type Date of Onset Reaction(s) Facility (1 source) Clindamycin Drug Allergy 02-27-2014 [facility] (1 source) Penicillins Drug allergy (disorder) [facility] Problems Problem Classification Problem [...] PLUSon 0 04-01-2022 QuantiFERON Criteria Comment Normal [facility] Comment on above: Result Comment: Juan tiFERON-TB [...] test. Performed By: #### Q NTTB #### [facility] [address] [place] [address] Dr. Jewel Rascon QuantiFERON Incubation Incubation performed. Normal [facility] Comment on above: Performed By: #### Q NTTB #### [facility] [address] [place] [address] Dr. Jewel Rascon QuantiFERON Mitogen Value >10.00 Normal [facility] Comment on above: Performed By: #### Q NTTB #### [facility] [address] [place] [address] Dr. Jewel Rascon QuantiFERON Nil Value 0.03 IU/mL Normal [facility] Comment on above: Performed By: #### Q NTTB #### [facility] [address] [place] [address] Dr. Jewel Rascon QuantiFERON TB1 Ag Value 0.09 IU/mL Normal [facility] Comment on above: Performed By: #### Q NTTB #### [facility] [address] [place] [address] Dr. Jewel Rascon QuantiFERON TB2 Ag Value 0.08 IU/mL Normal [facility] Comment on above: Performed By: #### Q NTTB #### [facility] [address] [place] [address] Dr. Jewel Rascon QuantiFERON-TB Gold Plus Negative Normal Negative [facility] Comment on above: Result Comment: No r esponse to M tuberculosis antigens detected. Infection with M tuberculosis is unlikely, but high risk individuals should be considered for additional testing (ATS/IDSA/CDC Clinical Practice Guidelines, 2017). The reference range is an Antigen minus Nil result of <0.35 IU/mL. Chemiluminescence immunoassay methodology Performed By: #### Q NTTB #### [facility] [address] [place] [address] Dr. Jewel Rascon HEP B COREon 03-31-2022 Hep B Core Ab, Tot Negative Normal Negative [facility] Comment on above: Performed By: #### H BCORE #### [facility] [address] [place] [address] Dr. Jewel Rascon HEP B SURFACE ANTIGEN SCREEN on 03-31-2022 HBsAg Screen Negative Normal Negative [facility] Comment on above: Performed By: #### H EPBSRF #### [facility] [address] [place] [address] Dr. Jewel Rascon HEPATITIS B SURFACE ANTIBODY , QUANTon 03-31-2022 Hepatitis B Surf AB Quant <3.1 Critically low Immunity>9. 9 [facility] Comment on above: Result Comment: Stat us of Immunity Anti-HBs Level Inconsistent with Immunity 0.0 - 9.9 Consistent with Immunity >9.9 Performed By: #### H EPBSRF #### [facility] [address] [place] [address] Dr. Jewel Rascon HEPATITIS C ANTIBODYon 03-31 Hep C Virus Ab <0.1 Normal 0.0-0.9 [facility] Comment on above: Result Comment: Nega tive: [...] Hepatitis C Virus (HCV) RNA, Diagnosis, MEGHAN ([id number]) and Hepatitis C Virus (HCV) Antibody with reflex to Quantitative Real-time PCR ([id number]). Performed By: #### H CV #### [facility] [address] [address] [address] Jewel Rascon CBC AUTO DIFFon 03-30-2022 BASO # 0.0 103/ul Normal 0.0-0.1 [facility] Comment on above: Performed By: #### C BC #### [facility] [address] [address] [address] Jewel Rascon Basophils/100 WBC (Bld) 0.8 % Normal 0.2-2.0 [facility] Comment on above: Performed By: #### C BC #### [facility] [address] [place] [address] Dr. Jewel Rascon EO # 0.2 103/ul Normal 0.0-0.7 [facility] Comment on above: Performed By: #### C BC #### [facility] [address] [place] [address] Dr. Jewel Rascon Eosinophils/100 WBC (Bld) 3.0 % Normal 0.9-7.0 [facility] Comment on above: Performed By: #### C BC #### [facility] [address] [place] [address] Dr. Jewel Rascon Erythrocyte distribution width (RBC) [Ratio] 13.3 % Normal 11.0-15.0 [facility] Comment on above: Performed By: #### C BC #### [facility] [address] [place] [address] Dr. Jewel Rascon Hematocrit (Bld) [Volume fraction] 35.8 % Critically low 36.0-48.0 [facility] Comment on above: Performed By: #### C BC #### [facility] [address] [place] [address] Dr. Jewel Rascon Hemoglobin (Bld) [Mass/Vol] 11.6 g/dL Critically low 12.0-16.0 [facility] Comment on above: Performed By: #### C BC #### [facility] [address] [place] [address] Dr. Jewel Rascon IG # 0.02 10e3/ul Normal 0.00-0.03 [facility] Comment on above: Performed By: #### C BC #### [facility] [address] [place] [address] Dr. Jewel Rascon IG % 0.4 % Normal 0.0-0.5 [facility] Comment on above: Performed By: #### C BC #### [facility] [address] [place] [address] Dr. Jewel Rascon LYMPH # 1.7 103/ul Normal 1.2-3.8 [facility] Comment on above: Performed By: #### C BC #### [facility] [address] [place] [address] Dr. Jewel Rascon Lymphocytes/100 WBC (Bld) 32.2 % Normal 20.5-60.0 [facility] Comment on above: Performed By: #### C BC #### [facility] [address] [place] [address] Dr. Jewel Rascon MANUAL DIFF REQ NO Normal [facility] Comment on above: Performed By: #### C BC #### [facility] [address] [place] [address] Dr. Jewel Rascon MCH (RBC) [Entitic mass] 29.4 pg Normal 26.7-34.0 [facility] Comment on above: Performed By: #### C BC #### [facility] [address] [place] [address] Dr. Jewel Rascon MCHC (RBC) [Mass/Vol] 32.4 g/dL Normal 29.9-35.2 [facility] Comment on above: Performed By: #### C BC #### [facility] [address] [place] [address] Dr. Jewel Rascon MCV (RBC) [Entitic vol] 90.9 fL Normal 81.0-99.0 T [facility] Comment on above: Performed By: #### C BC #### [facility] [address] [place] [address] Dr. Jewel Rascon MONO # 0.5 103/ul Normal 0.3-0.8 [facility] Comment on above: Performed By: #### C BC #### [facility] [address] [address] [address] Jewel Rascon Monocytes/100 WBC (Bld) 9.3 % Normal 1.7-12.0 [facility] Comment on above: Performed By: #### C BC #### [facility] [address] [address] [address] Jewel Rascon NEUT # 2.9 103/ul Normal 1.4-6.5 [facility] Comment on above: Performed By: #### C BC #### [facility] [address] [place] [address] Dr. Jewel Rascon Neutrophils/100 WBC (Bld) 54.3 % Normal 43.0-75.0 [facility] Comment on above: Performed By: #### C BC #### [facility] [address] [place] [address] Dr. Jewel Rascon Platelet mean volume (Bld) [Entitic vol] 9.6 fL Normal 9.5-13.5 [facility] Comment on above: Performed By: #### C BC #### [facility] [address] [place] [address] Dr. Jewel Rascon PLT 186 103/ul Normal 150-450 [facility] Comment on above: Performed By: #### C BC #### [facility] [address] [place] [address] Dr. Jewel Rascon RBC 3.94 106/ul Critically low 4.20-5.40 [facility] Comment on above: Performed By: #### C BC #### [facility] [address] [place] [address] Dr. Jewel Rascon WBC 5.3 103/ul Normal 4.0-11.0 [facility] Comment on above: Performed By: #### C BC #### [facility] [address] [place] [address] Dr. Jewel Rascon LIPID PROFILEon 03-30-2022 CHOL-HDL RATIO NORM SEE BELOW Normal [facility] Comment on above: Result Comment: 3.3 - 4.4 LOW RISK 4.4 - 7.1 AVERAGE RISK 7.1 - 11.0 MODERATE RISK >11.0 HIGH RISK Performed By: #### L IPID, LIVER, BMP #### [facility] [address] [place] [address] Dr. Jewel Rascon Cholesterol [Mass/Vol] 192 mg/dL Normal <=200 Th [facility] Comment on above: Performed By: #### L IPID, LIVER, BMP #### [facility] [address] [place] [address] Dr. Jewel Rascon Cholesterol in HDL [Mass/Vol] 57 mg/dL Normal 40-60 [facility] Comment on above: Performed By: #### L IPID, LIVER, BMP #### [facility] [address] [place] [address] Dr. Jewel Rascon Cholesterol in LDL [Mass/Vol] 82.2 mg/dL Normal [facility] Comment on above: Performed By: #### L IPID, LIVER, BMP #### [facility] [address] [place] [address] Dr. Jewel Rascon Cholesterol.total/Choles terol in HDL [Mass ratio] 3.4 {ratio} Normal [facility] Comment on above: Performed By: #### L IPID, LIVER, BMP #### [facility] [address] [place] [address] Dr. Jewel Rascon HDL NORMAL > or = 60 mg/dl - LO W CARDIOVASCULAR RISK <40 mg/dl - HIGH CARDIOVASCULAR RISK Normal [facility] Comment on above: Performed By: #### L IPID, LIVER, BMP #### [facility] [address] [place] [address] Dr. Jewel Rascon LDL CALC NORMAL SEE BELOW Normal [facility] Comment on above: Result Comment: <100 mg/dl OPTIMAL 100 - 129 mg/dl NEAR OR ABOVE OPTIMAL 130 - 159 mg/dl BORDERLINE HIGH 160 - 189 mg/dl HIGH >190 mg/dl VERY HIGH Performed By: #### L IPID, LIVER, BMP #### [facility] [address] [place] [address] Dr. Jewel Rascon Triglyceride [Mass/Vol] 264 mg/dL Critically high <=150 [facility] Comment on above: Performed By: #### L IPID, LIVER, BMP #### [facility] [address] [address] [address] Jewel Rascon VLDL CALC 52.8 mg/dL Normal [facility] Comment on above: Performed By: #### L IPID, LIVER, BMP #### [facility] [address] [place] [address] Dr. Jewel Rascon LIVER PROFILEon 03-30-2022 Albumin [Mass/Vol] 3.9 g/dL Normal 3.4-5.0 [facility] Comment on above: Performed By: #### L IPID, LIVER, BMP #### [facility] [address] [place] [address] Dr. Jewel Rascon Albumin/Globulin [Mass ratio] 1.1 {ratio} Normal [facility] Comment on above: Performed By: #### L IPID, LIVER, BMP #### [facility] [address] [place] [address] Dr. Jewel Rascon ALP [Catalytic activity/Vol] 150 U/L Critically high 46-116 [facility] Comment on above: Performed By: #### L IPID, LIVER, BMP #### [facility] [address] [place] [address] Dr. Jewel Rascon ALT [Catalytic activity/Vol] 31 U/L Normal 14-59 [facility] Comment on above: Performed By: #### L IPID, LIVER, BMP #### [facility] [address] [place] [address] Dr. Jewel Rascon AST [Catalytic activity/Vol] 27 U/L Normal 15-37 [facility] Comment on above: Performed By: #### L IPID, LIVER, BMP #### [facility] [address] [place] [address] Dr. Jewel Rascon BILI, CONJUGATED 0.1 mg/dL Normal 0.0-0.2 [facility] Comment on above: Performed By: #### L IPID, LIVER, BMP #### [facility] [address] [place] [address] Dr. Jewel Rascon Bilirubin [Mass/Vol] 0.2 mg/dL Normal 0.2-1.0 [facility] Comment on above: Performed By: #### L IPID, LIVER, BMP #### [facility] [address] [address] [address] Jewel Rascon Globulin (S) [Mass/Vol] 3.6 g/dL Normal T [facility] Comment on above: Performed By: #### L IPID, LIVER, BMP #### [facility] [address] [address] [address] Jewel Rascon Protein [Mass/Vol] 7.5 g/dL Normal 6.4-8.2 [facility] Comment on above: Performed By: #### L IPID, LIVER, BMP #### [facility] [address] [place] [address] Dr. Jewel Rascon PROF CHEM 8 (BAS METB)on Anion gap [Moles/Vol] 16.7 mmol/L Normal [facility] Comment on above: Performed By: #### L IPID, LIVER, BMP #### [facility] [address] [address] [address] Jeewl Rascon Calcium [Mass/Vol] 9.4 mg/dL Normal 8.5-10.1 [facility] Comment on above: Performed By: #### L IPID, LIVER, BMP #### [facility] [address] [address] [address] Jewel Rascon Chloride [Moles/Vol] 108 mmol/L Critically high 98-107 [facility] Comment on above: Performed By: #### L IPID, LIVER, BMP #### [facility] [address] [address] [address] Jewel Rascon CO2 [Moles/Vol] 20.5 mmol/L Critically low 21.0-32.0 [facility] Comment on above: Performed By: #### L IPID, LIVER, BMP #### [facility] [address] [address] [address] Jewel Rascon Creatinine [Mass/Vol] 1.09 mg/dL Critically high 0.55-1.02 [facility] Comment on above: Performed By: #### L IPID, LIVER, BMP #### [facility] [address] [address] [address] Jewel Rascon EGFR-AF MOSOTHO >60 Normal >=60 [facility] Comment on above: Performed By: #### L IPID, LIVER, BMP #### [facility] [address] [address] [address] Jewel Rascon EGFR-NON AF MOSOTHO 51 mL/min/1.73m2 Critically low >=60 [facility] Comment on above: Performed By: #### L IPID, LIVER, BMP #### [facility] [address] [place] [address] Dr. Jewel Rascon Glucose [Mass/Vol] 108 mg/dL Critically high 74-106 T [facility] Comment on above: Performed By: #### L IPID, LIVER, BMP #### [facility] [address] [place] [address] Dr. Jewel Rascon Potassium [Moles/Vol] 4.2 mmol/L Normal 3.5-5.1 [facility] Comment on above: Performed By: #### L IPID, LIVER, BMP #### [facility] [address] [place] [address] Dr. Jewel Rascon Sodium [Moles/Vol] 141 mmol/L Normal 136-145 [facility] Comment on above: Performed By: #### L IPID, LIVER, BMP #### [facility] [address] [place] [address] Dr. Jewel Rascon Urea nitrogen [Mass/Vol] 14.0 mg/dL Normal 7.0-18.0 [facility] Comment on above: Performed By: #### L IPID, LIVER, BMP #### [facility] [address] [place] [address] Dr. Jewel Rascon Urea nitrogen/Creatinine [Mass ratio] 12.8 mg/mg Normal [facility] Comment on above: Performed By: #### L IPID, LIVER, BMP #### [facility] [address] [place] [address] Dr. Jewel Rascon VIT D 25-[place] LABCORPon 2021 Vitamin D, 25-Hydroxy 50.9 ng/mL Normal 30.0-100.0 [facility] Comment on above: Result Comment: Stefanie min D deficiency has been defined by the [place] [employer] and an Endocrine Society practice guideline as a level of serum 25-OH vitamin D less than 20 ng/mL (1,2). The Endocrine Society went on to further define vitamin D insufficiency as a level between 21 and 29 ng/mL (2). 1. IOM ([place] [employer]). 2010. Dietary reference intakes for calcium and D. [place]: The National Academies Press. 2. Lety MF, Vipin NC, Elke TERESA, et al. Evaluation, treatment, and prevention of vitamin D deficiency: an Endocrine Society clinical practice guideline. JCEM. 2010; 96(7):1911-30. Performed By: #### V ITADLC #### [facility] [address] [address] [address] Jewel Rascon FREE T4on 02-27-2022 Free T4 [Mass/Vol] 0.80 ng/dL Normal 0.76-1.46 [facility] Comment on above: Performed By: #### F T4 #### [facility] [address] [place] [address] Dr. Jewel Rascon TSHon 02-27-2022 TSH 2.639 uIU/mL Normal 0.358-3.740 [facility] Comment on above: Performed By: #### H EPBSRF #### [facility] [address] [address] [address] Jewel Rascon URIC ACID SERUMon 02-27-2022 Urate [Mass/Vol] 8.7 mg/dL Critically high 2.6-6.0 [facility] Comment on above: Performed By: #### H EPBSRF #### [facility] [address] [place] [address] Dr. Jewel Rascon Coding Summary.on 08-17-2018 Coding Summary. CODING DATE: 019 [facility] STATUS: Home (Routine DC) PAYOR: Medicare APC [...] Stokes CphT Date Saved: 08/17/2018 07:12 am [facility] US LE Venous Duplex Lefton [...] Bajwa MD Transcribed by: DWIGHT Technologist: ALO [facility] Cult,Funguson 12-03-2017 Cult,Fungus Specimen Description .HAND Performed at [address] [address] Special Requests NOT REPORTEDCulture NO GROWTH 30 DAYS Performed at [address] [address] Report Status FINAL 12/03/2017 [facility] Comment on above: Performed By: #### C DP, CP, TSH, LIPR ####[address] [address] #### T3, T4 ####[address] [address] DISCHARGE SUMMARYon 11-06-19 18 DISCHARGE SUMMARY [address] [address] DISCHARGE SUMMARYPATIENT NAME: ROSENDA ALEXANDER : 1960MED REC NO: [id number] [facility]: [id number] ADMIT DATE: 10/30/2017PROVIDER: Paul Bucklye DISCH DATE:HISTORY OF PRESENTING ILLNESS AND REASON FOR CURRENT ADMISSION: Thepatient is a 57-year-old female who is feeling depressed and sad, havingsuicidal thoughts and is planning to kill himself by inhaling fumes fromcar and . She is also drinking and she had long-term history of alcoholdependence. She had recent DUI that is her fifth or sixth one and she isgoing to go to senior care for it.PAST PSYCHIATRIC HISTORY: History of major [...] The patient is discharged. [facility]PAUL ANNID: 11/04/2017 22:01:58 SI/[id number]_IJob#: [id number] Doc#: [id number]: Normal [facility] Cult,Aerobe/Anaerobeon 11-04 Cult,Aerobe/Anaerobe Specimen Descriptio n .HAND Performed at [address] [address] Special Requests NOT REPORTEDDirect Exam MODERATE NEUTROPHILS FEW GRAM POSITIVE COCCI IN PAIRS Culture METHICILLIN RESISTANT STAPHYLOCOCCUS AUREUS LIGHT GROWTH NO ANAEROBIC ORGANISMS ISOLATED AT 5 DAYS Performed at [address] [address] Report Status FINAL 11/07/2017SUSCEPTIBILITYO rganism MRSAMethod MICPenicillin >=0.5 RESISTANTCefoxitin Screen NOT REPORTEDCiprofloxacin NOT REPORTEDClindamycin <=0.25 SUSCEPTIBLEErythromycin 0.5 SUSCEPTIBLEGentamicin <=0.5 SUSCEPTIBLEInduced Clind Resist NOT REPORTEDLevofloxacin 1 SUSCEPTIBLELinezolid NOT REPORTEDMoxifloxacin NOT REPORTEDNitrofurantoin NOT REPORTEDOxacillin >=4 RESISTANTSynercid NOT REPORTEDRifampin NOT REPORTEDTetracycline <=1 SUSCEPTIBLETigecycline NOT REPORTEDTrimethoprim/Sulf a <=10 SUSCEPTIBLEVancomycin 1 SUSCEPTIBLE Normal [facility] Comment on above: Performed By: #### C DP, CP, TSH, LIPR ####[address] [address] #### T3, T4 ####[place] [address] APTTon 11-02-2017 aPTT 23.8 s Normal 23.0-31.0 [facility] Comment on above: Result Comment: IV H eparin Therapy Range: 64.3-87.8Performed at [address] [address] Performed By: #### C DP, CP, TSH, LIPR ####[address] [address] #### T3, T4 ####[facility] [facility] [place] [address] CBCon 11-02-2017 Erythrocyte distribution width Auto Ratio (RBC) 13.6 % Normal 11.5-14.9 [facility] Comment on above: Performed By: #### C BC, PT, PTT ####[facility] [place] [address] Erythrocytes (RBC) 3.73 10*6/uL Low 4.0-5.2 [facility] Comment on above: Performed By: #### C BC, PT, PTT ####[facility] [place] [address] Hematocrit (HCT) 34.2 % Low 36-46 [facility] Comment on above: Performed By: #### C BC, PT, PTT ####[facility] [place] [address] Hemoglobin mass conc (Bld) 11.1 g/dL Low 12.0-16.0 [facility] Comment on above: Performed By: #### C BC, PT, PTT ####[facility] [place] [address] MCH 29.7 pg Normal 26-34 [facility] Comment on above: Performed By: #### C BC, PT, PTT ####[facility] [place] [address] MCHC mass conc (RBC) 32.4 g/dL Normal 31-37 [facility] Comment on above: Performed By: #### C BC, PT, PTT ####[facility] [place] [address] MCV 91.7 fL Normal 80-100 [facility] Comment on above: Performed By: #### C BC, PT, PTT ####[address] [place] [address] Platelet mean volume (PMV) 8.1 fL Normal 6.0-12.0 [facility] Comment on above: Result Comment: Perf ormed at [address] [place] [address] Performed By: #### C BC, PT, PTT ####[address] [address] Platelets 208 10*3/uL Normal 150-450 [facility] Comment on above: Performed By: #### C BC, PT, PTT ####[address] [address] WBC (Leukocytes) 7.5 10*3/uL Normal 3.5-11.0 [facility] Comment on above: Performed By: #### C BC, PT, PTT ####[address] [address] Erythrocytes (RBC) NOT REPORTED Normal [facility] Comment on above: Performed By: #### C BC, PT, PTT ####[address] [address] PTon 11-02-2017 INR Coag RelTime (PPP) 0.9 {INR} Normal [facility] Comment on above: Result Comment: Non- therapeutic Range: INR = 0.9-1.2Therapeutic Range: Moderate Anticoagulant Intensity: INR = 2.0-3.0 High Anticoagulant Intensity: INR = 2.5-3.5Performed at [address] [address] Performed By: #### C DP, CP, TSH, LIPR ####[address] [address] #### T3, T4 ####[facility], [place] [address] Prothrombin time (PT) Coag time (PPP) 9.4 s Low 9.7-12.0 [facility] Comment on above: Performed By: #### C DP, CP, TSH, LIPR ####[facility] [place] [address] #### T3, T4 ####[address] [address] Lipid Profileon 11-01-2017 Cholesterol to HDL Ratio 1.7 {ratio} Normal <5 [facility] Comment on above: Performed By: #### L IPR ####[address] [address] HDL Cholesterol 132 mg/dL Normal >40 [facility] Comment on above: Result Comment: HDL Guidelines: <40 Undesirable 40-59 Borderline >59 Desirable Performed By: #### L IPR ####[facility] [place] [address] LDL Cholesterol 64 mg/dL Normal 0-130 [facility] Comment on above: Result Comment: LDL Guidelines: <100 Desirable 100-129 Near to/above Desirable 130-159 Borderline >159 UndesirableDirect (measured) LDL and calculated LDL are not interchangeable tests. Performed By: #### L IPR ####[facility] [place] [address] Cholesterol 218 mg/dL High <200 [facility] Comment on above: Result Comment: Chol esterol Guidelines: <200 Desirable 200-240 Borderline >240 Undesirable Performed By: #### L IPR ####[address] [place] [address] Triglyceride 108 mg/dL Normal <150 [facility] Comment on above: Result Comment: Trig lyceride Guidelines: <150 Desirable 150-199 Borderline 200-499 High >499 Very high Based on AHA Guidelines for fasting triglyceride, April 2012.Performed at [facility] [address] [place] [address] Performed By: #### L IPR ####[facility] [place] [address] Cholesterol in VLDL mass conc NOT REPORTED Normal 08-21 [facility] Comment on above: Performed By: #### L IPR ####[facility] [place] [address] XR HAND LEFT (2 VIEWS)on eGFR (non-black) EXAMINATION:2 VIEWS LEFT HAND11/01/2017 6:59 pmCOMPARISON:None.HISTORY :ORDERING SYSTEM PROVIDED HISTORY: pus draining from palm, check for foreignbodyTECHNOLOGIST PROVIDED HISTORY:Reason for exam:->pus draining from palm, check for foreign bodyOrdering Physician Provided Reason for Exam: Absess or wound on palm of [facility].FINDINGS:No radiopaque foreign body or subcutaneous gas.There is no evidence of acute fracture. There is normal alignment. No acutejoint abnormality. No focal osseous lesion. No focal soft tissue abnormality.IMPRESSION: No acute osseous abnormality.Interpreted by:JIMENA Garrettigned by:Teodoro Manley MD11/01/17inal result Normal [facility] CBC with Diffon 10-31-2017 Abs. Basophil 0.10 k/uL Normal 0.0-0.2 [facility] Comment on above: Result Comment: Perf ormed at [facility] [address] [place] [address] Performed By: #### C DP, CP, TSH, LIPR ####[facility] [place] [address] #### T3, T4 ####[address] [place] [address] Abs.Neutrophil (Seg) 7.30 k/uL Normal 1.3-9.1 [facility] Comment on above: Performed By: #### C DP, CP, TSH, LIPR ####[address] [address] #### T3, T4 ####[address] [address] Basophils/100 WBC Auto (Bld) 1 % Normal 0-2 [facility] Comment on above: Performed By: #### C DP, CP, TSH, LIPR ####[facility] [place] [address] #### T3, T4 ####[address] [address] Eosinophils 0.10 10*3/uL Normal 0.0-0.4 [facility] Comment on above: Performed By: #### C DP, CP, TSH, LIPR ####[address] [address] #### T3, T4 ####[address] [address] Eosinophils/100 leukocytes 1 % Normal 0-4 [facility] Comment on above: Performed By: #### C DP, CP, TSH, LIPR ####[address] [address] #### T3, T4 ####[address] [address] Erythrocyte distribution width Auto Ratio (RBC) 13.7 % Normal 11.5-14.9 [facility] Comment on above: Performed By: #### C DP, CP, TSH, LIPR ####[address] [address] #### T3, T4 ####[address] [address] Erythrocytes (RBC) 4.17 10*6/uL Normal 4.0-5.2 [facility] Comment on above: Performed By: #### C DP, CP, TSH, LIPR ####[facility] [place] [address] #### T3, T4 ####[address] [address] Hematocrit (HCT) 38.0 % Normal 36-46 [facility] Comment on above: Performed By: #### C DP, CP, TSH, LIPR ####[address] [address] #### T3, T4 ####[address] [address] Hemoglobin mass conc (Bld) 12.3 g/dL Normal 12.0-16.0 [facility] Comment on above: Performed By: #### C DP, CP, TSH, LIPR ####[address] [address] #### T3, T4 ####[address] [address] Lymphocytes 1.70 10*3/uL Normal 1.0-4.8 [facility] Comment on above: Performed By: #### C DP, CP, TSH, LIPR ####[facility] [place] [address] #### T3, T4 ####[address] [address] Lymphocytes/100 leukocytes 17 % Low 24-44 [facility] Comment on above: Performed By: #### C DP, CP, TSH, LIPR ####[facility] [place] [address] #### T3, T4 ####[address] [address] MCH 29.5 pg Normal 26-34 [facility] Comment on above: Performed By: #### C DP, CP, TSH, LIPR ####[address] [address] #### T3, T4 ####[address] [address] MCHC mass conc (RBC) 32.4 g/dL Normal 31-37 [facility] Comment on above: Performed By: #### C DP, CP, TSH, LIPR ####[address] [address] #### T3, T4 ####[address] [address] MCV 91.1 fL Normal 80-100 [facility] Comment on above: Performed By: #### C DP, CP, TSH, LIPR ####[address] [address] #### T3, T4 ####[address] [address] Monocytes 1.00 10*3/uL Normal 0.1-1.3 [facility] Comment on above: Performed By: #### C DP, CP, TSH, LIPR ####[address] [address] #### T3, T4 ####[address] [address] Monocytes/100 leukocytes 10 % High 1-7 [facility] Comment on above: Performed By: #### C DP, CP, TSH, LIPR ####[address] [address] #### T3, T4 ####[address] [address] Neutrophil (Seg) 71 % High 36-66 [facility] Comment on above: Performed By: #### C DP, CP, TSH, LIPR ####[address] [address] #### T3, T4 ####[address] [address] Platelet mean volume (PMV) 8.0 fL Normal 6.0-12.0 [facility] Comment on above: Performed By: #### C DP, CP, TSH, LIPR ####[address] [address] #### T3, T4 ####[address] [address] Platelets 271 10*3/uL Normal 150-450 [facility] Comment on above: Performed By: #### C DP, CP, TSH, LIPR ####[address] [address] #### T3, T4 ####[address] [address] WBC (Leukocytes) 10.2 10*3/uL Normal 3.5-11.0 [facility] Comment on above: Performed By: #### C DP, CP, TSH, LIPR ####[address] [address] #### T3, T4 ####[address] [address] Auto Diff Performed NOT REPORTED Normal [facility] Comment on above: Performed By: #### C DP, CP, TSH, LIPR ####[address] [address] #### T3, T4 ####[address] [address] Erythrocyte morphology NOT REPORTED Normal [facility] Comment on above: Performed By: #### C DP, CP, TSH, LIPR ####[address] [address] #### T3, T4 ####[address] [address] Erythrocytes (RBC) NOT REPORTED Normal [facility] Comment on above: Performed By: #### C DP, CP, TSH, LIPR ####[address] [address] #### T3, T4 ####[address] [address] Granulocytes/100 WBC (Bld) NOT REPORTED Normal 0.00-0.30 [facility] Comment on above: Performed By: #### C DP, CP, TSH, LIPR ####[address] [place] [address] #### T3, T4 ####[address] [address] Immature granulocytes #/vol (Bld) NOT REPORTED Normal 0 [facility] Comment on above: Performed By: #### C DP, CP, TSH, LIPR ####[address] [address] #### T3, T4 ####[address] [address] Platelets NOT REPORTED Normal [facility] Comment on above: Performed By: #### C DP, CP, TSH, LIPR ####[address] [address] #### T3, T4 ####[address] [address] WBC Morphology NOT REPORTED Normal [facility] Comment on above: Performed By: #### C DP, CP, TSH, LIPR ####[address] [address] #### T3, T4 ####[address] [address] Comp Metabolic Profon 2017 (cont.) Normal [facility] Comment on above: Result Comment: Aver age GFR for 50-59 years old: 93 mL/min/1.73sq mChronic Kidney Disease: <60 mL/min/1.73sq mKidney failure: <15 mL/min/1.73sq meGFR calculated using average adult body mass. Additional eGFR calculator available at:http://www.[employer]/multiple_crcl_2011.htmPerformed at [facility] [address] [place] [address] Performed By: #### C DP, CP, TSH, LIPR ####[address] [place] [address] #### T3, T4 ####[address] [place] [address] Alanine aminotransferase (ALT) 21 U/L Normal 5-33 [facility] Comment on above: Performed By: #### C DP, CP, TSH, LIPR ####[address] [place] [address] #### T3, T4 ####[address] [place] [address] Albumin 4.2 g/dL Normal 3.5-5.2 [facility] Comment on above: Performed By: #### C DP, CP, TSH, LIPR ####[address] [place] [address] #### T3, T4 ####[address] [address] Alkaline Phos 109 U/L High 35-104 [facility] Comment on above: Performed By: #### C DP, CP, TSH, LIPR ####[address] [place] [address] #### T3, T4 ####[address] [address] Anion gap 11 mmol/L Normal 9-17 [facility] Comment on above: Performed By: #### C DP, CP, TSH, LIPR ####[facility] [place] [address] [place] [address] #### T3, T4 ####[address] [address] Aspartate aminotransferase (AST) 23 U/L Normal <32 [facility] Comment on above: Performed By: #### C DP, CP, TSH, LIPR ####[address] [place] [address] #### T3, T4 ####[address] [address] Bilirubin Ql (U) 0.22 mg/dL Low 0.3-1.2 [facility] Comment on above: Performed By: #### C DP, CP, TSH, LIPR ####[address] [place] [address] #### T3, T4 ####[address] [address] Calcium 9.1 mg/dL Normal 8.6-10.4 [facility] Comment on above: Performed By: #### C DP, CP, TSH, LIPR ####[facility] [place] [address] #### T3, T4 ####[address] [address] Chloride 100 mmol/L Normal 98-107 [facility] Comment on above: Performed By: #### C DP, CP, TSH, LIPR ####[address] [address] #### T3, T4 ####[address] [address] CO2 26 mmol/L Normal 20-31 [facility] Comment on above: Performed By: #### C DP, CP, TSH, LIPR ####[facility] [place] [address] #### T3, T4 ####[address] [address] Creatinine 0.63 mg/dL Normal 0.50-0.90 [facility] Comment on above: Performed By: #### C DP, CP, TSH, LIPR ####[facility] [place] [address] #### T3, T4 ####[address] [address] eGFR (non-black) mL/min/{1.73_m2} Normal >60 [facility] Comment on above: Performed By: #### C DP, CP, TSH, LIPR ####[facility] [place] [address] #### T3, T4 ####[facility] [place] [address] Glucose mass conc 89 mg/dL Normal 70-99 [facility] Comment on above: Performed By: #### C DP, CP, TSH, LIPR ####[facility] [place] [address] #### T3, T4 ####[facility] [place] [address] Potassium molar conc 4.0 mmol/L Normal 3.7-5.3 [facility] Comment on above: Performed By: #### C DP, CP, TSH, LIPR ####[address] [address] #### T3, T4 ####[address] [address] Protein 6.9 g/dL Normal 6.4-8.3 [facility] Comment on above: Performed By: #### C DP, CP, TSH, LIPR ####[address] [address] #### T3, T4 ####[address] [address] Sodium 137 mmol/L Normal 135-144 [facility] Comment on above: Performed By: #### C DP, CP, TSH, LIPR ####[address] [address] #### T3, T4 ####[address] [address] Urea nitrogen 16 mg/dL Normal 6-20 [facility] Comment on above: Performed By: #### C DP, CP, TSH, LIPR ####[facility] [place] [address] #### T3, T4 ####[address] [address] Albumin/Globulin Ratio NOT REPORTED Normal 1.0-2.5 [facility] Comment on above: Performed By: #### C DP, CP, TSH, LIPR ####[facility] [place] [address] [place] [address] #### T3, T4 ####[address] [address] BUN/CRE Ratio NOT REPORTED Normal 9-20 [facility] Comment on above: Performed By: #### C DP, CP, TSH, LIPR ####[facility] [place] [address] [place] [address] #### T3, T4 ####[address] [address] Staging: NOT REPORTED Normal [facility] Comment on above: Performed By: #### C DP, CP, TSH, LIPR ####[address] [place] [address] #### T3, T4 ####[address] [address] Lipid Profileon 10-31-2017 Cholesterol to HDL Ratio 1.5 {ratio} Normal <5 [facility] Comment on above: Performed By: #### C DP, CP, TSH, LIPR ####[address] [place] [address] #### T3, T4 ####[address] [address] HDL Cholesterol 142 mg/dL Normal >40 [facility] Comment on above: Result Comment: HDL Guidelines: <40 Undesirable 40-59 Borderline >59 Desirable Performed By: #### C DP, CP, TSH, LIPR ####[facility] [place] [address] #### T3, T4 ####[address] [address] LDL Cholesterol 52 mg/dL Normal 0-130 [facility] Comment on above: Result Comment: LDL Guidelines: <100 Desirable 100-129 Near to/above Desirable 130-159 Borderline >159 UndesirableDirect (measured) LDL and calculated LDL are not interchangeable tests. Performed By: #### C DP, CP, TSH, LIPR ####[address] [address] #### T3, T4 ####[address] [address] Cholesterol 220 mg/dL High <200 [facility] Comment on above: Result Comment: Chol esterol Guidelines: <200 Desirable 200-240 Borderline >240 Undesirable Performed By: #### C DP, CP, TSH, LIPR ####[address] [address] #### T3, T4 ####[address] [address] Triglyceride 131 mg/dL Normal <150 [facility] Comment on above: Result Comment: Trig lyceride Guidelines: <150 Desirable 150-199 Borderline 200-499 High >499 Very high Based on AHA Guidelines for fasting triglyceride, April 2012.Performed at [facility] [address] [place] [address] Performed By: #### C DP, CP, TSH, LIPR ####[address] [address] #### T3, T4 ####[address] [address] Cholesterol in VLDL mass conc NOT REPORTED Normal 08-21 [facility] Comment on above: Performed By: #### C DP, CP, TSH, LIPR ####[facility] [place] [address] #### T3, T4 ####[address] [address] Thyroid Stim. Horm.on 2017 Thyroid stimulating hormone (TSH) 5.28 m[IU]/L High 0.30-5.00 [facility] Comment on above: Result Comment: Perf ormed at [facility] [address] [place] [address] Performed By: #### C DP, CP, TSH, LIPR ####[facility] [place] [address] #### T3, T4 ####[address] [address] Thyroxine T4on 10-31-2017 Thyroxine (T4) 6.6 ug/dL Normal 4.5-12.0 [facility] Comment on above: Result Comment: Perf ormed at [address] [address] Performed By: #### C DP, CP, TSH, LIPR ####[facility] [place] [address] #### T3, T4 ####[address] [address] Triiodothyronine T3on 2017 Triiodothyronine T3 143 ng/dL Normal 80-200 [facility] Comment on above: Result Comment: Perf ormed at [address] [id number] [phone] Performed By: #### C DP, CP, TSH, LIPR ####[facility] [facility] [place] [address] #### T3, T4 ####[address] [place] [address] PSYCHIATRIC EVALUATIONon PSYCHIATRIC EVALUATION [address] [address] PSYCHIATRIC EVALUATIONPATIENT NAME: ROSENDA ALEXANDER : 1960MED REC NO: [id number] ROOM: 0235ACCOUNT NO: [id number] ADMIT DATE: 10/30/2017PROVIDER: Paul CasillasurtiCOMPREHENSIVE PSYCHIATRIC EVALUATIONHISTORY [...] life. With this, she is admitted from [facility].PAST PSYCHIATRIC HISTORY: History of major depressive disorder [...] STAY: 10 days.PAUL INDURTID: 10/30/2017 17:32:31 SI/V_OPRIT_INJob#: [id number] Doc#: [id number]: Normal [facility] Coding Summary.on 09-12-2017 Coding Summary. CODING DATE: 018 [facility] STATUS: Home (Routine DC) PAYOR: Medicare ADMIT [...] Bowles Date Saved: 09/12/2017 06:55 am Normal [facility] Cortisolon 09-12-2017 Cortisol mass conc 14.9 microgram/dL [facility] Comment on above: Result Comment: Chester isol AM 6.2 - 19.4 Cortisol PM 2.3 - 11.9 Performed at: [facility] [id number] PhD Wilda Gunter Performed By: #### 2 424772, 4268869, 74929569, 0717348, 34719882, 9047903, 1857327, 2712195, 8807299, 3249401, 8301386, 6149262, 93529858, 9183856, 9738859 #### [facility] [address] [place] [address] DHEASon 09-12-2017 Dehydroepiandrosterone sulfate (DHEA-S) mass conc 54.3 microgram/dL 29.4-220.5 [facility] Comment on above: Result Comment: Perf ormed at: [address] [id number] PhD Wilda Gunter Performed By: #### 2 643132, 7768196, 06732447, 0644341, 85761032, 7151059, 7504387, 4662920, 2304960, 4684539, 3513902, 8884632, 54209192, 0835493, 1481642 #### [facility] [address] [place] [address] Estradiolon 09-12-2017 Estradiol (E2) mass conc pg/mL [facility] Comment on above: Result Comment: Adul t Female: Follicular phase 12.5 - 166.0 Ovulation phase 85.8 - 498.0 Luteal phase 43.8 - 211.0 Postmenopausal <6.0 - 54.7 1st trimester 215.0 - >4300.0 Girls (1-10 years) 6.0 - 27.0 Adeel ECLIA methodology Performed at: [address] [id number] PhD Wilda Gunter Performed By: #### 2 426148, 2225697, 38155028, 5510682, 99649814, 1382160, 3497444, 9144306, 5309805, 4813851, 1251578, 8355194, 52720695, 8688671, 6492404 #### [facility] [address] [place] [address] Testost Totalon 09-12-2017 Testosterone mass conc 12 ng/dL 3-41 [facility] Comment on above: Result Comment: Perf ormed at: [id number] [place], [place] [id number] PhD Wilda Gunter Performed By: #### 2 641770, 2541616, 04955427, 8266776, 17572040, 5681923, 2481674, 8788537, 5600441, 6085641, 2595666, 4916776, 15650080, 5356986, 6160528 #### [facility] [address] [place] [address] Auto Diffon 09-11-2017 Basophils #/vol (Bld) 0.7 % Normal 0.0-2.0 [facility] Comment on above: Order Comment: Order Added by Discern Expert. Performed By: #### 2 950429, 9275259, 59734457, 2711342, 74151048, 3406826, 9339215, 8251708, 3851924, 3864911, 7261783, 1722397, 95886073, 5982138, 4951278 #### [facility] [address] [place] [address] Basophils/Leukocytes Auto Pure number fraction (Bld) 0.0 E9/L Normal 0.0-0.2 [facility] Comment on above: Order Comment: Order Added by Discern Expert. Performed By: #### 2 216636, 3540019, 26171425, 4518297, 66709431, 0876884, 6344809, 1167531, 6028553, 1551925, 9395068, 5809777, 66242369, 3500307, 4797361 #### [facility] [address] [place] [address] Eosinophils/100 WBC (Bld) 3.1 % Normal 0.0-8.0 [facility] Comment on above: Order Comment: Order Added by Discern Expert. Performed By: #### 2 308965, 0942586, 11731659, 7523613, 95832285, 6902176, 4466663, 6984843, 4560476, 5767676, 9291323, 7797735, 62800796, 4556607, 3419385 #### [facility] [address] [place] [address] Eosinophils/Leukocytes Auto Pure number fraction (Bld) 0.2 E9/L Normal 0.0-0.5 [facility] Comment on above: Order Comment: Order Added by Discern Expert. Performed By: #### 2 617492, 7999969, 14138952, 6421899, 16716215, 3872888, 6881274, 7974777, 1349858, 1931959, 5849801, 8676079, 41658252, 9487252, 4419336 #### [facility] [address] [place] [address] Lymphocytes/100 WBC (Bld) 21.1 % Normal 14.0-50.0 [facility] Comment on above: Order Comment: Order Added by Discern Expert. Performed By: #### 2 424142, 3407299, 03302132, 8588945, 22020283, 6836403, 7597019, 9144034, 7868424, 2348623, 6175334, 8213820, 01870818, 8538653, 3920920 #### [facility] [address] [place] [address] Lymphocytes/Leukocytes Auto Pure number fraction (Bld) 1.1 E9/L Normal 1.0-4.0 [facility] Comment on above: Order Comment: Order Added by Discern Expert. Performed By: #### 2 154249, 8756700, 82101389, 8405829, 06639729, 9437979, 4404466, 1783371, 1080251, 9793836, 1777445, 1342517, 99993499, 9080320, 1637254 #### [facility] [address] [place] [address] Monocytes/100 WBC (Bld) 8.0 % Normal 4.0-14.0 [facility] Comment on above: Order Comment: Order Added by Discern Expert. Performed By: #### 2 863508, 8883775, 05502088, 8760414, 79653210, 1499736, 5848142, 8463579, 8470259, 8832687, 0947113, 2629139, 97422468, 6122798, 1330936 #### [facility] [address] [place] [address] Monocytes/Leukocytes Auto Pure number fraction (Bld) 0.4 E9/L Normal 0.2-1.0 [facility] Comment on above: Order Comment: Order Added by Discern Expert. Performed By: #### 2 995741, 7546924, 45605684, 7863904, 63963108, 1062532, 9252254, 5094966, 5123182, 8976000, 6148185, 0281290, 69071113, 1837354, 2729471 #### [facility] [address] [place] [address] Neutrophils/100 WBC (Bld) 67.1 % Normal 36.0-75.0 [facility] Comment on above: Order Comment: Order Added by Discern Expert. Performed By: #### 2 187868, 6742663, 47374736, 2183503, 49882127, 6311336, 0863129, 7170193, 6417657, 0053136, 7572214, 4765120, 19088264, 7146444, 5393762 #### [facility] [address] [place] [address] Neutrophils/Leukocytes Auto Pure number fraction (Bld) 3.5 E9/L Normal 2.0-7.5 [facility] Comment on above: Order Comment: Order Added by Discern Expert. Performed By: #### 2 934719, 2775474, 00643631, 7906981, 70935721, 5149578, 0768115, 0512017, 6082629, 3948448, 7922420, 2183051, 83977572, 7018690, 2575627 #### [facility] [address] [place] [address] CBC w/ Auto Diffon 8 Erythrocyte distribution width Ratio (RBC) 14.0 % Normal 10.9-14.2 [facility] Comment on above: Performed By: #### 2 471101, 2588756, 87191005, 4868655, 39122017, 0794060, 0875274, 5890139, 3840399, 5400680, 7050333, 4641683, 33426516, 6619615, 2522591 #### [facility] [address] [place] [address] Hematocrit Volume Fraction (Bld) 37.7 % Normal 34.0-46.0 [facility] Comment on above: Performed By: #### 2 518874, 4860834, 73135978, 1289558, 95544893, 1892934, 1302116, 9822361, 9392337, 2045206, 3427715, 3185585, 52930971, 2738980, 9190299 #### [facility] [address] [place] [address] Hemoglobin mass conc (Bld) 12.7 g/dL Normal 12.0-16.0 [facility] Comment on above: Performed By: #### 2 097502, 4815573, 51783356, 9717321, 65906255, 5997491, 7670421, 7805351, 5694435, 0982144, 3836410, 5395185, 66979030, 5494963, 5699785 #### [facility] [address] [place] [address] MCH Entitic mass (RBC) 31.5 pg Normal 27.0-34.0 [facility] Comment on above: Performed By: #### 2 911052, 3980636, 52271103, 3262480, 87008056, 2345045, 7310999, 5748657, 0247067, 7091578, 2388733, 5094799, 28322235, 2376846, 1112863 #### [facility] [address] [place] [address] MCHC mass conc (RBC) 33.8 g/dL Normal 31.4-39.3 [facility] Comment on above: Performed By: #### 2 139327, 8110374, 01484281, 0281946, 16239255, 1920033, 9704023, 5495626, 5494242, 0803319, 5362734, 2277051, 88049652, 8526964, 5825435 #### [facility] [address] [place] [address] MCV Entitic volume (RBC) 93.1 fL Normal 80.0-100.0 [facility] Comment on above: Performed By: #### 2 575456, 6784407, 03317158, 4647521, 88982865, 4633041, 8627588, 4512546, 8746758, 7361092, 7363380, 3904120, 08745581, 6152315, 0608207 #### [facility] [address] [place] [address] Platelet mean volume Entitic volume (Bld) 7.5 fL Normal 6.4-10.8 [facility] Comment on above: Performed By: #### 2 441602, 0290774, 55432881, 4745164, 62884533, 3995786, 1411382, 2437344, 1407019, 8081075, 3629006, 6424352, 58021783, 4934639, 1604428 #### [facility] [address] [place] [address] Platelets #/vol (Bld) 229.0 E9/L Normal 150.0-500.0 [facility] Comment on above: Performed By: #### 2 091794, 4646553, 81329130, 3008739, 95866384, 4584000, 1798502, 1973814, 6704444, 4080457, 5676101, 2117407, 67020591, 6790650, 4316004 #### [facility] [address] [place] [address] RBC #/vol (Bld) 4.0 E12/L Low 4.3-5.9 [facility] Comment on above: Performed By: #### 2 285515, 4598333, 90945456, 1366977, 84746797, 7312605, 9525720, 9021308, 4949332, 5893888, 4179025, 1583381, 99036996, 0162075, 4038722 #### [facility] [address] [place] [address] WBC corrected for nucl RBC Auto #/vol (Bld) 5.2 E9/L Normal 4.0-11.0 [facility] Comment on above: Performed By: #### 2 752681, 0545324, 24239441, 1210909, 24793685, 4432165, 6243903, 2167392, 6847199, 5936844, 7677667, 6233647, 96256325, 2953440, 0503183 #### [facility] [address] [place] [address] CMPon 09-11-2017 Albumin mass conc 1.4 g/dL Normal 1.1-2.2 [facility] Comment on above: Performed By: #### 2 406644, 6920238, 74395056, 3041599, 61265388, 4003924, 5797351, 6630916, 3238253, 5001433, 3570431, 3572077, 08942199, 9187341, 0840845 #### [facility] [address] [place] [address] Albumin mass conc 4.2 g/dL Normal 3.3-5.0 [facility] Comment on above: Performed By: #### 2 104722, 0537581, 36014932, 2262051, 08260405, 1196520, 6228722, 5395137, 0830038, 4591372, 2080765, 1583398, 67681537, 7519165, 2812939 #### [facility] [address] [place] [address] ALP enzyme act/vol 105 Int._Unit/L High 21-98 [facility] Comment on above: Performed By: #### 2 793622, 5859203, 82643058, 5331895, 02846425, 5202685, 5066746, 4028911, 2554764, 9626325, 0310598, 6691994, 86460267, 5183868, 3248734 #### [facility] [address] [place] [address] ALT No additional P-5'-P enzyme act/vol 18 Int._Unit/L Normal 6-46 [facility] Comment on above: Performed By: #### 2 728937, 8820960, 69264320, 7561431, 19699094, 3193509, 4995750, 9569139, 8451040, 8712998, 7874928, 5137072, 31405946, 4823925, 2129687 #### [facility] [address] [place] [address] Anion gap molar conc 11 mmol/L Normal 6-16 [facility] Comment on above: Performed By: #### 2 533791, 4805383, 71209211, 1699500, 13098368, 3055261, 9696980, 6925238, 5446778, 3078841, 7875891, 7376183, 87018381, 3448644, 6251641 #### [facility] [address] [place] [address] AST enzyme act/vol 26 Int._Unit/L Normal 5-43 [facility] Comment on above: Performed By: #### 2 480186, 4647321, 32347770, 9026177, 20936600, 5833362, 2933242, 3093175, 4426472, 6472177, 0063532, 8111028, 63304635, 3290307, 2154330 #### [facility] [address] [place] [address] Bilirubin mass conc 0.5 mg/dL Normal 0.0-1.1 [facility] Comment on above: Performed By: #### 2 567845, 6091065, 68684637, 5139068, 08765378, 9113449, 6711734, 0998238, 6041081, 6800842, 6383019, 0493077, 78278228, 5634213, 2090873 #### [facility] [address] [place] [address] Calcium mass conc 9.7 mg/dL Normal 8.9-11.1 [facility] Comment on above: Performed By: #### 2 356012, 1313551, 70336494, 5492468, 65657971, 4904753, 1987250, 7702577, 2114570, 1041987, 3274926, 5401529, 02204770, 0270069, 4044060 #### [facility] [address] [place] [address] Chloride molar conc 107 mmol/L Normal 101-111 [facility] Comment on above: Performed By: #### 2 145534, 7777739, 54907224, 3449480, 41121768, 2553886, 2427683, 0340714, 2066529, 4772756, 3099731, 9883900, 78775106, 5540335, 0590257 #### [facility] [address] [place] [address] CO2 molar conc 26 mmol/L Normal 21-31 [facility] Comment on above: Performed By: #### 2 850638, 0274036, 99363906, 5128630, 71467320, 8517298, 4683669, 5447522, 3622096, 3652804, 3385174, 0842234, 07667447, 6034013, 2100777 #### [facility] [address] [place] [address] Creatinine mass conc 0.6 mg/dL Normal 0.5-1.3 [facility] Comment on above: Performed By: #### 2 360678, 3322825, 41629445, 2662032, 40642864, 4287277, 5130519, 1763376, 3113755, 7658670, 1161165, 8733640, 97263411, 1250280, 9067530 #### [facility] [address] [place] [address] Globulin mass conc (S) 2.9 g/dL Normal 1.4-4.0 [facility] Comment on above: Performed By: #### 2 009750, 6669553, 97979039, 3497767, 35824250, 7612380, 2784674, 6017463, 7078226, 1051174, 9790030, 0610208, 78626975, 4584522, 7741639 #### [facility] [address] [place] [address] Glucose mass conc 88 mg/dL Normal 55-199 [facility] Comment on above: Result Comment: If t his glucose result represents a fasting glucose, interpretation should refer to the following reference range: 55-99 mg/dL Performed By: #### 2 792608, 2830527, 47114592, 2719886, 60670459, 7254526, 6809395, 2188138, 5935364, 0706735, 1666202, 6801962, 60200738, 5695800, 9996099 #### [facility] [address] [place] [address] Potassium molar conc 5.6 mmol/L High 3.5-5.3 [facility] Comment on above: Performed By: #### 2 426424, 0166842, 23978083, 0131025, 22708601, 7853087, 6737281, 7006744, 8166359, 6179950, 5506970, 1182848, 60491438, 5236542, 8944604 #### [facility] [address] [place] [address] Protein mass conc 7.1 g/dL Normal 6.0-7.8 [facility] Comment on above: Performed By: #### 2 900475, 4577138, 74237889, 7130016, 94511600, 3463513, 8069255, 7698800, 1415935, 7338629, 8338577, 5786448, 80434105, 0893007, 3492263 #### [facility] [address] [place] [address] Sodium molar conc 138 mmol/L Normal 135-145 [facility] Comment on above: Performed By: #### 2 720581, 7356253, 56619609, 9964436, 32814574, 1162220, 3988931, 6601571, 4677801, 2113041, 9132352, 6140041, 74363877, 9715132, 6016802 #### [facility] [address] [place] [address] Urea nitrogen mass conc 15 mg/dL Normal 5-21 [facility] Comment on above: Performed By: #### 2 662070, 1116334, 82315951, 4726759, 56900646, 3659614, 1217809, 3338361, 1959572, 0979364, 6295265, 9400804, 32606424, 8182777, 7614454 #### [facility] [address] [place] [address] Urea nitrogen/Creatinine mass ratio 25 No Units High - [facility] Comment on above: Performed By: #### 2 219295, 6485390, 28055829, 2135127, 84941858, 9261790, 6214158, 6433797, 9500432, 9098432, 5444723, 7130428, 87443710, 7983185, 6404527 #### [facility] [address] [place] [address] CRPon 09-11-2017 CRP mass conc mg/L Normal <=1.9 [facility] Comment on above: Performed By: #### 2 552173, 1276902, 59519095, 3096261, 90230704, 9537661, 5441009, 7949482, 1909936, 5027986, 5550065, 2752562, 89342969, 5057682, 9342267 #### [facility] [address] [place] [address] Free T4on 09-11-2017 T4 free mass conc 0.57 ng/dL Low 0.58-1.64 [facility] Comment on above: Performed By: #### 2 618590, 2754909, 76398605, 9824751, 56075657, 7735935, 7879700, 7741775, 8608425, 5189325, 0436990, 0099388, 71690597, 6423710, 1897986 #### [facility] [address] [place] [address] Lipid Panelon 09-11-2017 Cholesterol in HDL mass conc 126 mg/dL [facility] Comment on above: Result Comment: HDL > or equal to 60 mg/dL: Low cardiovascular risk HDL < 40 mg/dL : High cardiovascular risk Performed By: #### 2 214487, 8891593, 28839678, 3242094, 58376101, 9117695, 0812446, 8623318, 6449030, 1548816, 1836703, 8500463, 70066651, 1769094, 0393608 #### [facility] [address] [place] [address] Cholesterol in LDL mass conc 76 mg/dL Normal <=129 [facility] Comment on above: Performed By: #### 2 323668, 6634685, 35839991, 6039320, 71961306, 2528881, 6842855, 8009806, 8054054, 6548136, 8874598, 4138813, 45419100, 8451526, 3402059 #### [facility] [address] [place] [address] Cholesterol in VLDL mass conc 12 mg/dL Normal 7-40 [facility] Comment on above: Performed By: #### 2 235568, 3364555, 49291760, 8265416, 00542776, 3662530, 6129217, 6459604, 0651437, 8127533, 7615875, 8329617, 22805818, 4185645, 5673582 #### [facility] [address] [place] [address] Cholesterol mass conc 225 mg/dL High 120-200 [facility] Comment on above: Performed By: #### 2 058584, 5749980, 36540391, 1967172, 52310611, 5915397, 1672415, 5587272, 0953074, 0286929, 0473578, 7854109, 31839721, 9371252, 8888772 #### [facility] [address] [place] [address] Triglyceride mass conc 61 mg/dL Normal <=149 [facility] Comment on above: Performed By: #### 2 207939, 0317280, 91179786, 2953391, 01960846, 0555101, 6612498, 3549044, 1534315, 6566127, 7519832, 8833437, 60720719, 3804460, 0800852 #### [facility] [address] [place] [address] Progesteroneon 09-11-2017 Progesterone mass conc 0.30 ng/mL [facility] Comment on above: Result Comment: REFE RENCE RANGE Males 0.14-2.06 ng/mL Non- Females Follicular 0.10-0.60 ng/mL Luteal 3.00-17.5 ng/mL Midluteal 3.30-18.6 ng/mL Post-Menopausal 0.10-0.40 ng/mL First Trimester 8.30-66.5 ng/mL Second Trimester 18.9-66.1 ng/mL Third Trimester 35.8-312.4 ng/mL Performed By: #### 2 367081, 7898100, 89890186, 2093534, 43483833, 7112394, 1917165, 9495246, 3982168, 4331153, 1246358, 8314163, 45440218, 2941475, 2778331 #### [facility] [address] [place] [address] Sed Rate Automatedon 018 ESR Velocity (Bld) 13 mm/h Normal 0-34 [facility] Comment on above: Performed By: #### 2 373800, 5951960, 86084746, 7352516, 74374795, 5903670, 5884942, 0063735, 5962600, 0196431, 3690995, 4631869, 65493391, 9689931, 7335695 #### [facility] [address] [place] [address] TSHon 09-11-2017 Thyrotropin Qn 5.15 mcIU/mL Normal 0.34-5.60 [facility] Comment on above: Performed By: #### 2 055648, 0758934, 20555010, 6465938, 03538939, 2897149, 0881589, 6378850, 3869909, 1082252, 9301440, 8671992, 36892477, 9853290, 7105058 #### [facility] [address] [place] [address] Uric Acidon 09-11-2017 Urate mass conc 5.4 mg/dL Normal 2.2-7.4 [facility] Comment on above: Performed By: #### 2 922044, 1080220, 66363386, 6848452, 88389828, 8491613, 1782525, 6724775, 2483371, 2158502, 5847954, 5869207, 56777644, 4200367, 0355265 #### [facility] [address] [place] [address] eGFRon 09-11-2017 GFR/1.73 sq M predicted among blacks MDRD vol rate/area (S/P/Bld) mL/min/{1.73_m2} Normal >=59 [facility] Comment on above: Order Comment: Order added by Discern Expert. Result Comment: eGFR is race adjusted. AA=. Performed By: #### 2 221380, 1508379, 58673696, 4168061, 86793726, 7827421, 9254188, 5819682, 1855618, 9534805, 0137157, 1604147, 15869396, 8936020, 1645467 #### [facility] [address] [place] [address] GFR/1.73 sq M predicted among non-blacks MDRD vol rate/area (S/P/Bld) mL/min/{1.73_m2} Normal >=59 [facility] Comment on above: Order Comment: Order added by Discern Expert. Result Comment: Construction Equipment Mechanic leon kidney disease could be indicated at eGFR's of less than 60 mL/min/1.73m2. Kidney failure is indicated at less than 15 mL/min/1.73m2. Performed By: #### 2 074446, 2786302, 09560111, 3852714, 62510489, 6837850, 2226643, 8141541, 7619153, 7505000, 9131863, 8338472, 12104000, 6066565, 7954775 #### [facility] [address] [place] [address] Encounters Encounter Date Encounter Type Care Provider Facility Start: 01-10-2024 End: 01-10-2024 ambulatory CHEMA AICHHOLZ Not Available Start: 10-10-2023 End: 10-10-2023 ambulatory CHEMA AICHHOLZ Not Available Start: 07-10-2023 End: 07-10-2023 ambulatory CHEMA AICHHOLZ Not Available Start: 03-30-2022 End: 03-31-[address] DAVID MADRID Facility:[facility] Start: 02-27-2022 End: 02-28-2022 ambulatory PERNELL CHEMA AICHHOLZ Facility:[facility] Start: 08-09-2018 End: 08-10-2018 Patient encounter procedure Charli Laurent Facility:[facility] Start: 10-30-2017 End: 11-05-2017 Evaluation and management of inpatient PAUL V INDURTI [facility] Start: 09-11-2017 End: 09-12-2017 Patient encounter procedure Manav Lo Facility:[facility] Procedures Date Procedure Procedure Detail Performing Clinician [...] INDURTI Payers Date Payer Category Payer Medicare [id number] 1960 Medicare [id number] 1960 Unknown [id number] 2.16.84 [id number] 1960 Unknown [id number] 2.16.84 [id number] 1960 Unknown [id number] 2.16.84 [id number] 1960 Unknown [id number] 2.16.84 [id number] 1960 Unknown [id number] 2.16.84 [id number] 1960 Unknown [id number] 2.16.84 [id number] 1960 Unknown [id number] 2.16.840 .[id number] Summary Purpose Family History No Family History Records FoundNo Family History Records FoundNo Family History Records FoundNo Family History Records Found Advance Directives No Advanced Directives Records FoundNo Advanced Directives Records FoundNo Advanced Directives Records FoundNo Advanced Directives Records Found Additional Source Comments INFORMATION SOURCE (unrecogn ized section and content) DATE CREATED AUTHOR 01/09/2018 [facility] DATE CREATED AUTHOR AUTHOR'S ORGANIZ ATION 08/29/2018 [facility] DATE CREATED AUTHOR AUTHOR'S ORGANIZ ATION 11/14/2022 [facility] DATE CREATED AUTHOR AUTHOR'S ORGANIZ ATION 01/11/2024 [facility] FOR RECORDS PERTAINING TO PATIENTS [...] BE BASED ON THE PRIMARY CLINICAL RECORDS. [employer] provides no warranty or guarantee of the accuracy or completeness of information in this document.
--- NOTE | 2024-04-30 13:24 | CT_ITS ---
[address] [address] Patient Name: ROSENDA ALEXANDER MRN: [id number] date: 1960 Sex: F Assigned Patient Location: ER Current Patient Location: .[facility] Accession/Order Number: [id number] Exam Date: 04/30/2024 15:12 Report Date: 04/30/2024 16:07 At the request of: JEAN CLAUDE CARLOS Procedure: CT abdomen pelvis w con EXAMINATION: CT abdomen pelvis w con HISTORY: Abdominal pain ; lower abdominal pain for one month; nausea, vomiting, diarrhea COMPARISON: CT abdomen pelvis 01/02/2024 TECHNIQUE: Axial, Coronal, and Sagittal images were obtained without and/or with IV contrast as indicated by examination type. Dose reduction techniques were achieved by using automated exposure control and/or adjustment of mA and/or kV according to patient size and/or use of iterative reconstruction technique. FINDINGS: LUNG BASES: No visible pulmonary or pleural disease. LIVER: Marked fatty infiltration. BILIARY: Cholecystectomy. PANCREAS: No lesion, fluid collection, or abnormal duct dilatation. SPLEEN: Slightly enlarged, 12.9 cm. ADRENALS: No mass or enlargement. KIDNEYS: Stable benign-appearing right renal cyst. Mild cortical thinning bilaterally. No mass, obstruction, or calcification. BOWEL/MESENTERY: Slightly edematous wall thickening of cecum, ascending, and proximal transverse colon. Mild wall thickening of distal descending colon through rectum although this may be exaggerated by lack of distention. Unremarkable stomach and small bowel. AORTA/VASCULAR: No aneurysm or dissection. RETROPERITONEUM: No mass or adenopathy. LYMPH NODES: No adenopathy. URINARY BLADDER: No visible focal wall thickening, lesion, or calculus. PELVIC ORGANS: Calcified calcifications within uterus likely representing small leiomyoma. No visible mass. Pelvic organs appropriate for patient age. ABDOMINAL WALL: No mass or hernia. BONES: No bony lesion or fracture. OTHER: Negative. CT/CT abdomen pelvis w con IMPRESSION: 1. Mild wall thickening of the proximal and distal: Simple nonspecific but suggestive of colitis or inflammatory bowel disease. No significant surrounding inflammatory changes. No bowel obstruction or free fluid. 2. Marked fatty infiltration of the liver. 3. Mild splenomegaly; unchanged. Electronically authenticated by: PETTY MADERA Date: 04/30/2024 16:07
--- NOTE | 2024-04-30 13:34 | ECG_ITS ---
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
--- NOTE | 2024-04-30 13:34 | ED_ITS ---
HPI - Abdominal Pain General Chief Complaint: Abdominal Pain Stated Complaint: ABDOMINAL PAIN/GENERAL WEAKNESS Time Seen by Provider: 04/30/24 13:24 Source: patient Mode of arrival: walk-in Limitations: no limitations History of Present Illness HPI narrative: Patient is a 63-year-old female with a history of alcoholism who presents to the emergency department for a 1 month history of generalized abdominal pain as sociated with nausea, occasional vomiting and diarrhea. She was seen in this emergency department for the same in December and was found to have mild colitis. She states she has not had any alcohol in the last week. She complains of persistent nausea with no fevers, cough or congestion. She denies any blood in her stool. No urinary symptoms. She believes that she followed up with her doctor after her last visit to the ER with admission. She denies any additional testing or procedures since her last admission Related Data Home Medications ?Medication ?Instructions ?Recorded ?Confirmed clonidine HCl 0.2 mg tablet 0.2 mg PO Q12H 01/02/24 04/30/24 colchicine 0.6 mg tablet 0.6 mg PO BID 01/02/24 04/30/24 escitalopram oxalate 20 mg tablet 20 mg PO DAILY 01/02/24 04/30/24 metoprolol tartrate 25 mg tablet 12.5 mg PO Q12H 01/02/24 04/30/24 risperidone 1 mg tablet 1 mg PO DAILY 01/02/24 04/30/24 trazodone 100 mg tablet 100 mg PO DAILY 01/02/24 04/30/24 Previous Rx's ?Medication ?Instructions ?Recorded ciprofloxacin HCl 500 mg tablet 500 mg PO Q12H #14 tabs 04/30/24 famotidine 20 mg tablet (Pepcid) 20 mg PO BID #10 tabs 04/30/24 hyoscyamine sulfate 0.125 mg 0.125 mg PO Q6H PRN abdominal pain 04/30/24 tablet (Levsin) #12 tabs promethazine 25 mg tablet 25 mg PO Q6H PRN nausea and 04/30/24 vomiting #12 tabs Allergies Allergy/AdvReac Type Severity Reaction Status Date / Time Penicillins Allergy Mild Hives Verified 04/30/24 12:48 Review of Systems ROS Constitutional Denies: fever or chills Ears, nose, mouth, and throat Denies: throat pain or nasal congestion Cardiovascular Denies: chest pain Respiratory Denies: shortness of breath Gastrointestinal Reports: abdominal pain, nausea, vomiting and diarrhea Musculoskeletal Denies: back pain or neck pain Hematologic/Lymphatic Denies: easy bruising or easy bleeding PFSH FOR[facility]LY [facility], [facility] Medical History (Updated 04/30/24 @ 16:25 by ERICK Marie) Hypertension ?I10 - Essential (primary) hypertension (ICD-10) Alcohol abuse ?F10.10 - Alcohol abuse, uncomplicated (ICD-10) Transaminitis ?R74.01 - Elevation of levels of liver transaminase levels (ICD-10) Hypokalemia ?E87.6 - Hypokalemia (ICD-10) Tobacco dependence ?F17.200 - Nicotine dependence, unspecified, uncomplicated (ICD-10) Hypothyroidism ?E03.9 - Hypothyroidism, unspecified (ICD-10) Heart palpitations ?R00.2 - Palpitations (ICD-10) Anxiety ?F41.9 - Anxiety disorder, unspecified (ICD-10) Depression ?F32.A - Depression, unspecified (ICD-10) Gout ?M10.9 - Gout, unspecified (ICD-10) Family History (Updated 01/02/24 @ 21:32 by Niurka Willis RN) Other Family history of hypertension Family history of myocardial infarction Social History Within the past year, how often did you have a drink containing alcohol: 4 or more times a week Within the past year, how many standard drinks containing alcohol did you have on a typical day: 7 to 9 Within the past year, how often did you have six or more drinks on one occasion: daily or almost daily Total score: 10 Score interpretation: A score of 3 or more indicates drinking is likely to affect patient's safety. Smoking status: Current every day smoker Non-prescribed substance use: denies use Highest level of school completed/degree received: 10th grade In a typical week, how many times do you talk on the telephone with family, friends, or neighbors: twice per week How often do you get together with friends or relatives: twice per week How often do you attend jainism or yarsanism services: never Little interest or pleasure in doing things: not at all Feeling down, depressed, or hopeless: not at all Feel stressed/tense/nervous/anxious/difficulty sleeping: very much Do you think of yourself as: straight/heterosexual Gender Identity: female Exam Narrative Exam Narrative: Gen.: Awake, alert, in no distress Head: Normocephalic, atraumatic ENT: Moist mucous membranes Respiratory: No respiratory distress, lungs clear bilaterally Cardio: Regular rate and rhythm Gastrointestinal: Abdomen is soft, nondistended and minimally tender to palpation in the epigastrium with no guarding or rebound Extremities: Moves extremities equally Psych: Normal mood and affect Neuro: No focal neuro deficit Skin: Warm, dry, intact Constitutional Vital Signs, click to edit/add: Last Vital Signs Temp 98.4 F 04/30/24 12:48 Pulse 53 L 04/30/24 16:20 Resp 15 04/30/24 14:40 BP 122/71 04/30/24 16:15 Pulse Ox 99 04/30/24 16:20 O2 Del Method Room Air 04/30/24 12:48 Course Vital Signs Vital signs: Vital Signs Temperature 98.4 F 04/30/24 12:48 Pulse Rate 67 04/30/24 12:48 Respiratory Rate 18 04/30/24 12:48 Blood Pressure 138/82 04/30/24 12:48 Pulse Oximetry 99 04/30/24 12:48 Oxygen Delivery Method Room Air 04/30/24 12:48 Temperature 98.4 F 04/30/24 12:48 Pulse Rate 53 L 04/30/24 16:20 Respiratory Rate 15 04/30/24 14:40 Blood Pressure 122/71 04/30/24 16:15 Pulse Oximetry 99 04/30/24 16:20 Oxygen Delivery Method Room Air 04/30/24 12:48 MDM - Abdominal Pain MDM Narrative Medical decision making narrative: Patient was treated with IV fluids, Phenergan, Levsin, Pepcid. She had no episodes of emesis in the ER and is requesting ice water. Laboratory studies are stable, lactic acid is normal. Magnesium was slightly low so the patient was treated with magnesium sulfate in the ER. She is sipping on water and sleeping comfortably on reevaluation. CT shows slightly edematous bowel consistent with very mild colitis. Abdomen is soft and benign in the ER and the patient is discharged home, she will be placed on Cipro due to the CT finding, however given the length of her symptoms and ongoing issues, I suspect this may be inflammatory versus related to her alcohol use, we will avoid giving Flagyl due to her history of alcohol use. She was given a general surgery follow-up with her discharge for colonoscopy if she continues having the symptoms. Cipro, Levsin, Phenergan given for home. Return to the ER if symptoms change or worsen 1635: After the patient was discharged, she requested that we evaluate her ears, she states she has heard a bug in her left ear for some time now after an infestation at home . Right TM is visualized, no evidence of foreign body or insect in the right external canal. Left external canal with a small brown object against the TM, wax versus insect. Debrox was used to flush the ear with insect easily removed. SUPERVISED APC VISIT, PHYSICIAN ATTESTATION: Based on the medical record the care appears appropriate. ? Medical Records Attestation: I reviewed the patient's medical records. Lab Data Attestation: I reviewed the patient's lab results. Labs: Lab Results 04/30/24 04/30/24 Range/Units 13:40 14:19 WBC 5.1 (4.0-11.0) 10^3/uL RBC 3.81 L (4.20-5.40) 10^6/uL Hgb 12.5 (12.0-16.0) g/dL Hct 36.7 (36.0-48.0) % MCV 96.3 (81.0-99.0) fL MCH 32.8 (26.7-34.0) pg MCHC 34.1 (29.9-35.2) g/dL RDW 13.9 (11.0-15.0) % Plt Count 107 L (150-450) 10^3/uL MPV 12.0 (9.5-13.5) fL Neut % (Auto) 63.8 (43.0-75.0) % Lymph % (Auto) 22.9 (20.5-60.0) % [place] % (Auto) 9.9 (1.7-12.0) % Eos % (Auto) 1.2 (0.9-7.0) % Baso % (Auto) 0.6 (0.2-2.0) % Neut # (Auto) 3.2 (1.4-6.5) 10^3/uL Lymph # (Auto) 1.2 (1.2-3.8) 10^3/uL [place] # (Auto) 0.5 (0.3-0.8) 10^3/uL Eos # (Auto) 0.1 (0.0-0.7) 10^3/uL Baso # (Auto) 0.0 (0.0-0.1) 10^3/uL Abs Immat Gran (auto) 0.08 H (0.00-0.03) 10^3/uL Imm/Tot Granulo (auto) 1.6 H (0.0-0.5) % PT 12.2 H (9.0-11.6) sec INR 1.17 Sodium 133 L (136-145) mmol/L Potassium 3.4 L (3.5-5.1) mmol/L Chloride 99 (98-107) mmol/L Carbon Dioxide 23.6 (21.0-32.0) mmol/L Anion Gap 13.8 BUN 2.0 L (7.0-18.0) mg/dL Creatinine 0.87 (0.55-1.02) mg/dL Est GFR ( Amer) >60 (>=60 mL/min/1.73m^2) Est GFR (Non-Af Amer) >60 (>=60 mL/min/1.73m^2) BUN/Creatinine Ratio 2.3 Glucose 116 H (74-106) mg/dL Lactate 1.0 (0.4-2.0) mmol/L Calcium 8.9 (8.5-10.1) mg/dL Magnesium 1.5 L (1.8-2.4) mg/dL Total Bilirubin 0.6 (0.2-1.0) mg/dL AST 87 H (15-37) U/L ALT 56 (14-59) U/L Alkaline Phosphatase 173 H (46-116) U/L Troponin I High Sens 4.3 (4.0-51.3) pg/mL Total Protein 6.1 L (6.4-8.2) g/dL Albumin 2.9 L (3.4-5.0) g/dL Globulin 3.2 g/dL Albumin/Globulin Ratio 0.9 Lipase 46.0 (16.0-77.0) U/L Ethanol Quant <3 mg/dL Imaging Data CT scan - abdomen: Attestation: I have reviewed the pertinent imaging results. Radiologist's impression: ITS Impressions Abdomen/Pelvis CT 04/30/24 13:24 IMPRESSION: 1. Mild wall thickening of the proximal and distal: Simple nonspecific but suggestive of colitis or inflammatory bowel disease. No significant surrounding inflammatory changes. No bowel obstruction or free fluid. 2. Marked fatty infiltration of the liver. 3. Mild splenomegaly; unchanged. Electronically authenticated by: PETTY MADERA Date: 04/30/2024 16:07 Discharge Plan Discharge Chief Complaint: Abdominal Pain Clinical Impression: Abdominal pain, Colitis Patient Disposition: Home, Self-Care Time of Disposition Decision: 16:25 Condition: Good Prescriptions / Home Meds: New ciprofloxacin HCl 500 mg tablet 500 mg PO Q12H Qty: 14 0RF famotidine [Pepcid] 20 mg tablet 20 mg PO BID Qty: 10 0RF hyoscyamine sulfate [Levsin] 0.125 mg tablet 0.125 mg PO Q6H PRN (Reason: abdominal pain) Qty: 12 0RF promethazine 25 mg tablet 25 mg PO Q6H PRN (Reason: nausea and vomiting) Qty: 12 0RF No Action clonidine HCl 0.2 mg tablet 0.2 mg PO Q12H colchicine 0.6 mg tablet 0.6 mg PO BID escitalopram oxalate 20 mg tablet 20 mg PO DAILY metoprolol tartrate 25 mg tablet 12.5 mg PO Q12H risperidone 1 mg tablet 1 mg PO DAILY trazodone 100 mg tablet 100 mg PO DAILY Patient Comments: at bedtime Print Language: Guatemalan Instructions: Abdominal Pain (ED), Colitis (ED) Referrals: Roopa Galo NP [Primary Care Provider] - 1 week Migel Munoz MD [Physician] - As needed
[2024-04-30 13:55] LABS: Basophils Percent Auto 0.6 % (0.2-2.0); Eosinophils Absolute Auto 0.1 10^3/uL (0.0-0.7); Eosinophils Percent Auto 1.2 % (0.9-7.0); Hematocrit 36.7 % (36.0-48.0); Hemoglobin 12.5 g/dL (12.0-16.0); Immature Granulocytes Abs Auto 0.08 10^3/uL (0.00-0.03); Immature Granulocytes Pct Auto 1.6 % (0.0-0.5); Lymphocytes Absolute Auto 1.2 10^3/uL (1.2-3.8); Lymphocytes Percent Auto 22.9 % (20.5-60.0); Mean Corpuscular HGB Conc 34.1 g/dL (29.9-35.2); Mean Corpuscular Hemoglobin 32.8 pg (26.7-34.0); Mean Corpuscular Volume 96.3 fL (81.0-99.0); Monocytes Absolute Auto 0.5 10^3/uL (0.3-0.8); Monocytes Percent Auto 9.9 % (1.7-12.0); Neutrophils Absolute Auto 3.2 10^3/uL (1.4-6.5); Neutrophils Percent Auto 63.8 % (43.0-75.0); Platelet Count 107 10^3/uL (150-450); Red Blood Count 3.81 10^6/uL (4.20-5.40); Red Cell Distribution Width 13.9 % (11.0-15.0); White Blood Count 5.1 10^3/uL (4.0-11.0)
[2024-04-30 14:03] LABS: INR 1.17; Prothrombin Time 12.2 sec (9.0-11.6)
[2024-04-30] MEDS: PROMETHAZINE HCL 12.5 MG in 0.9 % SODIUM CHLORIDE 50 ML 202 MG IV (14:05)
[2024-04-30] MEDS: 0.9 % SODIUM CHLORIDE 1,000 ML 999 ML IV (14:05)
[2024-04-30] MEDS: FAMOTIDINE/PF 20 MG/2 ML VIAL IV (14:06)
[2024-04-30] MEDS: HYOSCYAMINE SULFATE 0.125 MG TAB.SUBL SL (14:06)
[2024-04-30 14:27] LABS: Ethanol <3 mg/dL
[2024-04-30 14:56] LABS: Alanine Aminotransferase 56 U/L (14-59); Albumin Globulin Ratio 0.9; Albumin Level 2.9 g/dL (3.4-5.0); Alkaline Phosphatase 173 U/L (46-116); Anion Gap 13.8; Aspartate Amino Transferase 87 U/L (15-37); BUN Creatinine Ratio 2.3; Bilirubin Total 0.6 mg/dL (0.2-1.0); Calcium 8.9 mg/dL (8.5-10.1); Carbon Dioxide 23.6 mmol/L (21.0-32.0); Chloride 99 mmol/L (98-107); Estimated GFR (African America >60 (>=60 mL/min/1.73m^2); Estimated GFR (Non-African Ame >60 (>=60 mL/min/1.73m^2); Globulin 3.2 g/dL; Glucose 116 mg/dL (74-106); Magnesium 1.5 mg/dL (1.8-2.4); Potassium 3.4 mmol/L (3.5-5.1); Sodium 133 mmol/L (136-145); Total Protein 6.1 g/dL (6.4-8.2)
[2024-04-30 15:00] LABS: Troponin I High Sensitivity 4.3 pg/mL (4.0-51.3)
[2024-04-30] MEDS: MAGNESIUM SULFATE IN WATER 2 GM/50 ML PREMIX IV (15:43)
[2024-04-30] MEDS: CARBAMIDE PEROXIDE 6.5% EAR DROPS 300 DROP/15 ML BOTTLE 10 DROP OT (16:59)
== END 2024-04-30 17:09 | disposition home or self-care (01) ==
PROVIDERS: Physician Assistant; Emergency Provider Emergency Medicine; PCP Nurse Practitioner
DX: K52.9 Noninfective gastroenteritis and colitis, unspecified (principal); R10.9 Unspecified abdominal pain; F10.20 Alcohol dependence, uncomplicated; F17.200 Nicotine dependence, unspecified, uncomplicated; Y90.0 Blood alcohol level of less than 20 mg/100 ml
CPT/HCPCS: 36415; 74177; 80053; 80320; 83605; 83690; 83735; 84484; 85025; 85610; 93005; 96361; 96365; 96367; 96375; 99285; J2250; J3475; Q9967